=== PATIENT | female | born 1930 | race Caucasian/White ===

== ENCOUNTER 2016-04-13 05:10 | Emergency (ER) | payer MEDICARE, BC ==
[2016-04-13] MEDS ORDERED: MUPIROCIN 2% OINTMENT 22 GM TP ONE (07:26)
--- NOTE | 2016-04-13 07:26 | ER Document Report ---
ED General <CONOR HINTON - Last Filed: 04/13/16 07:27> - General TRAVEL OUTSIDE OF THE [place] IN LAST 30 DAYS: No - HPI Patient complains to provider of: abscess nose pain <SURYA JEONG - Last Filed: 04/13/16 14:35> - General Chief Complaint: Abscess Stated Complaint: SORE NOSE - HPI Notes: Patient coming in for evaluation ofpain possible abscess to her nose. States ongoing for the last 3 days. Patient otherwise denies any fevers chills nausea vomiting (SURYA JEONG) - Related Data Allergies/Adverse Reactions: thimerosal [Thimerosal] Allergy (Unknown, Verified 03/21/11 09:19) adhesive tape [Adhesive Tape] Allergy (Verified 03/17/11 11:07) walker skin oxycodone HCl [From Percocet] Allergy (Verified 03/17/11 11:07) sick Past Medical History - Social History Smoking Status: Never Smoker Chew tobacco use (# tins/day): No Frequency of alcohol use: None Drug Abuse: None Family History: Reviewed & Not Pertinent Patient has suicidal ideation: No Patient has homicidal ideation: No - Past Medical History Cardiac Medical History: Reports: Hx Hypertension - medicated Denies: Hx Heart Attack Pulmonary Medical History: Denies: Hx Asthma Neurological Medical History: Denies: Hx Cerebrovascular Accident, Hx Seizures Renal/ Medical History: Denies: Hx Peritoneal Dialysis GI Medical History: Denies: Hx Hepatitis, Hx Hiatal Hernia, Hx Ulcer Psychiatric Medical History: Denies: Hx Depression Infectious Medical History: Denies: Hx Hepatitis Past Surgical History: Denies: Hx Hysterectomy, Hx Mastectomy, Hx Open Heart Surgery, Hx Pacemaker - Immunizations Hx Pneumococcal Vaccination: 11/16/12 <SURYA JEONG - Last Filed: 04/13/16 14:35> Review of Systems - Review of Systems Constitutional: No symptoms reported EENT: Other - nose pain Cardiovascular: No symptoms reported Respiratory: No symptoms reported Gastrointestinal: No symptoms reported Genitourinary: No symptoms reported Female Genitourinary: No symptoms reported Musculoskeletal: No symptoms reported Skin: No symptoms reported Hematologic/Lymphatic: No symptoms reported Neurological/Psychological: No symptoms reported <SURYA JEONG - Last Filed: 04/13/16 14:35> Physical Exam - Vital signs Interpretation: Normal - General General appearance: Appears well, Alert - HEENT Head: Normocephalic, Atraumatic Eyes: Normal Conjunctiva: Normal Cornea: Normal Extraocular movements intact: Yes Eyelashes: Normal Pupils: PERRL Nasal: Other - Patienthasasmallpimpletotheinsideoftheleftnearwithsurroundingcellulitis - Respiratory Respiratory status: No respiratory distress Chest status: Nontender Breath sounds: Normal Chest palpation: Normal - Cardiovascular Rhythm: Regular Heart sounds: Normal auscultation Murmur: No - Abdominal Inspection: Normal Distension: No distension Bowel sounds: Normal Tenderness: Nontender Organomegaly: No organomegaly - Back Back: Normal, Nontender - Extremities General upper extremity: Normal inspection, Nontender, Normal color, Normal ROM , Normal temperature General lower extremity: Normal inspection, Nontender, Normal color, Normal ROM , Normal temperature, Normal weight bearing. No: Nir's sign - Neurological Neuro grossly intact: Yes Cognition: Normal Orientation: AAOx4 [place] Coma Scale Eye Opening: Spontaneous Cheryl Coma Scale Verbal: Oriented Cheryl Coma Scale Motor: Obeys Commands Cheryl Coma Scale Total: 15 Speech: Normal Motor strength normal: LUE, RUE, LLE, RLE Sensory: Normal - Psychological Associated symptoms: Normal affect, Normal mood - Skin Skin Temperature: Warm Skin Moisture: Dry Skin Color: Normal <SURYA JEONG - Last Filed: 04/13/16 14:35> - Vital signs Vitals: Temp Pulse Resp BP Pulse Ox 97.7 F 66 20 144/65 H 96 04/13/16 05:22 04/13/16 05:22 04/13/16 05:22 04/13/16 05:22 04/13/16 05:22 (CONOR HINTON) (SURYA JEONG) Course <CONOR HINTON - Last Filed: 04/13/16 07:27> <SURYA JEONG - Last Filed: 04/13/16 14:35> - Re-evaluation Re-evalutation: 04/13/16 14:34 Patient will be started on Bactrim and Bactroban for anabolic coverage. Underwent IND see note (SURYA JEONG) - Vital Signs Vital signs: Temp Pulse Resp BP Pulse Ox 98.3 F 55 L 20 138/66 H 99 04/13/16 09:05 04/13/16 09:05 04/13/16 09:05 04/13/16 09:05 04/13/16 09:05 (CONOR HINTON) (SURYA JEONG) Procedures - Incision and Drainage left nare Time completed: 07:27 Type: Simple I&D procedure: Betadine prep applied Incision Method: Incision made with needle Adult Head Front/Back picture: 1 - abscess deroofed, pt tolerated procedure well <CONOR HINTON - Last Filed: 04/13/16 07:27> Discharge <CONOR HINTON - Last Filed: 04/13/16 07:27> <SURYA JEONG - Last Filed: 04/13/16 14:35> - Discharge Clinical Impression: Abscess Cellulitis Qualifiers: Site of cellulitis: face Qualified Code(s): L03.211 - Cellulitis of face Condition: Good Disposition: HOME, SELF-CARE Instructions: Trimethoprim-Sulfa ([facility]), Post Incision and Drainage, Abscess ( [facility]) Additional Instructions: Please take the antibiotic as prescribed. Please use the ointment as directed to was well. Follow-up with your primary care physician in 3-5 days. Prescriptions: Mupirocin Calcium [Bactroban 2% Cream 15 gm] 1 applic TP TID #1 tube Sulfamethoxazole/Trimethoprim [Bactrim Ds Tablet] 1 each PO BID 10 Days Referrals: JUSTICE HARRIS MD [Primary Care Provider] - Follow up in 3-5 days
[2016-04-13] MEDS ORDERED: SULFAMETHOXAZOLE/TRIMETHOPRIM 800-160 MG TABLET PO ONE (07:49)
[2016-04-13 09:10] VITALS: BP 138/66
== END 2016-04-13 09:20 | disposition home or self-care (01) ==
LOC: ER 05:10
PROC: 0H91XZZ Drainage of Face Skin, External Approach (ICD-10-PCS; principal; 2016-04-13)
DX: J34.0 Abscess, furuncle and carbuncle of nose (principal); L03.211 Cellulitis of face; I10 Essential (primary) hypertension; Z88.5 Allergy status to narcotic agent; Z91.048 Other nonmedicinal substance allergy status
CPT/HCPCS: 99283

== ENCOUNTER → 2017-05-19 | Outpatient (CLI) | payer MEDICARE, BC ==
[2017-05-19 14:56] LABS: C-REACTIVE PROTEIN 38.8 mg/L (<10.0); URIC ACID 5.5 mg/dL (2.5-7.5)
== END ==
LOC: OD 13:34
PROVIDERS: ATTEND Internal Medicine Geriatric Medicine
DX: M06.4 Inflammatory polyarthropathy (principal)
CPT/HCPCS: 36415; 84550; 85652; 86140; 86430

== ENCOUNTER 2017-05-23 19:12 | Emergency (ER) | payer MEDICARE, BC ==
[2017-05-23 19:27] VITALS: BP 130/53
--- NOTE | 2017-05-23 19:53 | ER Document Report ---
ED General - General Chief Complaint: Hand Swelling Stated Complaint: HAND PAIN Time Seen by Provider: 05/23/17 19:39 Notes: A 6-year-old female here with complaints of continued bilateral hand swelling and pain ongoing for over a month now. The right more so than the left. They have been seeing their primary physician about this issue outpatient. She has had numerous blood tests performed and states they cannot figure out what is going on. She denies any fevers chills chest pain shortness of breath leg swelling. No prior history of cellulitis MRSA. TRAVEL OUTSIDE OF THE [place] IN LAST 30 DAYS: No - Related Data Allergies/Adverse Reactions: thimerosal [Thimerosal] Allergy (Unknown, Verified 03/21/11 09:19) adhesive tape [Adhesive Tape] Allergy (Verified 03/17/11 11:07) walker skin oxycodone HCl [From Percocet] Allergy (Verified 03/17/11 11:07) sick Past Medical History - Social History Smoking Status: Never Smoker Chew tobacco use (# tins/day): No Frequency of alcohol use: None Drug Abuse: None Family History: Reviewed & Not Pertinent Patient has suicidal ideation: No Patient has homicidal ideation: No - Past Medical History Cardiac Medical History: Reports: Hx Hypertension - medicated Denies: Hx Heart Attack Pulmonary Medical History: Denies: Hx Asthma Neurological Medical History: Denies: Hx Cerebrovascular Accident, Hx Seizures Renal/ Medical History: Denies: Hx Peritoneal Dialysis GI Medical History: Denies: Hx Hepatitis, Hx Hiatal Hernia, Hx Ulcer Psychiatric Medical History: Denies: Hx Depression Infectious Medical History: Denies: Hx Hepatitis Past Surgical History: Denies: Hx Hysterectomy, Hx Mastectomy, Hx Open Heart Surgery, Hx Pacemaker - Immunizations Hx Pneumococcal Vaccination: 11/16/12 Review of Systems - Review of Systems Notes: See history of present illness for pertinent positive review of systems; otherwise all review of systems have been reviewed and are negative Physical Exam - Vital signs Vitals: Temp Pulse Resp BP Pulse Ox 97.8 F 71 22 H 130/53 H 95 05/23/17 19:25 05/23/17 19:25 05/23/17 19:25 05/23/17 19:25 05/23/17 19:25 - Notes Notes: PHYSICAL EXAMINATION: GENERAL: Well-appearing and in no acute distress. HEAD: Atraumatic, normocephalic. EYES: Pupils equal round and reactive to light, extraocular movements intact, sclera anicteric, conjunctiva are normal. ENT: nares patent, oropharynx clear without exudates. Moist mucous membranes. NECK: Normal range of motion, supple without lymphadenopathy LUNGS: CTAB and equal. No wheezes rales or rhonchi. HEART: Regular rate and rhythm without murmurs ABDOMEN: Soft, no tenderness. No facial grimacing/wincing upon palpation. No guarding, no rebound. EXTREMITIES: Normal range of motion. No cyanosis. There is minimal swelling of the left hand and no cellulitis. There is mild swelling of the right hand and distal forearm with overlying minimal erythema and pitting edema. There is no lower extremity pitting edema. NEUROLOGICAL: Cranial nerves grossly intact. Normal sensory/motor exams. PSYCH: Normal mood, normal affect. SKIN: Warm, Dry, normal turgor, no rashes or lesions noted Course - Re-evaluation Re-evalutation: 05/23/17 19:53 MEDICAL DECISION MAKING: Concern for mild cellulitis given the exam findings Her swelling has been ongoing and she is following up outpatient with PCP Will prescribe clindamycin and instructed continue outpatient follow-up Patient understands and agrees to the plan of care - Vital Signs Vital signs: Temp Pulse Resp BP Pulse Ox 97.8 F 71 22 H 130/53 H 95 05/23/17 19:25 05/23/17 19:25 05/23/17 19:25 05/23/17 19:25 05/23/17 19:25 Discharge - Discharge Clinical Impression: Bilateral hand swelling Condition: Good Disposition: HOME, SELF-CARE Additional Instructions: Finish the antibiotics and do not skip any doses. Continue following with your doctor for this chronic hand swelling. You were seen in the emergency department at [facility]. If you were given any sedating medications, be sure not to operate heavy machinery (example - driving) and be sure you are not too sedated to walk appropriately. Please followup with your primary physician in the next few days for further management/evaluation. Please return to the emergency department for worsening of symptoms or any symptom that you deem to be concerning or life-threatening. Thank you for allowing us to be part of your care. Prescriptions: Oxycodone HCl 5 mg PO Q6HP PRN #7 capsule PRN Reason: Clindamycin HCl 150 mg PO TID 7 Days capsule
== END 2017-05-23 19:57 | disposition home or self-care (01) ==
LOC: ER 19:12
DX: M79.89 Other specified soft tissue disorders (principal); M79.641 Pain in right hand; M79.642 Pain in left hand; I10 Essential (primary) hypertension
CPT/HCPCS: 99283

== ENCOUNTER → 2017-10-09 | Outpatient (CLI) | payer MEDICARE, BC ==
[2017-10-09 12:24] LABS: ALANINE AMINOTRANSFERASE 14 U/L (9-52); ALBUMIN 3.3 g/dL (3.5-5.0); ALKALINE PHOSPHATASE 105 U/L (38-126); ANION GAP 15 (5-19); ASPARTATE AMINO TRANSFERASE 18 U/L (14-36); BILIRUBIN,DIRECT 0.3 mg/dL (0.0-0.4); BILIRUBIN,TOTAL 0.5 mg/dL (0.2-1.3); BLOOD UREA NITROGEN 12 mg/dL (7-20); CALCIUM 9.2 mg/dL (8.4-10.2); CARBON DIOXIDE 24 mmol/L (22-30); CHLORIDE 104 mmol/L (98-107); GLUCOSE 117 mg/dL (75-110); POTASSIUM 3.8 mmol/L (3.6-5.0); SODIUM 142.7 mmol/L (137-145); TOTAL PROTEIN 6.3 g/dL (6.3-8.2)
== END ==
LOC: OD 11:05
PROVIDERS: ATTEND Internal Medicine Geriatric Medicine
DX: I10 Essential (primary) hypertension (principal)
CPT/HCPCS: 36415; 80053

== ENCOUNTER 2018-01-31 17:12 | Inpatient (IN) | payer MEDICARE, BC ==
--- NOTE | 2018-01-31 18:02 | ER Document Report ---
ED Medical Screen (RME) - General Chief Complaint: Fall Injury Stated Complaint: FALL/LEG AND KNEE PAIN Time Seen by Provider: 01/31/18 18:00 Mode of Arrival: Wheelchair Information source: Patient, Friend, [facility] Records Notes: 87-year-old female presents with complaint of bilateral knee pain and right hip pain after a fall that occurred yesterday. Since then patient has been unable to bear weight or walk. She denies any preceding chest pain, shortness of breath or lightheadedness. I have greeted and performed a rapid initial assessment of this patient. A comprehensive ED assessment and evaluation of the patient, analysis of test results and completion of medical decision making process we will be contacted by additional ED providers. PHYSICAL EXAMINATION: Vital signs reviewed GENERAL: Well-appearing, well-nourished and in no acute distress. LUNGS: No respiratory distress NEUROLOGICAL: Normal speech, normal gait. PSYCH: Normal mood, normal affect. SKIN: Abrasion knee bilaterally TRAVEL OUTSIDE OF THE [place] IN LAST 30 DAYS: No - HPI Onset: Yesterday Onset/Duration: Sudden Quality of pain: Throbbing Severity: Moderate Associated Symptoms: denies: Chest pain, Dizzy/lightheaded, Nausea, Shortness of breath Exacerbated by: Movement Relieved by: Denies Similar symptoms previously: No Recently seen / treated by doctor: No - Related Data Smoking: Non-smoker Frequency of alcohol use: None Drug Abuse: None Allergies/Adverse Reactions: thimerosal [Thimerosal] Allergy (Unknown, Verified 03/21/11 09:19) adhesive tape [Adhesive Tape] Allergy (Verified 03/17/11 11:07) walker skin Past Medical History - Social History Frequency of alcohol use: None Drug Abuse: None - Past Medical History Cardiac Medical History: Reports: Hx Atrial Fibrillation, Hx Hypertension - medicated Denies: Hx Heart Attack Pulmonary Medical History: Denies: Hx Asthma Neurological Medical History: Denies: Hx Cerebrovascular Accident, Hx Seizures Renal/ Medical History: Denies: Hx Peritoneal Dialysis GI Medical History: Denies: Hx Hepatitis, Hx Hiatal Hernia, Hx Ulcer Psychiatric Medical History: Denies: Hx Depression Infectious Medical History: Denies: Hx Hepatitis Past Surgical History: Reports: Hx Abdominal Surgery - colon removed, adhesions , hernia repair, Hx Orthopedic Surgery - bilateral knee replacement, mendoza. shoulder replacement. Denies: Hx Hysterectomy, Hx Mastectomy, Hx Open Heart Surgery, Hx Pacemaker Physical Exam - Vital signs Vitals: Temp Pulse Resp BP Pulse Ox 97.5 F 62 14 155/70 H 100 01/31/18 17:29 01/31/18 17:29 01/31/18 17:29 01/31/18 17:29 18 17:29 Course - Vital Signs Vital signs: Temp Pulse Resp BP Pulse Ox 97.5 F 62 14 155/70 H 100 01/31/18 17:29 01/31/18 17:29 01/31/18 17:29 18 17:29 18 17:29 Doctor's Discharge - Discharge Referrals: JUSTICE HARRIS MD [Primary Care Provider] - Follow up as needed
--- NOTE | 2018-01-31 20:00 | ER Document Report ---
ED General - General Chief Complaint: Fall Injury Stated Complaint: FALL/LEG AND KNEE PAIN Time Seen by Provider: 01/31/18 18:00 Mode of Arrival: Wheelchair Notes: Patient is an 87-year-old female who presents to the emergency department with a chief complaint of bilateral knee pain and right hip pain. She is here for a mechanical fall. This happened yesterday afternoon when she was getting out of the car, she is out and lost her balance and fell on her knees, right hip, and right elbow. She denies any fever, dizziness, chest pain, nausea, vomiting, or any other symptoms. She was able to walk yesterday, but this morning she was unable to walk. She does have a history of atrial fibrillation and she is on Xarelto. She denies any headache. Denies hitting her head. Denies altered level of consciousness. She also has a past medical history of hypothyroidism and hypertension. Her past surgical history includes bilateral knee replacement (20 years ago), bilateral shoulder replacements, and colostomy with reversal. TRAVEL OUTSIDE OF THE [place] IN LAST 30 DAYS: No - Related Data Allergies/Adverse Reactions: thimerosal [Thimerosal] Allergy (Unknown, Verified 03/21/11 09:19) adhesive tape [Adhesive Tape] Allergy (Verified 03/17/11 11:07) walker skin Past Medical History - General Information source: Patient, Friend, [facility] Records - Social History Smoking Status: Never Smoker Frequency of alcohol use: None Drug Abuse: None Family History: Reviewed & Not Pertinent Patient has suicidal ideation: No Patient has homicidal ideation: No - Past Medical History Cardiac Medical History: Reports: Hx Atrial Fibrillation, Hx Hypertension - medicated Denies: Hx Heart Attack Pulmonary Medical History: Denies: Hx Asthma Neurological Medical History: Denies: Hx Cerebrovascular Accident, Hx Seizures Renal/ Medical History: Denies: Hx Peritoneal Dialysis GI Medical History: Denies: Hx Hepatitis, Hx Hiatal Hernia, Hx Ulcer Psychiatric Medical History: Denies: Hx Depression Infectious Medical History: Denies: Hx Hepatitis Past Surgical History: Reports: Hx Abdominal Surgery - colon removed, adhesions , hernia repair, Hx Orthopedic Surgery - bilateral knee replacement, mendoza. shoulder replacement. Denies: Hx Hysterectomy, Hx Mastectomy, Hx Open Heart Surgery, Hx Pacemaker - Immunizations Hx Pneumococcal Vaccination: 11/16/12 Review of Systems - Review of Systems Notes: REVIEW OF SYSTEMS: CONSTITUTIONAL : Denies recent illness. Denies recent unintentional weight loss. Denies fever, chills, or sweats. EENT: Denies eye, ear, throat, or mouth pain, discharge, or symptoms. Denies nasal or sinus congestion. CARDIOVASCULAR: Denies chest pain. RESPIRATORY: Denies shortness of breath, cough, congestion, difficulty breathing , or wheezing. GASTROINTESTINAL: Denies nausea, vomiting, and diarrhea. Denies abdominal pain. Denies constipation. GENITOURINARY: Denies difficulty urinating, burning, blood in urine, urgency or frequency. MUSCULOSKELETAL: See HPI SKIN: Denies rash, itchiness, or lesions HEMATOLOGIC : Denies easy bruising or bleeding. LYMPHATIC: Denies swollen, painful, enlarged glands. NEUROLOGICAL: Denies no numbness or tingling denies weakness. Denies headache. Denies altered mental status. Denies alteration in speech. PSYCHIATRIC: Denies stress, anxiety, alteration in sleep patterns, or depression. All other systems reviewed and negative. Physical Exam - Vital signs Vitals: Temp Pulse Resp BP Pulse Ox 97.5 F 62 14 155/70 H 100 01/31/18 17:29 01/31/18 17:29 01/31/18 17:29 01/31/18 17:29 01/31/18 17:29 - Notes Notes: PHYSICAL EXAMINATION: GENERAL: Appears well, healthy, well-nourished, no acute distress. HEAD: Normocephalic, atraumatic. EYES: PERRL, conjunctiva normal, all extraocular movements intact, sclera nonicteric ENT: Moist mucous membranes. NECK: Supple, no noticeable swelling, redness, rash. Normal range of motion. LUNGS: Equal breath sounds bilaterally and clear to auscultation. No wheezes rales or rhonchi. CARDIOVASCULAR: S1-S2, regular rate, regular rhythm. Radial pulses 2+, normal. ABDOMEN: Normoactive bowel sounds. Soft, large, nontender, no guarding, no rebound tenderness. EXTREMITIES: Decreased range of motion to right leg. 1+ pitting edema to bilateral lower extremities. NEUROLOGICAL: Moves all extremities upon command. Strength 5/5 in all extremities. PSYCH: Normal mood, normal affect. SKIN: Warm, dry. No rash, lesions, ulcerations noted. Normal skin turgor. NEUROVASCULAR: 2+ dorsalis pedis pulses. Normal neurovascular exam. Course - Re-evaluation Re-evalutation: 01/31/18 20:30 Patient is unable to move her right leg, I am suspicious she has an acute injury to her right knee or right hip. She does complain of pain to the right hip, but states her pain is not that bad. Since she did not hit her head, I do not suspect any brain injury. She is appropriate and answering questions. She states she has not been confused or had any significant change in level of consciousness. Her certified orthoptist is at bedside and states she has not had a bowel movement in 3 days, but the patient denies any abdominal pain. I have encouraged the patient to have a bowel movement because I am able to palpate stool on physical exam. 01/31/18 21:15 Dr. Medrano was notified by ZEYAD Reynoso that the patient has a right hip fracture. Dr. Mosley will be notified for admission for medical management because she is older than 70 years old. I will order a chest x-ray, twelve- lead EKG, CBC and CMP for preop. 01/31/18 21:34 Dr. Mosley was notified of patient's right hip fracture. He is excepted her for admission to [facility]. - Vital Signs Vital signs: Temp Pulse Resp BP Pulse Ox 98.6 F 62 23 H 156/71 H 93 02/01/18 00:00 01/31/18 17:29 02/01/18 00:02 02/01/18 00:02 02/01/18 00:02 - Laboratory Result Diagrams: 01/31/18 22:22 01/31/18 22:22 Discharge - Discharge Clinical Impression: Closed right hip fracture Qualifiers: Encounter type: initial encounter Qualified Code(s): S72.001A - Fracture of unspecified part of neck of right femur, initial encounter for closed fracture Condition: Fair Disposition: ADMITTED INPATIENT Admitting Provider: Dimitri Unit Admitted: [facility]
--- NOTE | 2018-01-31 20:44 | RADIOLOGY REPORT (SQ) ---
EXAM DESCRIPTION: PELVIS AP COMPLETED DATE/TIME: 01/31/2018 8:21 pm REASON FOR STUDY: pain inability to ambulate COMPARISON: None. NUMBER OF VIEWS: One view TECHNIQUE: AP Pelvis LIMITATIONS: None. FINDINGS: There is diffuse osteopenia. There is an acute, displaced impacted fracture at the right femoral neck. The left hip joint is maintained. The pelvic ring appears intact. Degenerative samaniego es are noted at the visualized lower lumbar spine and sacroiliac joints. Multiple surgical clips are noted within the left lower quadrant. The soft tissues are unremarkable. IMPRESSION: Osteopenia. Acute, impacted fracture of the right femoral neck. TECHNICAL DOCUMENTATION: JOB ID: [id number] 2010 [employer]- All Rights Reserved Reading location - IP/workstation name: [email or web address]
--- NOTE | 2018-01-31 20:48 | RADIOLOGY REPORT (SQ) ---
EXAM DESCRIPTION: ELBOW RIGHT OVER 2 VIEWS COMPLETED DATE/TIME: 01/31/2018 8:21 pm REASON FOR STUDY: fall getting out of the car. Pain all over . COMPARISON: None. NUMBER OF VIEWS: Four views. TECHNIQUE: AP, lateral, and both oblique radiographic images acquired of the right elbow. LIMITATIONS: None. FINDINGS: MINERALIZATION: Normal. BONES: No acute fracture or dislocation. JOINT: No effusion. SOFT TISSUES: No soft tissue swelling. No radiopaque foreign body. IMPRESSION: No radiographic evidence for acute fracture of the right elbow. TECHNICAL DOCUMENTATION: JOB ID: [id number] 2010 [facility]- All Rights Reserved Reading location - IP/workstation name: [email or web address]
--- NOTE | 2018-01-31 20:53 | RADIOLOGY REPORT (SQ) ---
EXAM DESCRIPTION: KNEE BILATERAL 1-2 VIEWS COMPLETED DATE/TIME: 01/31/2018 8:21 pm REASON FOR STUDY: fall getting out of the car. Pain all over, worse at the right knee. COMPARISON: None. NUMBER OF VIEWS: Four views. TECHNIQUE: AP and lateral radiographic images acquired of the right and left knees. LIMITATIONS: None. FINDINGS: MINERALIZATION: Osteopenia. 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 The re is no acute fracture or dislocation. The orthopedic hardware appears intact. JOINT: No effusion. SOFT TISSUES: There is diffuse soft tissue swelling at the right knee. Vascular calcifications are n oted. IMPRESSION: Status post total bilateral knee arthroplasties with no radiographic evidence for acute fracture. Diffuse soft tissue swelling at the right knee. TECHNICAL DOCUMENTATION: JOB ID: [id number] 2010 [employer]- All Rights Reserved Reading location - IP/workstation name: [email or web address]
[2018-01-31] MEDS ORDERED: FENTANYL CITRATE INJ/PF 100 MCG/2 ML AMPUL IV ONE (21:09)
--- NOTE | 2018-01-31 22:05 | RADIOLOGY REPORT (SQ) ---
EXAM DESCRIPTION: XR CHEST 1 VIEW COMPLETED DATE/TME: 01/31/2018 21:37 CLINICAL HISTORY: 87 years, Female, pre-op Findings: Heart is mildly enlarged. Aorta is within normal limits. No consolidation or pleural effusion. No pulmonary edema or pneumothorax. IMPRESSION: No acute disease.
[2018-01-31 22:19] LABS: APPEARANCE,URINE CLEAR; BILIRUBIN,URINE NEGATIVE (NEGATIVE); COLOR,URINE YELLOW; GLUCOSE, URINE NEGATIVE (NEGATIVE); KETONES,URINE NEGATIVE (NEGATIVE); LEUKOCYTE ESTERASE,URINE NEGATIVE (NEGATIVE); NITRITE,URINE NEGATIVE (NEGATIVE); PROTEIN,URINE 30 mg/dL (NEGATIVE)
[2018-01-31 22:33] LABS: HEMATOCRIT 32.2 % (36.0-47.0); HEMOGLOBIN 10.2 g/dL (12.0-15.5); MEAN CORPUSCULAR HEMOGLOBIN 26.9 pg (27.0-33.4); MEAN CORPUSCULAR HGB CONC 31.7 g/dL (32.0-36.0); MEAN CORPUSCULAR VOLUME 85 fl (80-97); PLATELET COUNT 515 10^3/uL (150-450); RED CELL DISTRIBUTION WIDTH 17.7 % (11.5-14.0); WHITE BLOOD COUNT 20.4 10^3/uL (4.0-10.5)
[2018-01-31 22:48] LABS: ALANINE AMINOTRANSFERASE 18 U/L (9-52); ALBUMIN 3.1 g/dL (3.5-5.0); ALKALINE PHOSPHATASE 152 U/L (38-126); ANION GAP 11 (5-19); ASPARTATE AMINO TRANSFERASE 33 U/L (14-36); BILIRUBIN,DIRECT 0.6 mg/dL (0.0-0.4); BILIRUBIN,TOTAL 1.1 mg/dL (0.2-1.3); BLOOD UREA NITROGEN 14 mg/dL (7-20); CALCIUM 8.6 mg/dL (8.4-10.2); CARBON DIOXIDE 26 mmol/L (22-30); CHLORIDE 97 mmol/L (98-107); GLUCOSE 163 mg/dL (75-110); POTASSIUM 4.5 mmol/L (3.6-5.0); SODIUM 133.9 mmol/L (137-145); TOTAL PROTEIN 6.3 g/dL (6.3-8.2)
[2018-01-31 22:49] LABS: ABSOLUTE LYMPHOCYTES# (MANUAL) 1.2 10^3/uL (0.5-4.7); ABSOLUTE MONOCYTES # (MANUAL) 0.6 10^3/uL (0.1-1.4); ABSOLUTE NEUTROPHILS# (MANUAL) 18.6 10^3/uL (1.7-8.2); BASOPHILS % (MANUAL) 0 % (0-2); EOSINOPHILS % (MANUAL) 0 % (0-6); LYMPHOCYTES % (MANUAL) 6 % (13-45); MONOCYTES % (MANUAL) 3 % (3-13); SEGMENTED NEUTROPHILS % (MAN) 91 % (42-78); TOTAL CELLS COUNTED 100
[2018-01-31 22:54] LABS: BURR CELLS SLIGHT; HELMET CELLS SLIGHT; OVALOCYTES 1+; TEAR DROP CELLS SLIGHT; TOXIC GRANULATION 1+; TOXIC VACUOLATION PRESENT
[2018-01-31 22:55] LABS: ANISOCYTOSIS 1+; PLATELET COMMENT ADEQUATE; POIKILOCYTOSIS 1+
--- NOTE | 2018-02-01 00:51 | EKG REPORT ---
SEVERITY:- ABNORMAL ECG - ATRIAL FIBRILLATION LEFT AXIS DEVIATION LOW VOLTAGE IN FRONTAL LEADS NONSPECIFIC T ABNORMALITIES, ANT-LAT LEADS : Confirmed by: Nette Glover MD 01-Feb-2018 00:50:36
[2018-02-01] MEDS ORDERED: MORPHINE SULFATE 10 MG/ML INJ IV ONE (01:16)
[2018-02-01] MEDS: ONDANSETRON HCL INJ/PF 4 MG/2 ML SDV IV PRN (01:23)
[2018-02-01] MEDS ORDERED: DEXTROSE 5%-WATER 1000 ML 1,000 ML IV PRN (06:31)
[2018-02-01] MEDS ORDERED: DEXTROSE 40% GEL 15 GM TUBE PO PRN ×2 (06:31)
[2018-02-01] MEDS ORDERED: GLUCAGON,HUMAN RECOMB 1 MG INJ SUBCUT PRN (06:31)
[2018-02-01] MEDS ORDERED: DEXTROSE 50%-WATER 25 GM/50 ML DISP.SYRIN IV PRN ×2 (06:31)
[2018-02-01] MEDS: LANSOPRAZOLE 30 MG TAB.RAP.DR PO SCH (06:49)
--- NOTE | 2018-02-01 07:13 | PDOC CONSULTATION ---
Consultation Consult Date: 02/01/18 Consult reason:: Right hip fracture History of Present Illness Admission Date/PCP: 01/31/18 21:46 JUSTICE KIMBERLY History of Present Illness: WILLIAM FISH is a 87 year old female The patient is an 87-year-old white female who is hard of hearing, a household ambulator with a walker, on Xarelto for atrial fibrillation, who fell on the day prior and sustained a right hip injury. She was evaluated in the emergency room where a right femoral neck fracture was identified. She is admitted to her primary care physician and orthopedics is consulted for fracture management. Past Medical History Cardiac Medical History: Reports: Atrial Fibrillation, Hypertension - medicated Denies: Myocardial Infarction Pulmonary Medical History: Denies: Asthma Neurological Medical History: Denies: Seizures GI Medical History: Denies: Hepatitis, Hiatal Hernia Psychiatric Medical History: Denies: Depression Hematology: Denies: Anemia, Sickle Cell Disease Past Surgical History Past Surgical History: Reports: Orthopedic Surgery - bilateral knee replacement , mendoza. shoulder replacement Denies: Amputation, Hysterectomy, Mastectomy, Pacemaker Social History Information Source: Patient, [facility]LY [facility], LATER [facility] Records Smoking Status: Never Smoker Frequency of Alcohol Use: None Hx Recreational Drug Use: No Drugs: None Hx Prescription Drug Abuse: No - Advance Directive Resuscitation Status: Full Code Family History Family History: Reviewed & Not Pertinent Parental Family History Reviewed: No Children Family History Reviewed: No Sibling(s) Family History Reviewed.: No Medication/Allergy Home Medications: Furosemide [Lasix 40 mg Tablet] 40 mg PO QAM 03/17/11 [place]-3 Fatty Acids/Fish Oil [[place] 3 1,000 mg Softgel] 3,000 mg PO DAILY Potassium Chloride [Klor-Con 10 Meq Capsule ER] 20 meq PO Q12H 03/17/11 Calcium Carbonate [Calcium] 600 mg PO TID 04/25/13 Fluticasone Propionate [Flonase Nasal [place] 50 Mcg/[place] 16 gm] 2 sprays NASL DAILY PRN 07/13/14 Tramadol HCl/Acetaminophen [Tramadol-Acetaminophn 37.5-325] 1 each PO Q6HP PRN 07/13/14 Mupirocin Calcium [Bactroban 2% Cream 15 gm] 1 applic TP TID #1 tube 04/13/16 Oxycodone HCl 5 mg PO Q6HP PRN #7 capsule 05/23/17 Amlodipine Besylate [Norvasc 5 mg Tablet] 5 mg PO DAILY 01/31/18 Amoxicillin 500 mg PO DAILY PRN 01/31/18 Atorvastatin Calcium [Lipitor 10 mg Tablet] 10 mg PO DAILY 01/31/18 Cetirizine HCl [Zyrtec 5 mg Tablet] 5 mg PO DAILY PRN 01/31/18 Duloxetine HCl [Cymbalta] 20 mg PO QHS 01/31/18 Levothyroxine Sodium [Synthroid 0.088 mg Tablet] 88 mcg PO DAILY 01/31/18 Allergies/Adverse Reactions: thimerosal [Thimerosal] Allergy (Unknown, Verified 03/21/11 09:19) adhesive tape [Adhesive Tape] Allergy (Verified 03/17/11 11:07) walker skin Review of Systems All systems: as per PMH Physical Exam Vital Signs: Temp Pulse Resp BP Pulse Ox 36.8 C 83 20 146/55 H 94 02/01/18 02:28 02/01/18 02:28 02/01/18 02:28 02/01/18 02:28 02/01/18 02:28 Intake & Output 01/31/18 02/01/18 02/02/18 06:59 06:59 06:59 Intake Total 0 Output Total 1050 Balance -1050 Weight 101.9 kg Physical Exam: The patient is a moderately built elderly white female lying in a hospital bed. She is accompanied by a caregiver in the recliner next to her. She is alert and appropriate. General appearance: PRESENT: no acute distress, mild distress Head exam: PRESENT: normocephalic Respiratory exam: PRESENT: unlabored Cardiovascular exam: PRESENT: RRR Pulses: PRESENT: +1 pedal pulses bilateral Vascular exam: PRESENT: normal capillary refill GI/Abdominal exam: PRESENT: soft Rectal exam: PRESENT: deferred Extremities exam: PRESENT: other - Right lower extremity is shortened and externally rotated distal neurovascular examination is intact. Neurological exam: PRESENT: alert, awake, oriented to person, oriented to place , oriented to time, oriented to situation, other - Hard of hearing. ABSENT: motor sensory deficit Psychiatric exam: PRESENT: appropriate affect, normal mood. ABSENT: homicidal ideation, suicidal ideation Skin exam: PRESENT: dry, intact, warm. ABSENT: cyanosis, rash Results Laboratory Results: 01/31/18 22:22 01/31/18 22:22 01/31/18 01/31/18 01/31/18 21:58 22:22 22:22 WBC 20.4 H RBC 3.80 Hgb 10.2 L Hct 32.2 L MCV 85 MCH 26.9 L MCHC 31.7 L RDW 17.7 H Plt Count 515 H Seg Neutrophils % Not Reportable Lymphocytes % Not Reportable Monocytes % Not Reportable Eosinophils % Not Reportable Basophils % Not Reportable Absolute Neutrophils Not Reportable Absolute Lymphocytes Not Reportable Absolute Monocytes Not Reportable Absolute Eosinophils Not Reportable Absolute Basophils Not Reportable Sodium 133.9 L Potassium 4.5 Chloride 97 L Carbon Dioxide 26 Anion Gap 11 BUN 14 Creatinine 0.59 Est GFR ( Amer) > 60 Est GFR (Non-Af Amer) > 60 Glucose 163 H Calcium 8.6 Total Bilirubin 1.1 AST 33 ALT 18 Alkaline Phosphatase 152 H Total Protein 6.3 Albumin 3.1 L Urine Color YELLOW Urine Appearance CLEAR Urine pH 6.0 Ur Specific [place] 1.020 Urine Protein 30 H Urine Glucose (UA) NEGATIVE Urine Ketones NEGATIVE Urine Blood NEGATIVE Urine Nitrite NEGATIVE Ur Leukocyte Esterase NEGATIVE Urine WBC (Auto) 1 Urine RBC (Auto) 0 Impressions: Knee X-Ray 01/31/18 18:00 IMPRESSION: Status post total bilateral knee arthroplasties with no radiographic evidence for acute fracture. Diffuse soft tissue swelling at the right knee. Pelvis X-Ray 01/31/18 18:00 IMPRESSION: Osteopenia. Acute, impacted fracture of the right femoral neck. Elbow X-Ray 01/31/18 19:55 IMPRESSION: No radiographic evidence for acute fracture of the right elbow. Chest X-Ray 01/31/18 21:37 IMPRESSION: No acute disease. Status: Imported from PACS Assessment & Plan - Diagnosis (1) Closed right hip fracture Qualifiers: Encounter type: initial encounter Qualified Code(s): S72.001A - Fracture of unspecified part of neck of right femur, initial encounter for closed fracture Plan: 87-year-old white female household ambulator with a displaced right femoral neck fracture. Patient be best served with a right hemiarthroplasty to enable weightbearing as tolerated ambulation. This is discussed with the patient and her caregiver in great detail. We will proceed pending medical clearance and or availability. - Time Time Spent: 50 to 70 Minutes Anticipated discharge: SNF Within: Other
[2018-02-01] MEDS ORDERED: INSULIN LISPRO 100 UNIT/ML 3 ML VIAL SUBCUT PRN (07:45)
[2018-02-01] MEDS ORDERED: TRANEXAMIC ACID INJ/PF 1,000 MG/10 ML SDV IV PRN (08:27)
[2018-02-01] MEDS ORDERED: VANCOMYCIN HCL 1,000 MG in DEXTROSE 5%-WATER 250 ML IV PRN (08:27)
[2018-02-01 08:43] LABS: INTERNATIONAL RATION (INR) 1.46; PROTHROMBIN TIME 18.4 SEC (11.4-15.4)
[2018-02-01 08:44] LABS: PARTIAL THROMBOPLASTIN TIME 48.8 SEC (23.5-35.8)
[2018-02-01] MEDS: MORPHINE SULFATE 10 MG/ML INJ IV PRN ×3 (09:23→21:00)
[2018-02-01] MEDS: RINGERS SOLUTION,LACTATED 1,000 ML IV PRN ×2 (09:28→17:47)
--- NOTE | 2018-02-01 16:35 | PDOC H&P ---
History of Present Illness Admission Date/PCP: 01/31/18 21:46 JUSTICE KIMBERLY Patient complains of: Difficuulty with walking and right hip joint pain History of Present Illness: WILLIAM FISH is a 87 year old female known to my practice who presented to the ED after a day fall history. She was getting out of a car when she lost her balance and fell on her knees, right elbow and hip joints. She was able to ambulate on the day of the incident but woke up on the next day with inability to ambulate and right hip joint pain. Her initial evaluation in the ED with pelvic X ray revealed right impacted femoral neck fracture. She denied any preceding chest pain, palpitation, or loss of consciousness. She has history of chronic atrial fibrillation and currently on Xarelto. Her other morbidities include hypertension, hypothyroidism, osteoarthritis, and hearing impairment. She was advised hospitalization regarding surgical intervention for her right hip fracture. Past Medical History Cardiac Medical History: Reports: Atrial Fibrillation, Hypertension - medicated Denies: Myocardial Infarction Pulmonary Medical History: Denies: Asthma Neurological Medical History: Denies: Seizures GI Medical History: Denies: Hepatitis, Hiatal Hernia Psychiatric Medical History: Denies: Depression Hematology: Denies: Anemia, Sickle Cell Disease Past Surgical History Past Surgical History: Reports: Orthopedic Surgery - bilateral knee replacement , mendoza. shoulder replacement Denies: Amputation, Hysterectomy, Mastectomy, Pacemaker Social History Smoking Status: Never Smoker Frequency of Alcohol Use: None Hx Recreational Drug Use: No Drugs: None Hx Prescription Drug Abuse: No - Advance Directive Resuscitation Status: Full Code Family History Family History: Reviewed & Not Pertinent Parental Family History Reviewed: Yes Children Family History Reviewed: Yes Sibling(s) Family History Reviewed.: Yes Medication/Allergy Home Medications: Furosemide [Lasix 40 mg Tablet] 40 mg PO QAM 03/17/11 Potassium Chloride [Klor-Con 10 Meq Capsule ER] 20 meq PO DAILY 03/17/11 Calcium Carbonate [Calcium] 600 mg PO DAILY 04/25/13 Fluticasone Propionate [Flonase Nasal [place] 50 Mcg/[place] 16 gm] 2 sprays NASL DAILY PRN 07/13/14 Tramadol HCl/Acetaminophen [Tramadol-Acetaminophn 37.5-325] 1 each PO TIDP PRN 07/13/14 Amlodipine Besylate [Norvasc 5 mg Tablet] 5 mg PO DAILY 01/31/18 Cetirizine HCl [Zyrtec 5 mg Tablet] 5 mg PO DAILY 01/31/18 Levothyroxine Sodium [Synthroid 0.088 mg Tablet] 0.088 mg PO Q6AM 01/31/18 Bifidobacterium Infantis [Align 4 mg Capsule] 1 cap PO DAILY 02/01/18 Cyanocobalamin (Vitamin B-12) [Vitamin B-12 Inj 1000 Mcg/1 ml Vial] 1,000 mcg IM .MONTHLY 02/01/18 Duloxetine HCl [Cymbalta 20 Mg Capsule.Dr] 20 mg PO QHS 02/01/18 Krill/Om-3/Dha/Epa/Phospho/Ast [[place]-3 Krill Oil Sfgl] 1 each PO DAILY 02/01/18 Multivitamin/Folic Acid/Biotin [Hair, Skin and Nails Tablet] 3 each PO DAILY Rivaroxaban [Xarelto 15 mg Tablet] 15 mg PO QHS 02/01/18 Rosuvastatin Calcium [Crestor 10 mg Tablet] 10 mg PO QHS 02/01/18 Allergies/Adverse Reactions: thimerosal [Thimerosal] Allergy (Unknown, Verified 03/21/11 09:19) adhesive tape [Adhesive Tape] Allergy (Verified 03/17/11 11:07) walker skin Review of Systems Constitutional: ABSENT: chills, fever(s), headache(s), weight gain, weight loss Eyes: ABSENT: visual disturbances Ears: PRESENT: hearing changes Nose, Mouth, and Throat: ABSENT: as per HPI, headache(s), mouth pain, sore throat, vertigo, other Cardiovascular: ABSENT: chest pain, dyspnea on exertion, edema, orthropnea, palpitations Respiratory: ABSENT: cough, hemoptysis Gastrointestinal: ABSENT: abdominal pain, constipation, diarrhea, hematemesis, hematochezia, nausea, vomiting Genitourinary: ABSENT: dysuria, hematuria Musculoskeletal: PRESENT: deformity - related to multiple joints involvement with arthritis Integumentary: ABSENT: rash, wounds Neurological: ABSENT: abnormal gait, abnormal speech, confusion, dizziness, focal weakness, syncope Endocrine: ABSENT: cold intolerance, heat intolerance, polydipsia, polyuria Hematologic/Lymphatic: ABSENT: easy bleeding, easy bruising, lymphadenopathy Allergic/Immunologic: ABSENT: seasonal rhinorrhea Physical Exam Vital Signs: Temp Pulse Resp BP Pulse Ox 98.0 F 76 16 138/58 H 100 02/01/18 11:41 02/01/18 14:00 02/01/18 11:41 02/01/18 11:41 02/01/18 11:41 Intake & Output 01/31/18 02/01/18 02/02/18 06:59 06:59 06:59 Intake Total 0 197 Output Total 1050 300 Balance -1050 -103 Weight 101.9 kg General appearance: PRESENT: mild distress - due to right hip joint pain, obese Head exam: PRESENT: atraumatic, normocephalic Eye exam: PRESENT: conjunctiva pink, EOMI, PERRLA. ABSENT: scleral icterus Ear exam: PRESENT: normal external ear exam Mouth exam: PRESENT: moist, tongue midline Neck exam: PRESENT: full ROM. ABSENT: carotid bruit, JVD, lymphadenopathy, thyromegaly Respiratory exam: PRESENT: clear to auscultation mendoza, decreased breath sounds - lung bases Cardiovascular exam: PRESENT: irregular rhythm, +S1, +S2. ABSENT: diastolic murmur, systolic murmur Vascular exam: PRESENT: normal capillary refill. ABSENT: pallor GI/Abdominal exam: PRESENT: normal bowel sounds, soft. ABSENT: distended, guarding, mass, organolmegaly, rebound, tenderness Rectal exam: PRESENT: deferred Gentrourinary exam: PRESENT: indwelling catheter Extremities exam: PRESENT: tenderness - right hip joint Musculoskeletal exam: PRESENT: deformity - right hip joint with external rotation of right leg, tenderness - right hip joint Neurological exam: PRESENT: alert, awake, oriented to person, oriented to place , oriented to time, oriented to situation, CN II-XII grossly intact - hearing impairment. ABSENT: motor sensory deficit Psychiatric exam: PRESENT: appropriate affect, normal mood. ABSENT: homicidal ideation, suicidal ideation Skin exam: PRESENT: dry, warm Results Laboratory Results: 01/31/18 22:22 01/31/18 22:22 01/31/18 01/31/18 01/31/18 21:58 22:22 22:22 WBC 20.4 H RBC 3.80 Hgb 10.2 L Hct 32.2 L MCV 85 MCH 26.9 L MCHC 31.7 L RDW 17.7 H Plt Count 515 H Seg Neutrophils % Not Reportable Lymphocytes % Not Reportable Monocytes % Not Reportable Eosinophils % Not Reportable Basophils % Not Reportable Absolute Neutrophils Not Reportable Absolute Lymphocytes Not Reportable Absolute Monocytes Not Reportable Absolute Eosinophils Not Reportable Absolute Basophils Not Reportable Sodium 133.9 L Potassium 4.5 Chloride 97 L Carbon Dioxide 26 Anion Gap 11 BUN 14 Creatinine 0.59 Est GFR ( Amer) > 60 Est GFR (Non-Af Amer) > 60 Glucose 163 H Calcium 8.6 Total Bilirubin 1.1 AST 33 ALT 18 Alkaline Phosphatase 152 H Total Protein 6.3 Albumin 3.1 L Urine Color YELLOW Urine Appearance CLEAR Urine pH 6.0 Ur Specific [place] 1.020 Urine Protein 30 H Urine Glucose (UA) NEGATIVE Urine Ketones NEGATIVE Urine Blood NEGATIVE Urine Nitrite NEGATIVE Ur Leukocyte Esterase NEGATIVE Urine WBC (Auto) 1 Urine RBC (Auto) 0 Impressions: Knee X-Ray 01/31/18 18:00 IMPRESSION: Status post total bilateral knee arthroplasties with no radiographic evidence for acute fracture. Diffuse soft tissue swelling at the right knee. Pelvis X-Ray 01/31/18 18:00 IMPRESSION: Osteopenia. Acute, impacted fracture of the right femoral neck. Elbow X-Ray 01/31/18 19:55 IMPRESSION: No radiographic evidence for acute fracture of the right elbow. Chest X-Ray 01/31/18 21:37 IMPRESSION: No acute disease. Assessment & Plan - Diagnosis (1) Closed right hip fracture Qualifiers: Encounter type: initial encounter Qualified Code(s): S72.001A - Fracture of unspecified part of neck of right femur, initial encounter for closed fracture Is this a current diagnosis for this admission?: Yes Plan: Admit to hospital. Orthopedic surgeon consultation with Dr Ian Medrano requested. She will need post op SNF physical rehabilitation due to her advance age and living situation. (2) Chronic atrial fibrillation Is this a current diagnosis for this admission?: Yes Plan: We will hold Xarelto in view of pending surgical intervention. Obtain coagulation study to ensure status before surgery in view of possible drug-drug intervention that may affect coagulation. (3) Hypertension Qualifiers: Hypertension type: essential hypertension Qualified Code(s): I10 - Essential (primary) hypertension Is this a current diagnosis for this admission?: Yes Plan: Maintain on preadmission medication management. Monitor his renal indices. (4) Hypothyroidism Qualifiers: Hypothyroidism type: acquired Qualified Code(s): E03.9 - Hypothyroidism, unspecified Is this a current diagnosis for this admission?: Yes Plan: Continue preadmission medication management. (5) Osteoarthritis involving multiple 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 of body Is this a current diagnosis for this admission?: Yes Plan: Continue pain management and engage physical therapy post op. Patient will need physical rehabilitation post op at SNF due to advance age and her living situation. (6) Vitamin B 12 deficiency Is this a current diagnosis for this admission?: Yes Plan: Maintain on preadmission medication management. - Time Time Spent: 50 to 70 Minutes Medications reviewed and adjusted accordingly: Yes Anticipated discharge: SNF - for short term rehabilitation Within: Other - Inpatient Certification Based on my medical assessment, after consideration of the patient's comorbidities, presenting symptoms, or acuity I expect that the services needed warrant INPATIENT care.: Yes I certify that my determination is in accordance with my understanding of Medicare's requirements for reasonable and necessary INPATIENT services [42 CFR 412.3e].: Yes Medical Necessity: Need Close Monitoring Due to Risk of Patient Decompensation, Need For IV Fluids, Need For Continuous Telemetry Monitoring, Need for Pain Control, Need for Surgery, Risk of Diagnosis Which Will Require Inpatient Eval/ Care/Monitoring Post Hospital Care: D/C or Transfer Summary - Plan Summary Plan Summary: See admitting attending physician orders as per above outlined care plan.
[2018-02-02] MEDS: RINGERS SOLUTION,LACTATED 1,000 ML IV PRN ×3 (00:55→22:56)
[2018-02-02] MEDS: LEVOTHYROXINE SODIUM 0.088 MG TABLET PO SCH (05:43)
[2018-02-02] MEDS: LANSOPRAZOLE 30 MG TAB.RAP.DR PO SCH (05:43)
[2018-02-02 06:26] LABS: ABSOLUTE BASOPHILS # (AUTO) 0.2 10^3/uL (0.0-0.2); ABSOLUTE EOSINOPHILS # (AUTO) 0.5 10^3/uL (0.0-0.6); ABSOLUTE LYMPHOCYTES (AUTO) 1.2 10^3/uL (0.5-4.7); ABSOLUTE NEUT (AUTO) 11.3 10^3/uL (1.7-8.2); BASOPHILS % (AUTO) 1.2 % (0-2); EOSINOPHILS % (AUTO) 3.7 % (0-6); HEMATOCRIT 30.7 % (36.0-47.0); HEMOGLOBIN 9.7 g/dL (12.0-15.5); LYMPHOCYTES % (AUTO) 8.6 % (13-45); MEAN CORPUSCULAR HEMOGLOBIN 26.5 pg (27.0-33.4); MEAN CORPUSCULAR HGB CONC 31.7 g/dL (32.0-36.0); MEAN CORPUSCULAR VOLUME 83 fl (80-97); MONOCYTES % (AUTO) 6.8 % (3-13); PLATELET COUNT 443 10^3/uL (150-450); RED BLOOD COUNT 3.68 10^6/uL (3.72-5.28); RED CELL DISTRIBUTION WIDTH 18.6 % (11.5-14.0); SEGMENTED NEUTROPHILS % (AUTO) 79.7 % (42-78); TOTAL CELLS COUNTED % (AUTO) 100 %; WHITE BLOOD COUNT 14.2 10^3/uL (4.0-10.5)
[2018-02-02 06:32] LABS: PROTHROMBIN TIME 16.8 SEC (11.4-15.4)
[2018-02-02 06:33] LABS: PARTIAL THROMBOPLASTIN TIME 42.3 SEC (23.5-35.8)
[2018-02-02 06:54] LABS: ALANINE AMINOTRANSFERASE 10 U/L (9-52); ALBUMIN 2.5 g/dL (3.5-5.0); ALKALINE PHOSPHATASE 122 U/L (38-126); ANION GAP 7 (5-19); ASPARTATE AMINO TRANSFERASE 17 U/L (14-36); BILIRUBIN,DIRECT 0.3 mg/dL (0.0-0.4); BILIRUBIN,TOTAL 0.6 mg/dL (0.2-1.3); BLOOD UREA NITROGEN 8 mg/dL (7-20); CARBON DIOXIDE 27 mmol/L (22-30); CHLORIDE 101 mmol/L (98-107); GLUCOSE 131 mg/dL (75-110); POTASSIUM 4.1 mmol/L (3.6-5.0); SODIUM 134.9 mmol/L (137-145); TOTAL PROTEIN 5.1 g/dL (6.3-8.2)
--- NOTE | 2018-02-02 07:16 | PDOC PROGRESS REPORT ---
Subjective Progress Note for:: 02/02/18 Reason For Visit: CLOSED FRACTURE OF RIGHT HIP 87-year-old white female with a right femoral neck fracture who was initially scheduled for surgical intervention yesterday but this was delayed because of an apparent coagulopathy. Patient with minimal complaints this morning. Physical Exam Vital Signs: Temp Pulse Resp BP Pulse Ox 36.8 C 88 20 150/60 H 95 02/02/18 03:27 02/02/18 03:27 02/02/18 03:27 02/02/18 03:27 02/02/18 03:27 Intake & Output 02/01/18 02/02/18 02/03/18 06:59 06:59 06:59 Intake Total 0 2597 Output Total 1050 1425 Balance -1050 1172 Weight 101.9 kg 106.6 kg General appearance: PRESENT: no acute distress, mild distress Head exam: PRESENT: normocephalic Respiratory exam: PRESENT: unlabored Cardiovascular exam: PRESENT: RRR Pulses: PRESENT: +1 pedal pulses bilateral Vascular exam: PRESENT: normal capillary refill Neurological exam: PRESENT: alert, awake, oriented to person, oriented to place , oriented to time, oriented to situation. ABSENT: motor sensory deficit Psychiatric exam: PRESENT: appropriate affect, normal mood. ABSENT: homicidal ideation, suicidal ideation Skin exam: PRESENT: dry, intact, warm. ABSENT: cyanosis, rash Results Laboratory Results: 02/02/18 05:31 02/02/18 05:31 02/02/18 02/02/18 05:31 05:31 WBC 14.2 H RBC 3.68 L Hgb 9.7 L Hct 30.7 L MCV 83 MCH 26.5 L MCHC 31.7 L RDW 18.6 H Plt Count 443 Seg Neutrophils % 79.7 H Lymphocytes % 8.6 L Monocytes % 6.8 Eosinophils % 3.7 Basophils % 1.2 Absolute Neutrophils 11.3 H Absolute Lymphocytes 1.2 Absolute Monocytes 1.0 Absolute Eosinophils 0.5 Absolute Basophils 0.2 Sodium 134.9 L Potassium 4.1 Chloride 101 Carbon Dioxide 27 Anion Gap 7 BUN 8 Creatinine 0.61 Est GFR ( Amer) > 60 Est GFR (Non-Af Amer) > 60 Glucose 131 H Calcium 8.0 L Total Bilirubin 0.6 AST 17 ALT 10 Alkaline Phosphatase 122 Total Protein 5.1 L Albumin 2.5 L Impressions: Knee X-Ray 01/31/18 18:00 IMPRESSION: Status post total bilateral knee arthroplasties with no radiographic evidence for acute fracture. Diffuse soft tissue swelling at the right knee. Pelvis X-Ray 01/31/18 18:00 IMPRESSION: Osteopenia. Acute, impacted fracture of the right femoral neck. Elbow X-Ray 01/31/18 19:55 IMPRESSION: No radiographic evidence for acute fracture of the right elbow. Chest X-Ray 01/31/18 21:37 IMPRESSION: No acute disease. Status: Imported from PACS Assessment & Plan - Diagnosis (1) Closed right hip fracture Qualifiers: Encounter type: initial encounter Qualified Code(s): S72.001A - Fracture of unspecified part of neck of right femur, initial encounter for closed fracture Is this a current diagnosis for this admission?: Yes Plan: Plan will be to proceed with a right femoral hemiarthroplasty pending medical clearance and reevaluation of coagulopathy this morning. - Time Time Spent with patient: 15-24 minutes Anticipated discharge: SNF - Is ordered but Within: Other
[2018-02-02] MEDS ORDERED: TRANEXAMIC ACID INJ/PF 1,000 MG/10 ML SDV IV PRN (08:00)
[2018-02-02] MEDS ORDERED: NORMAL SALINE 250 ML IV PRN ×2 (08:22)
--- NOTE | 2018-02-02 08:22 | PDOC PROGRESS REPORT ---
Subjective Progress Note for:: 02/02/18 Subjective:: Patient reported fairly satisfactory pain control this morning. Constipation with abdominal distension reported., No abdominal pain. No nausea or vomiting. Reason For Visit: CLOSED FRACTURE OF RIGHT HIP Physical Exam Vital Signs: Temp Pulse Resp BP Pulse Ox 98.3 F 90 17 155/70 H 99 02/02/18 07:23 02/02/18 07:23 02/02/18 07:23 02/02/18 07:23 02/02/18 07:23 Intake & Output 02/01/18 02/02/18 02/03/18 06:59 06:59 06:59 Intake Total 0 2597 Output Total 1050 1425 Balance -1050 1172 Weight 101.9 kg 106.6 kg General appearance: PRESENT: no acute distress, morbidly obese Head exam: PRESENT: atraumatic, normocephalic Eye exam: PRESENT: conjunctiva pink, EOMI, PERRLA. ABSENT: scleral icterus Ear exam: PRESENT: normal external ear exam Mouth exam: PRESENT: moist Respiratory exam: PRESENT: clear to auscultation mendoza Cardiovascular exam: PRESENT: irregular rhythm, +S1, +S2. ABSENT: diastolic murmur, systolic murmur Pulses: PRESENT: +1 pedal pulses bilateral Vascular exam: PRESENT: normal capillary refill. ABSENT: pallor GI/Abdominal exam: PRESENT: distended, normal bowel sounds, soft. ABSENT: guarding, mass, organolmegaly, rebound, tenderness Extremities exam: ABSENT: pedal edema Musculoskeletal exam: PRESENT: deformity - external rotationof right leg due to closed femoral nek fracture, tenderness - right hip joint with motion due to femoral neck fracture Neurological exam: PRESENT: alert, awake, oriented to person, oriented to place , oriented to time, oriented to situation, CN II-XII grossly intact. ABSENT: motor sensory deficit Psychiatric exam: PRESENT: appropriate affect, normal mood. ABSENT: homicidal ideation, suicidal ideation Skin exam: PRESENT: dry, warm Results Laboratory Results: 02/02/18 05:31 02/02/18 05:31 02/02/18 02/02/18 05:31 05:31 WBC 14.2 H RBC 3.68 L Hgb 9.7 L Hct 30.7 L MCV 83 MCH 26.5 L MCHC 31.7 L RDW 18.6 H Plt Count 443 Seg Neutrophils % 79.7 H Lymphocytes % 8.6 L Monocytes % 6.8 Eosinophils % 3.7 Basophils % 1.2 Absolute Neutrophils 11.3 H Absolute Lymphocytes 1.2 Absolute Monocytes 1.0 Absolute Eosinophils 0.5 Absolute Basophils 0.2 Sodium 134.9 L Potassium 4.1 Chloride 101 Carbon Dioxide 27 Anion Gap 7 BUN 8 Creatinine 0.61 Est GFR ( Amer) > 60 Est GFR (Non-Af Amer) > 60 Glucose 131 H Calcium 8.0 L Total Bilirubin 0.6 AST 17 ALT 10 Alkaline Phosphatase 122 Total Protein 5.1 L Albumin 2.5 L Impressions: Knee X-Ray 01/31/18 18:00 IMPRESSION: Status post total bilateral knee arthroplasties with no radiographic evidence for acute fracture. Diffuse soft tissue swelling at the right knee. Pelvis X-Ray 01/31/18 18:00 IMPRESSION: Osteopenia. Acute, impacted fracture of the right femoral neck. Elbow X-Ray 01/31/18 19:55 IMPRESSION: No radiographic evidence for acute fracture of the right elbow. Chest X-Ray 01/31/18 21:37 IMPRESSION: No acute disease. Assessment & Plan - Diagnosis (1) Closed right hip fracture Qualifiers: Encounter type: initial encounter Qualified Code(s): S72.001A - Fracture of unspecified part of neck of right femur, initial encounter for closed fracture Is this a current diagnosis for this admission?: Yes Plan: Her INR is in good range but PT/PTT remain slightly elevated. She is schedule for Tranexamic acid infusion prior to surgery today. Anesthesia team are not comfortable with PT/PTT range due to proposed spinal approach and elevated PTT. I will transfuse 2 units FFP today and repeat coagulation study in AM. (2) Chronic atrial fibrillation Is this a current diagnosis for this admission?: Yes (3) Hypertension Qualifiers: Hypertension type: essential hypertension Qualified Code(s): I10 - Essential (primary) hypertension Is this a current diagnosis for this admission?: Yes (4) Hypothyroidism Qualifiers: Hypothyroidism type: acquired Qualified Code(s): E03.9 - Hypothyroidism, unspecified Is this a current diagnosis for this admission?: Yes (5) Osteoarthritis involving multiple 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 of body Is this a current diagnosis for this admission?: Yes (6) Vitamin B 12 deficiency Is this a current diagnosis for this admission?: Yes - Time Time Spent with patient: 25-34 minutes Medications reviewed and adjusted accordingly: Yes Anticipated discharge: SNF Within: Other - Inpatient Certification Based on my medical assessment, after consideration of the patient's comorbidities, presenting symptoms, or acuity I expect that the services needed warrant INPATIENT care.: Yes I certify that my determination is in accordance with my understanding of Medicare's requirements for reasonable and necessary INPATIENT services [42 CFR 412.3e].: Yes Medical Necessity: Need Close Monitoring Due to Risk of Patient Decompensation, Need For IV Fluids, Need For Continuous Telemetry Monitoring, Need for Pain Control, Need for Surgery, Risk of Complication if Not Cared For in Hospital Post Hospital Care: D/C or Transfer Summary - Plan Summary Plan Summary: Transfuse 2 units of FFP today. Continue all other current medication management. Possible operative time tomorrow. keep NPO after mid night. Obtain KUB abdomen. Administer Colace 200 mg po daily. Dulcolax suppository 10 mg x 1 dose.
[2018-02-02] MEDS ORDERED: BISACODYL 10 MG SUPP.RECT PR ONE (09:00)
[2018-02-02] MEDS: DOCUSATE SODIUM 100 MG CAPSULE PO SCH (09:24)
[2018-02-02] MEDS: CALCIUM CARBONATE 500 MG TABLET PO SCH (09:24)
[2018-02-02] MEDS: FUROSEMIDE 40 MG TABLET PO SCH (09:25)
[2018-02-02] MEDS: AMLODIPINE BESYLATE 5 MG TABLET PO SCH (09:25)
[2018-02-02] MEDS: POTASSIUM CHLORIDE 10 MEQ CAPSULE.ER PO SCH (09:25)
[2018-02-02] MEDS ORDERED: FOLIC ACID PO SCH (10:00)
[2018-02-02] MEDS ORDERED: MULTIVITAMIN PO SCH (10:00)
[2018-02-02] MEDS ORDERED: (PENDING PHARMACY ID) (Calcium Carbonate [Calcium] 600 MG) PO SCH (10:00)
[2018-02-02] MEDS ORDERED: [UNRECOGNIZED DRUG - OTHER] PO SCH (10:00)
[2018-02-02] MEDS ORDERED: BIOTIN PO SCH (10:00)
[2018-02-02] MEDS: MORPHINE SULFATE 10 MG/ML INJ IV PRN ×2 (10:25→15:09)
[2018-02-03] MEDS: MORPHINE SULFATE 10 MG/ML INJ IV PRN ×2 (01:13→08:27)
[2018-02-03] MEDS: LEVOTHYROXINE SODIUM 0.088 MG TABLET PO SCH (05:56)
[2018-02-03] MEDS: LANSOPRAZOLE 30 MG TAB.RAP.DR PO SCH (05:56)
[2018-02-03] MEDS: RINGERS SOLUTION,LACTATED 1,000 ML IV PRN (05:59)
[2018-02-03 06:49] LABS: INTERNATIONAL RATION (INR) 1.15; PROTHROMBIN TIME 15.3 SEC (11.4-15.4)
[2018-02-03 06:56] LABS: HEMATOCRIT 30.4 % (36.0-47.0); HEMOGLOBIN 9.8 g/dL (12.0-15.5); MEAN CORPUSCULAR HEMOGLOBIN 26.9 pg (27.0-33.4); MEAN CORPUSCULAR HGB CONC 32.3 g/dL (32.0-36.0); MEAN CORPUSCULAR VOLUME 83 fl (80-97); PLATELET COUNT 436 10^3/uL (150-450); RED BLOOD COUNT 3.66 10^6/uL (3.72-5.28); RED CELL DISTRIBUTION WIDTH 17.9 % (11.5-14.0); WHITE BLOOD COUNT 12.9 10^3/uL (4.0-10.5)
[2018-02-03 07:18] LABS: ALANINE AMINOTRANSFERASE 14 U/L (9-52); ALBUMIN 2.7 g/dL (3.5-5.0); ALKALINE PHOSPHATASE 114 U/L (38-126); ANION GAP 10 (5-19); ASPARTATE AMINO TRANSFERASE 21 U/L (14-36); BILIRUBIN,DIRECT 0.5 mg/dL (0.0-0.4); BILIRUBIN,TOTAL 0.9 mg/dL (0.2-1.3); BLOOD UREA NITROGEN 8 mg/dL (7-20); CALCIUM 8.2 mg/dL (8.4-10.2); CARBON DIOXIDE 27 mmol/L (22-30); CHLORIDE 98 mmol/L (98-107); GLUCOSE 133 mg/dL (75-110); POTASSIUM 4.5 mmol/L (3.6-5.0); SODIUM 134.5 mmol/L (137-145); TOTAL PROTEIN 5.5 g/dL (6.3-8.2)
[2018-02-03] MEDS: ONDANSETRON HCL INJ/PF 4 MG/2 ML SDV IV PRN (07:33)
[2018-02-03 07:58] LABS: ABSOLUTE LYMPHOCYTES# (MANUAL) 1.4 10^3/uL (0.5-4.7); ABSOLUTE MONOCYTES # (MANUAL) 1.5 10^3/uL (0.1-1.4); ABSOLUTE NEUTROPHILS# (MANUAL) 9.7 10^3/uL (1.7-8.2); BASOPHILS % (MANUAL) 0 % (0-2); EOSINOPHILS % (MANUAL) 2 % (0-6); LYMPHOCYTES % (MANUAL) 11 % (13-45); MONOCYTES % (MANUAL) 12 % (3-13); POLYCHROMASIA SLIGHT; SEGMENTED NEUTROPHILS % (MAN) 75 % (42-78); TOTAL CELLS COUNTED 100
[2018-02-03 07:59] LABS: ANISOCYTOSIS 1+; HYPOCHROMASIA SLIGHT; PLATELET COMMENT ADEQUATE
[2018-02-03] MEDS: CALCIUM CARBONATE 500 MG TABLET PO SCH (08:30)
[2018-02-03] MEDS: FUROSEMIDE 40 MG TABLET PO SCH (10:33)
[2018-02-03] MEDS: AMLODIPINE BESYLATE 5 MG TABLET PO SCH (10:33)
[2018-02-03] MEDS: POTASSIUM CHLORIDE 10 MEQ CAPSULE.ER PO SCH (10:33)
[2018-02-03] MEDS: DOCUSATE SODIUM 100 MG CAPSULE PO SCH (10:33)
[2018-02-03] MEDS ORDERED: THROMBIN (BOVINE) TOPICAL 20000 UNIT VIAL ONE (11:08)
[2018-02-03] MEDS ORDERED: BUPIVACAINE HCL 0.25% /EPINEPHRINE INJ/PF 30 ML SDV ONE (11:09)
[2018-02-03] MEDS ORDERED: LIDOCAINE 2% INJ-PF (20 MG/ML) 10 ML AMPUL ONE (12:20)
[2018-02-03] MEDS ORDERED: FENTANYL CITRATE INJ/PF 250 MCG/5 ML AMPULE ONE (12:21)
[2018-02-03] MEDS ORDERED: PROPOFOL INJ 200 MG/20 ML VIAL IV ONE (12:21)
[2018-02-03] MEDS ORDERED: MIDAZOLAM 2 MG/2 ML INJ ONE (12:21)
[2018-02-03] MEDS ORDERED: ONDANSETRON HCL INJ/PF 4 MG/2 ML SDV ONE (12:21)
[2018-02-03] MEDS ORDERED: DEXAMETHASONE SOD PHOSPHATE INJ 4 MG/1 ML VIAL ONE (12:21)
[2018-02-03] MEDS ORDERED: VANCOMYCIN HCL INJ 500 MG VIAL ONE (12:33)
[2018-02-03] MEDS ORDERED: TRANEXAMIC ACID INJ/PF 1,000 MG/10 ML SDV IV ONE ×2 (12:33→16:00)
[2018-02-03] MEDS ORDERED: DIPHENHYDRAMINE HCL 50 MG/ML VIAL IV PRN ×2 (13:28→13:54)
[2018-02-03] MEDS ORDERED: PROMETHAZINE HCL INJ 25 MG/1 ML VIAL IV PRN ×2 (13:28)
[2018-02-03] MEDS ORDERED: MEPERIDINE HCL/PF INJ 25 MG/1 ML DISP.SYRIN IV PRN (13:28)
[2018-02-03] MEDS ORDERED: OXYCODONE-ACETAMINOPHEN 5-325 MG TABLET PO PRN ×2 (13:28)
[2018-02-03] MEDS ORDERED: FENTANYL CITRATE INJ/PF 100 MCG/2 ML AMPUL IV PRN ×3 (13:28)
[2018-02-03] MEDS ORDERED: ONDANSETRON HCL INJ/PF 4 MG/2 ML SDV IV PRN ×2 (13:28→13:54)
[2018-02-03] MEDS ORDERED: SUCCINYLCHOLINE CHLORIDE INJ 200 MG/10 ML VIAL ONE (13:48)
[2018-02-03] MEDS ORDERED: MAG HYDROX/AL HYDROX/SIMETH SUSP 30 ML UDCUP PO PRN (13:54)
[2018-02-03] MEDS ORDERED: ACETAMINOPHEN 325 MG TABLET PO PRN (13:54)
[2018-02-03] MEDS ORDERED: OXYCODONE HCL IR 5 MG TABLET PO PRN (13:54)
[2018-02-03] MEDS ORDERED: RINGERS SOLUTION,LACTATED 1,000 ML IV PRN (13:54)
[2018-02-03] MEDS ORDERED: ONDANSETRON 4 MG TAB.RAPDIS PO PRN (13:54)
[2018-02-03] MEDS ORDERED: MORPHINE SULFATE 10 MG/ML INJ IV PRN ×4 (13:54)
[2018-02-03] MEDS ORDERED: ZOLPIDEM TARTRATE 5 MG TABLET PO PRN (13:54)
--- NOTE | 2018-02-03 13:54 | Operative Report ---
Operative Report DATE OF SURGERY: 02/03/18 PREOPERATIVE DIAGNOSIS: Right femoral neck fracture OPERATION: Right proximal femoral hemiarthroplasty SURGEON: FIFI LAURA ANESTHESIA: GA TISSUE REMOVED OR ALTERED: Femoral head to pathology ESTIMATED BLOOD LOSS: 100 PROCEDURE: With the patient in a left lateral decubitus position the right lower extremity hindquarter prepped and draped in a sterile fashion. A curvilinear incision made over the greater trochanter a posterior approach the hip was taken. The femur was retracted anteriorly and underlying femoral neck and head are retrieved using a corkscrew. The femoral head was measured and noted to be 49 millimeters. Attention is now turned to the femur. Access is gained to the femoral canal using a box osteotome to the piriformis fossa. The femur is then prepared using a series of Durga Accolade 2 tapered broaches until a number 5 broach is seated. A trial reduction was now performed using a 49 head and is for neck. Leg length was restored and there is excellent anterior posterior stability. A decision was made to proceed with this construct. All trial implants were removed. The final number 5 femoral stem is impacted into the canal. The -4 neck is impacted onto the trunnion. Final unipolar head 89 millimeters is impacted onto the neck. The hip was reduced. The wound is copiously irrigated with pulsed lavage. A subsequent closed in layers using Vicryl and june. A sterile dressing is applied. The patient was returned to the recovery room in satisfactory condition.
--- NOTE | 2018-02-03 17:16 | RADIOLOGY REPORT (SQ) ---
EXAM DESCRIPTION: Pelvis AP COMPLETED DATE/TIME: 02/03/2018 REASON FOR STUDY: Postop. Pain. Inability to ambulate. COMPARISON: None. EXAM PARAMETERS: NUMBER OF VIEWS: One view TECHNIQUE: Digital radiographic images of the pelvis post-procedure. LIMITATIONS: None. FINDINGS: Postoperative images of the pelvis and proximal femurs shows a right hip arthroplasty. Th e femoral head component appears somewhat eccentrically located in the acetabulum. IMPRESSION: The femoral head component of the hip prosthesis appears to be eccentrically located in the acetabulum. TECHNICAL DOCUMENTATION: JOB ID: [id number] [employer]- All Rights Reserved Reading location - IP/workstation name: [email or web address]
[2018-02-03] MEDS: SENNOSIDES/DOCUSATE 8.6-50 MG 1 EACH TABLET PO SCH (18:17)
[2018-02-03] MEDS: IBUPROFEN 800 MG in NORMAL SALINE 250 ML IV SCH (18:17)
--- NOTE | 2018-02-03 19:17 | PDOC PROGRESS REPORT ---
Subjective Progress Note for:: 02/03/18 Subjective:: s/p right proximal femur hemiarthroplasty surgery. Currently denied any pain. No difficulty with her breathing. No reported fever or chills. Tolerating oral feeding. Reason For Visit: RIGHT FEMORAL NECK FRACTURE Physical Exam Vital Signs: Temp Pulse Resp BP Pulse Ox 97.8 F 80 16 160/62 H 94 02/03/18 15:12 02/03/18 15:12 02/03/18 15:12 02/03/18 15:12 02/03/18 15:12 Intake & Output 02/02/18 02/03/18 02/04/18 06:59 06:59 06:59 Intake Total 2597 4379 2350 Output Total 1425 4525 1350 Balance 1172 -146 1000 Weight 106.6 kg 104 kg General appearance: PRESENT: no acute distress, well-developed, well-nourished Head exam: PRESENT: atraumatic, normocephalic Eye exam: PRESENT: conjunctiva pink, EOMI, PERRLA. ABSENT: scleral icterus Ear exam: PRESENT: normal external ear exam Mouth exam: PRESENT: moist Respiratory exam: PRESENT: clear to auscultation mendoza Cardiovascular exam: PRESENT: irregular rhythm, +S1, +S2. ABSENT: diastolic murmur, systolic murmur Vascular exam: PRESENT: normal capillary refill. ABSENT: pallor GI/Abdominal exam: PRESENT: normal bowel sounds, soft. ABSENT: distended, guarding, mass, organolmegaly, rebound, tenderness Musculoskeletal exam: PRESENT: deformity - related to her multiple joints involvement with arthritis, other - right hip surgery site dressing is satisfactory. Neurological exam: PRESENT: alert, awake, oriented to person, oriented to place, oriented to time, oriented to situation, CN II-XII grossly intact. ABSENT: motor sensory deficit Psychiatric exam: PRESENT: appropriate affect, normal mood. ABSENT: homicidal ideation, suicidal ideation Skin exam: PRESENT: dry, warm Results Laboratory Results: 02/03/18 05:19 02/03/18 05:19 02/03/18 02/03/18 05:19 05:19 WBC 12.9 H RBC 3.66 L Hgb 9.8 L Hct 30.4 L MCV 83 MCH 26.9 L MCHC 32.3 RDW 17.9 H Plt Count 436 Seg Neutrophils % Not Reportable Lymphocytes % Not Reportable Monocytes % Not Reportable Eosinophils % Not Reportable Basophils % Not Reportable Absolute Neutrophils Not Reportable Absolute Lymphocytes Not Reportable Absolute Monocytes Not Reportable Absolute Eosinophils Not Reportable Absolute Basophils Not Reportable Sodium 134.5 L Potassium 4.5 Chloride 98 Carbon Dioxide 27 Anion Gap 10 BUN 8 Creatinine 0.54 Est GFR ( Amer) > 60 Est GFR (Non-Af Amer) > 60 Glucose 133 H Calcium 8.2 L Total Bilirubin 0.9 AST 21 ALT 14 Alkaline Phosphatase 114 Total Protein 5.5 L Albumin 2.7 L Impressions: Knee X-Ray 01/31/18 18:00 IMPRESSION: Status post total bilateral knee arthroplasties with no radiographic evidence for acute fracture. Diffuse soft tissue swelling at the right knee. Elbow X-Ray 01/31/18 19:55 IMPRESSION: No radiographic evidence for acute fracture of the right elbow. Chest X-Ray 01/31/18 21:37 IMPRESSION: No acute disease. Pelvis X-Ray 02/03/18 13:56 IMPRESSION: The femoral head component of the hip prosthesis appears to be eccentrically located in the acetabulum. Assessment & Plan - Diagnosis (1) Closed right hip fracture Qualifiers: Encounter type: initial encounter Qualified Code(s): S72.001A - Fracture of unspecified part of neck of right femur, initial encounter for closed fracture Is this a current diagnosis for this admission?: Yes (2) Chronic atrial fibrillation Is this a current diagnosis for this admission?: Yes (3) Hypertension Qualifiers: Hypertension type: essential hypertension Qualified Code(s): I10 - Essential (primary) hypertension Is this a current diagnosis for this admission?: Yes (4) Hypothyroidism Qualifiers: Hypothyroidism type: acquired Qualified Code(s): E03.9 - Hypothyroidism, unspecified Is this a current diagnosis for this admission?: Yes (5) Osteoarthritis involving multiple 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 of body Is this a current diagnosis for this admission?: Yes (6) Vitamin B 12 deficiency Is this a current diagnosis for this admission?: Yes - Time Time Spent with patient: 25-34 minutes Medications reviewed and adjusted accordingly: Yes Anticipated discharge: SNF Within: Other - Inpatient Certification Based on my medical assessment, after consideration of the patient's gold rbidities, presenting symptoms, or acuity I expect that the services needed warrant INPATIENT care.: Yes I certify that my determination is in accordance with my understanding of Medicare's requirements for reasonable and necessary INPATIENT services [42 CFR 412.3e].: Yes Medical Necessity: Need Close Monitoring Due to Risk of Patient Decompensation, Need For IV Fluids, Need For Continuous Telemetry Monitoring, Need for Pain Control, Need for Surgery, Risk of Complication if Not Cared For in Hospital Post Hospital Care: D/C or Transfer Summary - Plan Summary Plan Summary: Continue current medication management. Obtain CBC and BMP as AM lab. Re- evaluate start of Xarelto tomorrow.
[2018-02-03] MEDS: OXYCODONE HCL SR 10 MG TABLET PO SCH (21:54)
[2018-02-04] MEDS: IBUPROFEN 800 MG in NORMAL SALINE 250 ML IV SCH ×3 (01:49→17:20)
[2018-02-04] MEDS ORDERED: VANCOMYCIN HCL 1,000 MG in DEXTROSE 5%-WATER 250 ML IV ONE (02:00)
[2018-02-04] MEDS: LANSOPRAZOLE 30 MG TAB.RAP.DR PO SCH ×3 (05:09→06:00)
[2018-02-04] MEDS: LEVOTHYROXINE SODIUM 0.088 MG TABLET PO SCH (05:27)
[2018-02-04 05:31] LABS: HEMATOCRIT 29.4 % (36.0-47.0); HEMOGLOBIN 9.4 g/dL (12.0-15.5); MEAN CORPUSCULAR HEMOGLOBIN 26.8 pg (27.0-33.4); MEAN CORPUSCULAR VOLUME 84 fl (80-97); PLATELET COUNT 438 10^3/uL (150-450); RED BLOOD COUNT 3.53 10^6/uL (3.72-5.28); RED CELL DISTRIBUTION WIDTH 17.6 % (11.5-14.0); WHITE BLOOD COUNT 15.3 10^3/uL (4.0-10.5)
[2018-02-04 05:53] LABS: ANION GAP 8 (5-19); BLOOD UREA NITROGEN 12 mg/dL (7-20); CALCIUM 8.2 mg/dL (8.4-10.2); CARBON DIOXIDE 26 mmol/L (22-30); CHLORIDE 100 mmol/L (98-107); GLUCOSE 172 mg/dL (75-110); POTASSIUM 4.5 mmol/L (3.6-5.0); SODIUM 133.8 mmol/L (137-145)
--- NOTE | 2018-02-04 07:19 | PDOC PROGRESS REPORT ---
Subjective Progress Note for:: 02/04/18 Reason For Visit: RIGHT FEMORAL NECK FRACTURE 87-year-old white female now postop day 1 status post hemiarthroplasty for right femoral neck fracture. Patient with no complaints this morning. Caregiver at her side. Physical Exam Vital Signs: Temp Pulse Resp BP Pulse Ox 36.3 C 65 16 101/55 L 100 02/04/18 03:28 02/04/18 03:28 02/04/18 03:28 02/04/18 03:28 02/04/18 03:28 Intake & Output 02/03/18 02/04/18 02/05/18 06:59 06:59 06:59 Intake Total 4379 3122 Output Total 4525 2300 Balance -146 822 Weight 104 kg 105.3 kg General appearance: PRESENT: no acute distress Head exam: PRESENT: normocephalic Respiratory exam: PRESENT: unlabored Cardiovascular exam: PRESENT: RRR Pulses: PRESENT: +1 pedal pulses bilateral Vascular exam: PRESENT: normal capillary refill GI/Abdominal exam: PRESENT: soft Rectal exam: PRESENT: deferred Extremities exam: PRESENT: other - Right hip dressing clean dry and intact. Leg lengths equal. Distal neurovascular examination is intact. Neurological exam: PRESENT: alert, awake, oriented to person, oriented to place, oriented to time, oriented to situation. ABSENT: motor sensory deficit Psychiatric exam: PRESENT: appropriate affect, normal mood. ABSENT: homicidal ideation, suicidal ideation Skin exam: PRESENT: dry, intact, warm. ABSENT: cyanosis, rash Results Laboratory Results: 02/04/18 05:07 02/04/18 05:07 02/03/18 02/03/18 02/04/18 05:19 05:19 05:07 WBC 12.9 H 15.3 H RBC 3.66 L 3.53 L Hgb 9.8 L 9.4 L Hct 30.4 L 29.4 L MCV 83 84 MCH 26.9 L 26.8 L MCHC 32.3 32.0 RDW 17.9 H 17.6 H Plt Count 436 438 Seg Neutrophils % Not Reportable Lymphocytes % Not Reportable Monocytes % Not Reportable Eosinophils % Not Reportable Basophils % Not Reportable Absolute Neutrophils Not Reportable Absolute Lymphocytes Not Reportable Absolute Monocytes Not Reportable Absolute Eosinophils Not Reportable Absolute Basophils Not Reportable Sodium 134.5 L Potassium 4.5 Chloride 98 Carbon Dioxide 27 Anion Gap 10 BUN 8 Creatinine 0.54 Est GFR ( Amer) > 60 Est GFR (Non-Af Amer) > 60 Glucose 133 H Calcium 8.2 L Total Bilirubin 0.9 AST 21 ALT 14 Alkaline Phosphatase 114 Total Protein 5.5 L Albumin 2.7 L 02/04/18 05:07 WBC RBC Hgb Hct MCV MCH MCHC RDW Plt Count Seg Neutrophils % Lymphocytes % Monocytes % Eosinophils % Basophils % Absolute Neutrophils Absolute Lymphocytes Absolute Monocytes Absolute Eosinophils Absolute Basophils Sodium 133.8 L Potassium 4.5 Chloride 100 Carbon Dioxide 26 Anion Gap 8 BUN 12 Creatinine 0.47 L Est GFR ( Amer) > 60 Est GFR (Non-Af Amer) > 60 Glucose 172 H Calcium 8.2 L Total Bilirubin AST ALT Alkaline Phosphatase Total Protein Albumin Impressions: Knee X-Ray 01/31/18 18:00 IMPRESSION: Status post total bilateral knee arthroplasties with no radiographic evidence for acute fracture. Diffuse soft tissue swelling at the right knee. Elbow X-Ray 01/31/18 19:55 IMPRESSION: No radiographic evidence for acute fracture of the right elbow. Chest X-Ray 01/31/18 21:37 IMPRESSION: No acute disease. Pelvis X-Ray 02/03/18 13:56 IMPRESSION: The femoral head component of the hip prosthesis appears to be eccentrically located in the acetabulum. Status: Imported from PACS Assessment & Plan - Diagnosis (1) Closed right hip fracture Qualifiers: Encounter type: initial encounter Qualified Code(s): S72.001A - Fracture of unspecified part of neck of right femur, initial encounter for closed fracture Is this a current diagnosis for this admission?: Yes Plan: Patient to be mobilized with physical therapy and weightbearing as tolerated basis. Anticipate the need for [facility] facility [facility]. - Time Time Spent with patient: 15-24 minutes Anticipated discharge: SNF Within: when bed available
[2018-02-04] MEDS: DOCUSATE SODIUM 100 MG CAPSULE PO SCH (09:15)
[2018-02-04] MEDS: OXYCODONE HCL SR 10 MG TABLET PO SCH ×2 (09:15→21:04)
[2018-02-04] MEDS: AMLODIPINE BESYLATE 5 MG TABLET PO SCH (09:15)
[2018-02-04] MEDS: CALCIUM CARBONATE 500 MG TABLET PO SCH (09:15)
[2018-02-04] MEDS: FUROSEMIDE 40 MG TABLET PO SCH (09:15)
[2018-02-04] MEDS: POTASSIUM CHLORIDE 10 MEQ CAPSULE.ER PO SCH (09:15)
[2018-02-04] MEDS: PRENATAL VITAMIN W DHA CAPSULE PO SCH (09:16)
[2018-02-04] MEDS: SENNOSIDES/DOCUSATE 8.6-50 MG 1 EACH TABLET PO SCH ×2 (09:16→17:20)
--- NOTE | 2018-02-04 19:04 | PDOC PROGRESS REPORT ---
Subjective Progress Note for:: 02/04/18 Subjective:: Patient reported satisfactory participation in PT session today. No chest pain or difficulty with breathing. Tolerating oral feeding. Expressed which for [facility] placement for [facility] term [facility]. Reason For Visit: RIGHT FEMORAL NECK FRACTURE Physical Exam Vital Signs: Temp Pulse Resp BP Pulse Ox 97.3 F 58 L 20 120/52 L 99 02/04/18 16:21 02/04/18 16:21 02/04/18 16:21 02/04/18 16:21 02/04/18 16:21 Intake & Output 02/03/18 02/04/18 02/05/18 06:59 06:59 06:59 Intake Total 4379 3122 800 Output Total 4525 2300 1450 Balance -146 822 -650 Weight 104 kg 105.3 kg Physical Exam: General appearance: PRESENT: no acute distress, well-developed, well-nourished Head exam: PRESENT: atraumatic, normocephalic Eye exam: PRESENT: conjunctiva pink, EOMI, PERRLA. ABSENT: pallor, scleral icterus Ear exam: PRESENT: normal external ear exam Mouth exam: PRESENT: moist Respiratory exam: PRESENT: clear to auscultation mendoza Cardiovascular exam: PRESENT: irregular rhythm, +S1, +S2. ABSENT: diastolic murmur, systolic murmur GI/Abdominal exam: PRESENT: normal bowel sounds, soft. ABSENT: distended, guarding, mass, organomegaly, rebound, tenderness Musculoskeletal exam: PRESENT: deformity - related to her multiple joints involvement with arthritis Neurological exam: PRESENT: alert, awake, oriented to person, oriented to place, oriented to time, oriented to situation, CN II-XII grossly intact. ABSENT: mo tor sensory deficit Psychiatric exam: PRESENT: appropriate affect, normal mood. ABSENT: homicidal i deation, suicidal ideation Skin exam: PRESENT: dry, warm, right hip hemiarthroplasty surgical site dressing satisfactory. Results Laboratory Results: 02/04/18 05:07 02/04/18 05:07 02/04/18 02/04/18 05:07 05:07 WBC 15.3 H RBC 3.53 L Hgb 9.4 L Hct 29.4 L MCV 84 MCH 26.8 L MCHC 32.0 RDW 17.6 H Plt Count 438 Sodium 133.8 L Potassium 4.5 Chloride 100 Carbon Dioxide 26 Anion Gap 8 BUN 12 Creatinine 0.47 L Est GFR ( Amer) > 60 Est GFR (Non-Af Amer) > 60 Glucose 172 H Calcium 8.2 L Impressions: Knee X-Ray 01/31/18 18:00 IMPRESSION: Status post total bilateral knee arthroplasties with no radiographic evidence for acute fracture. Diffuse soft tissue swelling at the right knee. Elbow X-Ray 01/31/18 19:55 IMPRESSION: No radiographic evidence for acute fracture of the right elbow. Chest X-Ray 01/31/18 21:37 IMPRESSION: No acute disease. Pelvis X-Ray 02/03/18 13:56 IMPRESSION: The femoral head component of the hip prosthesis appears to be eccentrically located in the acetabulum. Assessment & Plan - Diagnosis (1) Closed right hip fracture Qualifiers: Encounter type: initial encounter Qualified Code(s): S72.001A - Fracture of unspecified part of neck of right femur, initial encounter for closed fracture Is this a current diagnosis for this admission?: Yes (2) Chronic atrial fibrillation Is this a current diagnosis for this admission?: Yes (3) Hypertension Qualifiers: Hypertension type: essential hypertension Qualified Code(s): I10 - Essential (primary) hypertension Is this a current diagnosis for this admission?: Yes (4) Hypothyroidism Qualifiers: Hypothyroidism type: acquired Qualified Code(s): E03.9 - Hypothyroidism, unspecified Is this a current diagnosis for this admission?: Yes (5) Osteoarthritis involving multiple 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 of body Is this a current diagnosis for this admission?: Yes (6) Vitamin B 12 deficiency Is this a current diagnosis for this admission?: Yes - Time Time Spent with patient: 25-34 minutes Medications reviewed and adjusted accordingly: Yes Anticipated discharge: SNF Within: Other - Inpatient Certification Based on my medical assessment, after consideration of the patient's comorbidities, presenting symptoms, or acuity I expect that the services needed warrant INPATIENT care.: Yes I certify that my determination is in accordance with my understanding of Medicare's requirements for reasonable and necessary INPATIENT services [42 CFR 412.3e].: Yes Medical Necessity: Need Close Monitoring Due to Risk of Patient Decompensation, Need For IV Fluids, Need For Continuous Telemetry Monitoring, Need for Pain Control, Need for IV Antibiotics, Risk of Complication if Not Cared For in [facility] Post Hospital Care: D/C or Transfer Summary - Plan Summary Plan Summary: Continue current medication management. I will restart her on Xarelto 15 mg po qhs from 02/05/18 22:00hr due to ongoing use of IV Ibuprofen and significant drug-drug interaction and increase risk of bleeding. Follow up with [facility] regarding efforts at disposition. Surgical team input appreciated.
[2018-02-04] MEDS ORDERED: RIVAROXABAN 15 MG TABLET PO SCH (22:00)
[2018-02-05] MEDS: IBUPROFEN 800 MG in NORMAL SALINE 250 ML IV SCH ×2 (02:19→10:48)
[2018-02-05 05:00] LABS: HEMATOCRIT 28.4 % (36.0-47.0); HEMOGLOBIN 9.1 g/dL (12.0-15.5); MEAN CORPUSCULAR HEMOGLOBIN 26.9 pg (27.0-33.4); MEAN CORPUSCULAR HGB CONC 32.2 g/dL (32.0-36.0); MEAN CORPUSCULAR VOLUME 84 fl (80-97); PLATELET COUNT 477 10^3/uL (150-450); RED CELL DISTRIBUTION WIDTH 17.7 % (11.5-14.0); WHITE BLOOD COUNT 14.6 10^3/uL (4.0-10.5)
[2018-02-05] MEDS: LANSOPRAZOLE 30 MG TAB.RAP.DR PO SCH ×2 (05:16→05:18)
[2018-02-05] MEDS: LEVOTHYROXINE SODIUM 0.088 MG TABLET PO SCH (05:17)
--- NOTE | 2018-02-05 06:15 | PDOC PROGRESS REPORT ---
Subjective Progress Note for:: 02/05/18 Reason For Visit: RIGHT FEMORAL NECK FRACTURE 87-year-old white female postop day 2 status post hemiarthroplasty for femoral neck fracture. Patient making some progress with physical therapy. Patient having minimal discomfort. Physical Exam Vital Signs: Temp Pulse Resp BP Pulse Ox 36.5 C 90 16 115/75 97 02/05/18 03:55 02/05/18 03:55 02/05/18 03:55 02/05/18 03:55 02/05/18 03:55 Intake & Output 02/03/18 02/04/18 02/05/18 06:59 06:59 06:59 Intake Total 4379 3122 1050 Output Total 4525 2300 1450 Balance -146 822 -400 Weight 104 kg 105.3 kg General appearance: PRESENT: no acute distress, mild distress Head exam: PRESENT: normocephalic Respiratory exam: PRESENT: rhonchi, unlabored Cardiovascular exam: PRESENT: RRR Pulses: PRESENT: +1 pedal pulses bilateral GI/Abdominal exam: PRESENT: soft Rectal exam: PRESENT: deferred Extremities exam: PRESENT: other - Right lower extremity incision is healing uneventfully. There is no drainage. Dressing remains dry. Leg lengths are equal. Distal neurovascular examination is intact. Neurological exam: PRESENT: alert, awake, oriented to person, oriented to place, oriented to time, oriented to situation. ABSENT: motor sensory deficit Skin exam: PRESENT: dry, intact, warm. ABSENT: cyanosis, rash Results Laboratory Results: 02/05/18 04:22 02/04/18 05:07 02/05/18 04:22 WBC 14.6 H RBC 3.40 L Hgb 9.1 L Hct 28.4 L MCV 84 MCH 26.9 L MCHC 32.2 RDW 17.7 H Plt Count 477 H Impressions: Knee X-Ray 01/31/18 18:00 IMPRESSION: Status post total bilateral knee arthroplasties with no radiographic evidence for acute fracture. Diffuse soft tissue swelling at the right knee. Elbow X-Ray 01/31/18 19:55 IMPRESSION: No radiographic evidence for acute fracture of the right elbow. Chest X-Ray 01/31/18 21:37 IMPRESSION: No acute disease. Pelvis X-Ray 02/03/18 13:56 IMPRESSION: The femoral head component of the hip prosthesis appears to be eccentrically located in the acetabulum. Status: Imported from PACS Assessment & Plan - Diagnosis (1) Closed right hip fracture Qualifiers: Encounter type: initial encounter Qualified Code(s): S72.001A - Fracture of unspecified part of neck of right femur, initial encounter for closed fracture Is this a current diagnosis for this admission?: Yes Plan: Patient to be mobilized with physical therapy. Anticipate the need for half-way facility placement.
[2018-02-05] MEDS: PRENATAL VITAMIN W DHA CAPSULE PO SCH (09:50)
[2018-02-05] MEDS: SENNOSIDES/DOCUSATE 8.6-50 MG 1 EACH TABLET PO SCH (09:51)
[2018-02-05] MEDS: POTASSIUM CHLORIDE 10 MEQ CAPSULE.ER PO SCH (09:51)
[2018-02-05] MEDS: DOCUSATE SODIUM 100 MG CAPSULE PO SCH (09:51)
[2018-02-05] MEDS: AMLODIPINE BESYLATE 5 MG TABLET PO SCH (09:51)
[2018-02-05] MEDS: FUROSEMIDE 40 MG TABLET PO SCH (09:51)
[2018-02-05] MEDS: CALCIUM CARBONATE 500 MG TABLET PO SCH (09:52)
[2018-02-05] MEDS: OXYCODONE HCL SR 10 MG TABLET PO SCH (09:52)
--- NOTE | 2018-02-05 15:03 | PDOC TRANSFER SUMMARY ---
General - Admit/Disc Date/PCP Admission Date/Primary Care Provider: 01/31/18 21:46 JUSTICEMARILYN HARRIS Discharge Date: 02/05/18 - Discharge Diagnosis (1) Closed right hip fracture Is this a current diagnosis for this admission?: Yes (2) Chronic atrial fibrillation Is this a current diagnosis for this admission?: Yes (3) Hypertension Is this a current diagnosis for this admission?: Yes (4) Hypothyroidism Is this a current diagnosis for this admission?: Yes (5) Osteoarthritis involving multiple 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 of body Is this a current diagnosis for this admission?: Yes (6) Vitamin B 12 deficiency Is this a current diagnosis for this admission?: Yes - Additional Information Resuscitation Status: Full Code Discharge Diet: Cardiac, Diabetic Discharge Activity: Activity As Tolerated, Slowly Increase Activity, Supervised Activity Prescriptions: Oxycodone HCl [Oxy-Ir 5 mg Tablet] 5 mg PO Q6HP PRN #30 tablet PRN Reason: Sennosides/Docusate 8.6-50 mg [Senna Plus Tablet] 1 each PO BID #120 tablet Home Medications: Furosemide [Lasix 40 mg Tablet] 40 mg PO QAM 03/17/11 Potassium Chloride [Klor-Con 10 Meq Capsule ER] 20 meq PO DAILY 03/17/11 Calcium Carbonate [Calcium] 600 mg PO DAILY 04/25/13 Fluticasone Propionate [Flonase Nasal [place] 50 Mcg/[place] 16 gm] 2 sprays NASL DAILY PRN 07/13/14 Tramadol HCl/Acetaminophen [Tramadol-Acetaminophn 37.5-325] 1 each PO TIDP PRN 07/13/14 Amlodipine Besylate [Norvasc 5 mg Tablet] 5 mg PO DAILY 01/31/18 Cetirizine HCl [Zyrtec 5 mg Tablet] 5 mg PO DAILY 01/31/18 Levothyroxine Sodium [Synthroid 0.088 mg Tablet] 0.088 mg PO Q6AM 01/31/18 Bifidobacterium Infantis [Align 4 mg Capsule] 1 cap PO DAILY 02/01/18 Cyanocobalamin (Vitamin B-12) [Vitamin B-12 Inj 1000 Mcg/1 ml Vial] 1,000 mcg IM .MONTHLY 02/01/18 Duloxetine HCl [Cymbalta 20 mg Capsule.] 20 mg PO QHS 02/01/18 Krill/Om-3/Dha/Epa/Phospho/Ast [Megared [place]-3 Krill Oil Sfgl] 1 each PO DAILY 02/01/18 Multivitamin/Folic Acid/Biotin [Hair, Skin and Nails Tablet] 3 each PO DAILY 02/01/18 Rivaroxaban [Xarelto 15 mg Tablet] 15 mg PO QHS 02/01/18 Rosuvastatin Calcium [Crestor 10 mg Tablet] 10 mg PO QHS 02/01/18 Oxycodone HCl [Oxy-Ir 5 mg Tablet] 5 mg PO Q6HP PRN #30 tablet 02/05/18 Sennosides/Docusate 8.6-50 mg [Senna Plus Tablet] 1 each PO BID #120 tablet 02/05/18 History of Present Illness Admission Date/PCP: 01/31/18 21:46 JUSTICE HARRIS Patient complains of: s/p Fall with right hip joint pain History of Present Illness: WILLIAM FISH is a 87 year old female known to my practice who presented to the ED after a day fall history. She was getting out of a car when she lost her balance and fell on her knees, right elbow and right hip joints. She was able to ambulate on the day of the incident but woke up on the next day with inability to ambulate and right hip joint pain. Her initial evaluation in the ED with pelvic X ray revealed right impacted femoral neck fracture. She denied any pre ceding chest pain, palpitation, or loss of consciousness. She has history of chronic atrial fibrillation and currently on Xarelto. Her other morbidities include hypertension, hypothyroidism, osteoarthritis, and hearing impairment. She was advised hospitalization regarding surgical intervention for her right hip fracture. Hospital Course Hospital Course: Patient was admitted to the hospital for further valuation and management for right femoral neck impacted fracture. She was taken to the operating room on 02/03/18 for right hip hemiarthroplasty surgery. Surgical intervention delay was consequence of elevated coagulation parameters and need for Xalreto therapy correction to reduce bleeding during operative intervention. She did very well post operative and continue to participate in physical therapy session. She is agreeable to SNF transfer for short term rehabilitation. She will follow up with Dr Ian Medrano, orthopedic surgeon and myself as instructed upon discharge. Physical Exam Vital Signs: Temp Pulse Resp BP Pulse Ox 97.6 F 69 16 123/53 L 96 02/05/18 12:13 02/05/18 12:13 02/05/18 12:13 02/05/18 12:13 02/05/18 12:13 Intake & Output 02/04/18 02/05/18 02/06/18 06:59 06:59 06:59 Intake Total 3122 1050 490 Output Total 2300 1450 Balance 822 -400 490 Weight 105.3 kg 106.4 kg 106.4 kg General appearance: PRESENT: no acute distress, well-developed, well-nourished Head exam: PRESENT: atraumatic, normocephalic Eye exam: PRESENT: conjunctiva pink, EOMI, PERRLA. ABSENT: pallor, scleral icterus Ear exam: PRESENT: normal external ear exam Mouth exam: PRESENT: moist Respiratory exam: PRESENT: clear to auscultation mendoza Cardiovascular exam: PRESENT: irregular rhythm, +S1, +S2. ABSENT: diastolic murmur, systolic murmur GI/Abdominal exam: PRESENT: normal bowel sounds, soft. ABSENT: distended, guarding, mass, organomegaly, rebound, tenderness Musculoskeletal exam: PRESENT: deformity - related to her multiple joints involvement with arthritis Neurological exam: PRESENT: alert, awake, oriented to person, oriented to place, oriented to time, oriented to situation, CN II-XII grossly intact. ABSENT: motor sensory deficit Psychiatric exam: PRESENT: appropriate affect, normal mood. ABSENT: homicidal ideation, suicidal ideation Skin exam: PRESENT: dry, warm, right hip hemiarthroplasty surgical site dressing satisfactory. Results Laboratory Results: 02/05/18 04:22 02/04/18 05:07 02/05/18 04:22 WBC 14.6 H RBC 3.40 L Hgb 9.1 L Hct 28.4 L MCV 84 MCH 26.9 L MCHC 32.2 RDW 17.7 H Plt Count 477 H Impressions: Knee X-Ray 01/31/18 18:00 IMPRESSION: Status post total bilateral knee arthroplasties with no radiographic evidence for acute fracture. Diffuse soft tissue swelling at the right knee. Elbow X-Ray 01/31/18 19:55 IMPRESSION: No radiographic evidence for acute fracture of the right elbow. Chest X-Ray 01/31/18 21:37 IMPRESSION: No acute disease. Pelvis X-Ray 02/03/18 13:56 IMPRESSION: The femoral head component of the hip prosthesis appears to be eccentrically located in the acetabulum. Transfer Plan - Disposition Transfer Plan: [facility] program. she will follow up with Dr henna Medrano and yself as instructed upon discharge. Qualifiers - * PATIENT BEING DISCHARGED WITH ANY OF THE FOLLOWING DIAGNOSIS: No Plan Discharge Plan: Transfer to [facility] for short term rehabilitation program.
[2018-02-05 16:46] VITALS: BP 129/51
[2018-02-05] MEDS ORDERED: RIVAROXABAN 15 MG TABLET PO SCH (22:00)
== END 2018-02-05 17:25 | DRG 470 ==
LOC: ER 17:12 → EH 21:46 → 3W 02-01 02:16
PROVIDERS: ADMIT Internal Medicine Geriatric Medicine; ATTEND Internal Medicine Geriatric Medicine
PROC: 30233L1 Transfusion of Nonautologous Fresh Plasma into Peripheral Vein, Percutaneous Approach (ICD-10-PCS; 2018-02-02)
PROC: 0SR902A Replacement of Right Hip Joint with Metal on Polyethylene Synthetic Substitute, Uncemented, Open Approach (ICD-10-PCS; principal; 2018-02-03 12:15)
PROC: 3E02340 Introduction of Influenza Vaccine into Muscle, Percutaneous Approach (ICD-10-PCS; 2018-02-05)
DX: S72.001A Fracture of unspecified part of neck of right femur, initial encounter for closed fracture (principal); I48.2 Chronic atrial fibrillation; I10 Essential (primary) hypertension; E03.9 Hypothyroidism, unspecified; M15.3 Secondary multiple arthritis; E53.8 Deficiency of other specified B group vitamins; V48.4XXA Person boarding or alighting a car injured in noncollision transport accident, initial encounter; H91.90 Unspecified hearing loss, unspecified ear; E11.9 Type 2 diabetes mellitus without complications; E78.00 Pure hypercholesterolemia, unspecified; G47.30 Sleep apnea, unspecified; R79.1 Abnormal coagulation profile; Z96.653 Presence of artificial knee joint, bilateral; Z96.612 Presence of left artificial shoulder joint; Z96.611 Presence of right artificial shoulder joint; Z90.49 Acquired absence of other specified parts of digestive tract; Z88.8 Allergy status to other drugs, medicaments and biological substances; Z23 Encounter for immunization; Z79.899 Other long term (current) drug therapy; Z79.01 Long term (current) use of anticoagulants; Z88.6 Allergy status to analgesic agent; Z82.61 Family history of arthritis; Z80.1 Family history of malignant neoplasm of trachea, bronchus and lung; Z80.0 Family history of malignant neoplasm of digestive organs; Z83.3 Family history of diabetes mellitus; Z82.5 Family history of asthma and other chronic lower respiratory diseases; Z82.49 Family history of ischemic heart disease and other diseases of the circulatory system
CPT/HCPCS: 01210; 36415; 36430; 71045; 72170; 80048; 80053; 81001; 82962; 83036; 85025; 85027; 85610; 85730; 86900; 86901; 88305; 88311; 90686; 93005; 93010; 94799; 99285; C1776; G8978-GP; G8979-GP; G8987-GO; G8988-GO; J0330; J1100; J1741; J1815; J2250; J2270; J2405; J2704; J3010; J3370; J3490; J7050; J7060; J7120; P9017

== ENCOUNTER 2018-02-06 13:30 | Inpatient (IN) | payer MEDICARE, BC ==
[2018-02-06] MEDS ORDERED: NORMAL SALINE 1000 ML 1,000 ML IV ONE (14:19)
[2018-02-06] MEDS ORDERED: ASPIRIN 81 MG TABLET, CHEWABLE PO ONE (14:20)
[2018-02-06] MEDS ORDERED: PIPERACILLIN/TAZOBACTAM 3.375 GM VIAL IV ONE (14:20)
[2018-02-06] MEDS ORDERED: VANCOMYCIN HCL INJ 1000 MG VIAL IV ONE (14:20)
--- NOTE | 2018-02-06 14:25 | ER Document Report ---
ED General - General Chief Complaint: Breathing Difficulty Stated Complaint: DIFFICULTY BREATHING Time Seen by Provider: 02/06/18 14:00 TRAVEL OUTSIDE OF THE [place] IN LAST 30 DAYS: No - HPI Notes: Patient is a 87-year-old female that presents to the emergency department for chief complaint of pneumonia. Patient reports she started feeling chest pain today. She also endorses a substernal chest pain but is not sure when that began. She states her pain is dull and achy. She denies any aggravating or relieving factors. She does endorse a dry cough but denies any fevers or chills. Patient was discharged from the hospital yesterday after having a right hip fracture repair performed. She states she is not on antibiotics currently Past Medical History: A. fib, COPD, hypertension, hyperlipidemia Past Surgical History: Right hip fracture repair Social History: Reviewed in chart Family History: Reviewed and noncontributory for presenting illness Allergies: Reviewed, see documented allergy list. REVIEW OF SYSTEMS: CONSTITUTIONAL : No fever No chills No diaphoresis No recent illness EENT: No vision changes congestion No sore throat CARDIOVASCULAR: chest pain No palpitations RESPIRATORY: shortness of breath cough difficulty breathing GASTROINTESTINAL: No abdominal pain No nausea No vomiting No diarrhea GENITOURINARY: No dysuria No hematuria No difficulty urinating MUSCULOSKELETAL: No back pain No leg pain No arm pain SKIN: No rashes No lesions LYMPHATIC: No swollen, enlarged glands. NEUROLOGICAL: No lightheadedness No headache No weakness No paresthesias PSYCHIATRIC: No anxiety No depression PHYSICAL EXAMINATION: Vital signs reviewed, nursing noted reviewed. GENERAL: Well-appearing, well-nourished and in no acute distress. HEAD: Atraumatic, normocephalic. EYES: Eyes appear normal, extraocular movements intact, sclera anicteric, conjunctiva are normal. ENT: nares patent, oropharynx clear without exudates. Moist mucous membranes. NECK: Normal range of motion, supple without lymphadenopathy Lungs:Coarse breath sounds bilaterally, no accessory muscle use HEART: Tachycardic rate and irregularly irregular rhythm without murmurs ABDOMEN: Distended. Soft, nontender, normoactive bowel sounds. No rebound, guarding, or rigidity. EXTREMITIES: Nontender, good range of motion, no pitting or edema. NEUROLOGICAL: No focal neurological deficits. Moves all extremities spontaneously Motor and sensory grossly intact on exam. PSYCH: Normal mood, normal affect. SKIN: Warm, Dry, normal turgor, postoperative dressing clean and intact - Related Data Allergies/Adverse Reactions: thimerosal [Thimerosal] Allergy (Unknown, Verified 03/21/11 09:19) adhesive tape [Adhesive Tape] Allergy (Verified 03/17/11 11:07) walker skin Past Medical History - Social History Smoking Status: Never Smoker Family History: Reviewed & Not Pertinent - Past Medical History Cardiac Medical History: Reports: Hx Atrial Fibrillation, Hx Hypertension - medicated Denies: Hx Heart Attack Pulmonary Medical History: Denies: Hx Asthma Neurological Medical History: Denies: Hx Cerebrovascular Accident, Hx Seizures Renal/ Medical History: Denies: Hx Peritoneal Dialysis GI Medical History: Denies: Hx Hepatitis, Hx Hiatal Hernia, Hx Ulcer Psychiatric Medical History: Denies: Hx Depression Infectious Medical History: Denies: Hx Hepatitis Past Surgical History: Reports: Hx Abdominal Surgery - colon removed, adhesions, hernia repair, Hx Orthopedic Surgery - bilateral knee replacement, mendoza. shoulder replacement. Denies: Hx Hysterectomy, Hx Mastectomy, Hx Open Heart Surgery, Hx Pacemaker - Immunizations Hx Pneumococcal Vaccination: 11/16/12 Physical Exam - Vital signs Vitals: Pulse Ox 96 02/06/18 13:35 Course - Re-evaluation Re-evalutation: 02/06/18 14:24 Vitals reviewed. Nursing notes reviewed. Patient is tachycardic and had an outpatient x-rays which showed pneumonia. She is meeting sepsis criteria. Patient started on IV fluids, vancomycin and Zosyn. EKG shows no acute change compared to prior. She is complaining of chest pain and was given aspirin. 02/06/18 15:41 Patient has a leukocytosis of 12 which is improving compared to her previous during surgery. Her lactic acid is normal. She has remained tachycardic after 1 L of IV hydration and will be given a second liter of fluids. Patient is meeting sepsis criteria. She will be admitted to the hospital for IV ant ibiotics. She is stable at time of admission. Case discussed with Dr. Clark who accepted admission. Laboratory 02/06/18 02/06/18 02/06/18 14:20 14:20 14:20 WBC 12.7 H RBC 4.06 Hgb 11.0 L Hct 34.3 L MCV 85 MCH 27.1 MCHC 32.1 RDW 18.4 H Plt Count 665 H Total Counted 100 Seg Neutrophils % Not Reportable Seg Neuts % (Manual) 89 H Band Neutrophils % 1 L Lymphocytes % Not Reportable Lymphocytes % (Manual) 6 L Monocytes % Not Reportable Monocytes % (Manual) 4 Eosinophils % Not Reportable Eosinophils % (Manual) 0 Basophils % Not Reportable Basophils % (Manual) 0 Absolute Neutrophils Not Reportable Abs Neuts (Manual) 11.4 H Absolute Lymphocytes Not Reportable Abs Lymphs (Manual) 0.8 Absolute Monocytes Not Reportable Abs Monocytes (Manual) 0.5 Absolute Eosinophils Not Reportable Absolute Eos (Manual) 0.0 Absolute Basophils Not Reportable Abs Basophils (Manual) 0.0 Platelet Comment INCREASED Polychromasia SLIGHT Hypochromasia SLIGHT Anisocytosis 2+ Sodium 136.9 L Potassium 4.4 Chloride 96 L Carbon Dioxide 27 Anion Gap 14 BUN 16 Creatinine 0.56 Est GFR ( Amer) > 60 Est GFR (Non-Af Amer) > 60 Glucose 159 H Lactic Acid 1.5 Calcium 9.1 Total Bilirubin 0.7 Direct Bilirubin 0.5 H Neonat Total Bilirubin Not Reportable Neonat Direct Bilirubin Not Reportable Neonat Indirect Bili Not Reportable AST 35 ALT 25 Alkaline Phosphatase 163 H Troponin I Total Protein 6.2 L Albumin 3.3 L 02/06/18 14:20 WBC RBC Hgb Hct MCV MCH MCHC RDW Plt Count Total Counted Seg Neutrophils % Seg Neuts % (Manual) Band Neutrophils % Lymphocytes % Lymphocytes % (Manual) Monocytes % Monocytes % (Manual) Eosinophils % Eosinophils % (Manual) Basophils % Basophils % (Manual) Absolute Neutrophils Abs Neuts (Manual) Absolute Lymphocytes Abs Lymphs (Manual) Absolute Monocytes Abs Monocytes (Manual) Absolute Eosinophils Absolute Eos (Manual) Absolute Basophils Abs Basophils (Manual) Platelet Comment Polychromasia Hypochromasia Anisocytosis Sodium Potassium Chloride Carbon Dioxide Anion Gap BUN Creatinine Est GFR ( Amer) Est GFR (Non-Af Amer) Glucose Lactic Acid Calcium Total Bilirubin Direct Bilirubin Neonat Total Bilirubin Neonat Direct Bilirubin Neonat Indirect Bili AST ALT Alkaline Phosphatase Troponin I < 0.012 Total Protein Albumin Chest X-Ray 02/06/18 14:01 IMPRESSION: New heterogeneous opacity of the left lung base and loss of left diaphragmatic distinction, which may reflect atelectasis or developing airspace disease. Consider PA and lateral radiographs or CT to further evaluate as indicated by clinical concern. - Vital Signs Vital signs: Temp Pulse Resp BP Pulse Ox 97.8 F 16 146/75 H 96 02/06/18 13:37 02/06/18 15:03 02/06/18 15:03 02/06/18 15:03 - Laboratory Result Diagrams: 02/06/18 14:20 02/06/18 14:20 Laboratory results interpreted by me: 02/06/18 02/06/18 14:20 14:20 WBC 12.7 H Hgb 11.0 L Hct 34.3 L RDW 18.4 H Plt Count 665 H Seg Neuts % (Manual) 89 H Band Neutrophils % 1 L Lymphocytes % (Manual) 6 L Abs Neuts (Manual) 11.4 H Sodium 136.9 L Chloride 96 L Glucose 159 H Direct Bilirubin 0.5 H Alkaline Phosphatase 163 H Total Protein 6.2 L Albumin 3.3 L - EKG Interpretation by Me Additional EKG results interpreted by me: 02/06/18 14:21 Interpreted by myself 1413: Atrial fibrillation, rate 100, left axis, low voltage, no ST elevation, no significant change from 01/31/18 Procedures - Additional Procedures IV insertion Time performed: 14:21 Additional Procedures: IV insertion Notes: 02/06/18 14:21 Bedside ultrasound using linear probe for peripheral ultrasound. One attempt with successful cannulation using 18-gauge just proximal to right AC. Good blood return, flushes easily. Patient tolerated with no complications Critical Care Note - Critical Care Note Total time excluding time spent on procedures (mins): 41 Comments: 41 Minutes of critical care time spent in direct contact evaluating and reevaluating the patient, treating symptoms, reviewing labs and studies and speaking with family and consultants excluding any procedures Discharge - Discharge Clinical Impression: Pleural effusion, left, Postoperative ileus Left lower lobe pneumonia Qualifiers: Pneumonia type: due to unspecified organism Qualified Code(s): J18.1 - Lobar pneumonia, unspecified organism Sepsis Qualifiers: Sepsis type: sepsis due to unspecified organism Qualified Code(s): A41.9 - Sepsis, unspecified organism Condition: Stable Disposition: ADMITTED INPATIENT Admitting Provider: [facility] Admitted: Telemetry
--- NOTE | 2018-02-06 14:54 | RADIOLOGY REPORT (SQ) ---
EXAM DESCRIPTION: CHEST SINGLE VIEW COMPLETED DATE/TIME: 02/06/2018 2:43 pm REASON FOR STUDY: short of breath COMPARISON: 01/31/2018 EXAM PARAMETERS: NUMBER OF VIEWS: One view. TECHNIQUE: Single frontal radiographic view of the chest acquired. RADIATION DOSE: NA LIMITATIONS: None. FINDINGS: LUNGS AND PLEURA: New heterogeneous opacity of the left lung base and loss of left diaphra gmatic distinction. MEDIASTINUM AND HILAR STRUCTURES: No masses. Contour normal. HEART AND VASCULAR STRUCTURES: Heart normal in size. Normal vasculature. BONES: No acute findings. HARDWARE: None in the chest. OTHER: No other significant finding. IMPRESSION: New heterogeneous opacity of the left lung base and loss of left diaphragmatic distincti on, which may reflect atelectasis or developing airspace disease. Consider PA and lateral radiograph s or CT to further evaluate as indicated by clinical concern. TECHNICAL DOCUMENTATION: JOB ID: [id number] [employer]- All Rights Reserved Reading location - IP/workstation name: [email or web address]
[2018-02-06 15:00] LABS: HEMATOCRIT 34.3 % (36.0-47.0); MEAN CORPUSCULAR HEMOGLOBIN 27.1 pg (27.0-33.4); MEAN CORPUSCULAR HGB CONC 32.1 g/dL (32.0-36.0); MEAN CORPUSCULAR VOLUME 85 fl (80-97); PLATELET COUNT 665 10^3/uL (150-450); RED BLOOD COUNT 4.06 10^6/uL (3.72-5.28); RED CELL DISTRIBUTION WIDTH 18.4 % (11.5-14.0); WHITE BLOOD COUNT 12.7 10^3/uL (4.0-10.5)
[2018-02-06 15:05] LABS: ALANINE AMINOTRANSFERASE 25 U/L (9-52); ALBUMIN 3.3 g/dL (3.5-5.0); ALKALINE PHOSPHATASE 163 U/L (38-126); ANION GAP 14 (5-19); ASPARTATE AMINO TRANSFERASE 35 U/L (14-36); BILIRUBIN,DIRECT 0.5 mg/dL (0.0-0.4); BILIRUBIN,TOTAL 0.7 mg/dL (0.2-1.3); BLOOD UREA NITROGEN 16 mg/dL (7-20); CALCIUM 9.1 mg/dL (8.4-10.2); CARBON DIOXIDE 27 mmol/L (22-30); CHLORIDE 96 mmol/L (98-107); GLUCOSE 159 mg/dL (75-110); POTASSIUM 4.4 mmol/L (3.6-5.0); SODIUM 136.9 mmol/L (137-145); TOTAL PROTEIN 6.2 g/dL (6.3-8.2)
[2018-02-06 15:20] LABS: ABSOLUTE LYMPHOCYTES# (MANUAL) 0.8 10^3/uL (0.5-4.7); ABSOLUTE MONOCYTES # (MANUAL) 0.5 10^3/uL (0.1-1.4); ABSOLUTE NEUTROPHILS# (MANUAL) 11.4 10^3/uL (1.7-8.2); BAND NEUTROPHILS % (MANUAL) 1 % (3-5); BASOPHILS % (MANUAL) 0 % (0-2); EOSINOPHILS % (MANUAL) 0 % (0-6); LYMPHOCYTES % (MANUAL) 6 % (13-45); MONOCYTES % (MANUAL) 4 % (3-13); SEGMENTED NEUTROPHILS % (MAN) 89 % (42-78); TOTAL CELLS COUNTED 100
[2018-02-06 15:22] LABS: ANISOCYTOSIS 2+; HYPOCHROMASIA SLIGHT; PLATELET COMMENT INCREASED; POLYCHROMASIA SLIGHT
[2018-02-06] MEDS ORDERED: FENTANYL CITRATE INJ/PF 100 MCG/2 ML AMPUL IV ONE (15:42)
--- NOTE | 2018-02-06 18:11 | EKG REPORT ---
SEVERITY:- ABNORMAL ECG - ATRIAL FIBRILLATION, V-RATE 77-112 LEFT AXIS DEVIATION LOW VOLTAGE IN FRONTAL LEADS NONSPECIFIC REPOL ABNORMALITY, DIFFUSE LEADS : Confirmed by: Rolando Martino MD 06-Feb-2018 18:10:51
[2018-02-06] MEDS ORDERED: NORMAL SALINE 1000 ML 1,000 ML IV PRN (20:16)
[2018-02-06] MEDS: IPRATROPIUM/ALBUTEROL 0.5-2.5 MG/3 ML AMPUL NEB PRN (20:50)
[2018-02-06 20:57] LABS: ARTERIAL BLOOD BASE EXCESS 6.1 mmol/L; ARTERIAL BLOOD H2CO3 1.19 mmol/L (1.05-1.35); ARTERIAL BLOOD HCO3 29.8 mmol/L (20-24); ARTERIAL BLOOD O2 SATURATION 96.1 % (94-98); ARTERIAL BLOOD PCO2 39.5 mmHg (35-45); ARTERIAL BLOOD PO2 75.6 mmHg (80-100)
[2018-02-06 21:00] LABS: ARTERIAL BLOOD FIO2 32%
[2018-02-06] MEDS ORDERED: LEVOFLOXACIN 750 MG/D5W RTU 750 MG/150 ML RTUPB IV ONE (21:00)
[2018-02-06 21:06] LABS: PHOSPHORUS 3.7 mg/dL (2.5-4.5)
[2018-02-06 21:07] LABS: AMYLASE < 30 U/L (30-110)
--- NOTE | 2018-02-06 21:13 | PDOC H&P ---
History of Present Illness Admission Date/PCP: 02/06/18 15:54 JUSTICE HARRIS History of Present Illness: WILLIAM FISH is a 87 year old female, She was just discharged yesterday, she was recently admitted on January 31, 2018 when she sustained a closed right hip fracture she underwent right hip hemiarthroplasty on 02/03/2018 she was transferred to the correction for rehabilitation on 02/05/2018. She was referred to the emergency room because of concern for pneumonia CT chest was done without contrast, it demonstrated small bilateral pleural lobar pneumonia also found was bilateral total shoulder arthroplasty. When I saw the patient on the floor she has distended abdomen, there was also edema affecting the abdominal wall, the extremities she is found crackled on auscultation of the chest there is associated hypoalbuminemia consequent third spacing. CT scan of the abdomen and pelvis without contrast demonstrated marked gastric distention, there is marked distention of small bowel loops to the abdomen, relative decompression of the colon there is a lower abdominal wall hernia which contains bowel which appears obstructed Past Medical History Cardiac Medical History: Reports: Atrial Fibrillation, Hypertension - medicated Endocrine Medical History: Reports: Hypothyroidism Musculoskeltal Medical History: Reports: Arthritis, Other - Generalized osteoarthritis Past Surgical History Past Surgical History: Reports: Appendectomy, Cholecystectomy, Orthopedic Surgery - bilateral knee replacement, mendoza. shoulder replacement Denies: Amputation, Hysterectomy, Mastectomy, Pacemaker Social History Smoking Status: Never Smoker Frequency of Alcohol Use: None Hx Recreational Drug Use: No Drugs: None Hx Prescription Drug Abuse: No Family History Family History: Reviewed & Not Pertinent Parental Family History Reviewed: Yes Children Family History Reviewed: Yes Sibling(s) Family History Reviewed.: Yes Medication/Allergy Home Medications: Furosemide [Lasix 40 mg Tablet] 40 mg PO QAM 03/17/11 Potassium Chloride [Klor-Con 10 Meq Capsule ER] 20 meq PO DAILY 03/17/11 Calcium Carbonate [Calcium] 600 mg PO DAILY 04/25/13 Fluticasone Propionate [Flonase Nasal [place] 50 Mcg/[place] 16 gm] 2 sprays NASL DAILY PRN 07/13/14 Tramadol HCl/Acetaminophen [Tramadol-Acetaminophn 37.5-325] 1 each PO TIDP PRN 07/13/14 Amlodipine Besylate [Norvasc 5 mg Tablet] 5 mg PO DAILY 01/31/18 Cetirizine HCl [Zyrtec 5 mg Tablet] 5 mg PO DAILY 01/31/18 Levothyroxine Sodium [Synthroid 0.088 mg Tablet] 0.088 mg PO Q6AM 01/31/18 Bifidobacterium Infantis [Align 4 mg Capsule] 1 cap PO DAILY 02/01/18 Cyanocobalamin (Vitamin B-12) [Vitamin B-12 Inj 1000 Mcg/1 ml Vial] 1,000 mcg IM .MONTHLY 02/01/18 Duloxetine HCl [Cymbalta 20 mg Capsule.dr] 20 mg PO QHS 02/01/18 Krill/Om-3/Dha/Epa/Phospho/Ast [Megared [place]-3 Krill Oil Sfgl] 1 each PO DAILY 02/01/18 Rivaroxaban [Xarelto 15 mg Tablet] 15 mg PO QHS 02/01/18 Rosuvastatin Calcium [Crestor 10 mg Tablet] 10 mg PO QHS 02/01/18 Sennosides/Docusate 8.6-50 mg [Senna Plus Tablet] 1 each PO BID #120 tablet 02/05/18 Allergies/Adverse Reactions: thimerosal [Thimerosal] Allergy (Unknown, Verified 03/21/11 09:19) adhesive tape [Adhesive Tape] Allergy (Verified 03/17/11 11:07) walker skin Physical Exam Vital Signs: Temp Pulse Resp BP Pulse Ox 97.3 F 99 20 143/79 H 98 02/06/18 19:31 02/06/18 19:31 02/06/18 19:31 02/06/18 19:31 02/06/18 19:31 Intake & Output 02/05/18 02/06/18 02/07/18 06:59 06:59 06:59 Intake Total 1000 Balance 1000 Weight 79.6 kg General appearance: PRESENT: morbidly obese Head exam: PRESENT: atraumatic, normocephalic Eye exam: PRESENT: PERRLA Mouth exam: PRESENT: moist, tongue midline Neck exam: PRESENT: full ROM Respiratory exam: PRESENT: rales, rhonchi, wheezes Cardiovascular exam: PRESENT: +S1, +S2 Vascular exam: PRESENT: normal capillary refill GI/Abdominal exam: PRESENT: distended, hernia, soft Rectal exam: PRESENT: deferred Extremities exam: PRESENT: pedal edema Neurological exam: PRESENT: alert, CN II-XII grossly intact Results Laboratory Results: 02/06/18 14:20 02/06/18 14:20 02/06/18 02/06/18 02/06/18 14:20 14:20 14:20 WBC 12.7 H RBC 4.06 Hgb 11.0 L Hct 34.3 L MCV 85 MCH 27.1 MCHC 32.1 RDW 18.4 H Plt Count 665 H Seg Neutrophils % Not Reportable Lymphocytes % Not Reportable Monocytes % Not Reportable Eosinophils % Not Reportable Basophils % Not Reportable Absolute Neutrophils Not Reportable Absolute Lymphocytes Not Reportable Absolute Monocytes Not Reportable Absolute Eosinophils Not Reportable Absolute Basophils Not Reportable Carbonic Acid HCO3/H2CO3 Ratio ABG pH ABG pCO2 ABG pO2 ABG HCO3 ABG O2 Saturation ABG Base Excess FiO2 Sodium 136.9 L Potassium 4.4 Chloride 96 L Carbon Dioxide 27 Anion Gap 14 BUN 16 Creatinine 0.56 Est GFR ( Amer) > 60 Est GFR (Non-Af Amer) > 60 Glucose 159 H Lactic Acid 1.5 Calcium 9.1 Phosphorus Magnesium Total Bilirubin 0.7 AST 35 ALT 25 Alkaline Phosphatase 163 H Ammonia Total Protein 6.2 L Albumin 3.3 L Amylase Lipase 02/06/18 02/06/18 02/06/18 20:40 20:40 20:45 WBC RBC Hgb Hct MCV MCH MCHC RDW Plt Count Seg Neutrophils % Lymphocytes % Monocytes % Eosinophils % Basophils % Absolute Neutrophils Absolute Lymphocytes Absolute Monocytes Absolute Eosinophils Absolute Basophils Carbonic Acid 1.19 HCO3/H2CO3 Ratio 25:1 ABG pH 7.50 H ABG pCO2 39.5 ABG pO2 75.6 L ABG HCO3 29.8 H ABG O2 Saturation 96.1 ABG Base Excess 6.1 FiO2 32% Sodium Potassium Chloride Carbon Dioxide Anion Gap BUN Creatinine Est GFR ( Amer) Est GFR (Non-Af Amer) Glucose Lactic Acid Calcium Phosphorus 3.7 Magnesium 2.0 Total Bilirubin AST ALT Alkaline Phosphatase Ammonia < 8.7 L Total Protein Albumin Amylase < 30 L Lipase 21.0 L 02/06/18 02/06/18 14:20 20:40 Creatine Kinase 42 Troponin I < 0.012 Impressions: Chest X-Ray 02/06/18 14:01 IMPRESSION: New heterogeneous opacity of the left lung base and loss of left diaphragmatic distinction, which may reflect atelectasis or developing airspace disease. Consider PA and lateral radiographs or CT to further evaluate as indicated by clinical concern. Assessment & Plan - Diagnosis (1) Bilateral pneumonia Qualifiers: Pneumonia type: due to unspecified organism Lung location: unspecified part of lung Qualified Code(s): J18.9 - Pneumonia, unspecified organism Is this a current diagnosis for this admission?: Yes Plan: Start IV antibiotic (2) Small bowel obstruction Is this a current diagnosis for this admission?: Yes Plan: Insert NG tube, consult surgery (3) Hypoalbuminemia Is this a current diagnosis for this admission?: Yes Plan: Urine for protein creatinine ratio, Lasix IV, ? cause,Nephrotic syndrome? liver disease (4) Status post closed fracture of right hip Is this a current diagnosis for this admission?: Yes Plan: Risk of VTE is high in this patient start Lovenox (5) Hypothyroidism Qualifiers: Hypothyroidism type: unspecified Qualified Code(s): E03.9 - Hypothyroidism, unspecified Is this a current diagnosis for this admission?: Yes
[2018-02-06 21:20] LABS: CREATINE KINASE MB 1.18 ng/mL (<4.55)
[2018-02-06 21:23] LABS: FREE T4 (FREE THYROXINE) 0.83 ng/dL (0.78-2.19); TROPONIN I < 0.012 ng/mL
[2018-02-06 21:37] LABS: THYROID STIMULATING HORMONE 0.24 uIU/mL (0.47-4.68)
[2018-02-06] MEDS ORDERED: IMIPENEM/CILASTATIN SODIUM INJ 500 MG VIAL IV ONE (22:18)
[2018-02-06] MEDS: ENOXAPARIN SODIUM INJ 40 MG/0.4 ML DISP.SYRIN SUBCUT SCH (23:33)
[2018-02-06] MEDS ORDERED: CEFEPIME 1 GM/D5W RTU 1 GM/50 ML RTUPB IV ONE (23:41)
[2018-02-06] MEDS: CEFEPIME 1 GM/D5W RTU 1 GM/50 ML RTUPB IV SCH (23:53)
--- NOTE | 2018-02-07 02:08 | RADIOLOGY REPORT (SQ) ---
EXAM DESCRIPTION: CT CHEST WITHOUT IV CONTRAST COMPLETED DATE/TME: 02/06/2018 00:00 CLINICAL HISTORY: 87 years Female, pneumonia Comparison:02/06/2018 Technique: No contrast. Coronal and sagittal reformat. This exam was performed according to our departmental dose-optimization program, which includes automated exposure control, adjustment of the mA and/or kV according to patient size and/or use of iterative reconstruction technique. [facility]: Dose Right [facility]: CareDose [facility]: Dose Right [facility]: Teradose 4D [facility]: judo LIMITATIONS: None Findings: Upper abdominal clips. Bilateral total shoulder arthroplasty. Mild mediastinal lymphadenopathy. Small bilateral pleural effusions. Small dependent consolidate of bilateral lower lobes with few air bronchograms. Coronary arterial calcification/stent. Atherosclerosis. Degenerative disc disease. Minimal ascites. Macrolobulation of the liver, nonspecific. Unenhanced inferior neck, axillae, airway, heart, vasculature, upper abdomen, and musculoskeleton appear otherwise unremarkable. Impression: Small bilateral lower lobar pneumonia. Small bilateral pleural effusions. Recommend CR/CT surveillance including at 7-12 weeks following initiation of any clinically warranted therapy.
[2018-02-07 05:30] LABS: HEMATOCRIT 32.7 % (36.0-47.0); HEMOGLOBIN 10.5 g/dL (12.0-15.5); MEAN CORPUSCULAR HEMOGLOBIN 26.9 pg (27.0-33.4); MEAN CORPUSCULAR HGB CONC 32.2 g/dL (32.0-36.0); MEAN CORPUSCULAR VOLUME 84 fl (80-97); PLATELET COUNT 622 10^3/uL (150-450); RED BLOOD COUNT 3.91 10^6/uL (3.72-5.28); RED CELL DISTRIBUTION WIDTH 18.6 % (11.5-14.0); WHITE BLOOD COUNT 9.4 10^3/uL (4.0-10.5)
[2018-02-07 05:57] LABS: ALANINE AMINOTRANSFERASE 17 U/L (9-52); ALBUMIN 2.8 g/dL (3.5-5.0); ALKALINE PHOSPHATASE 131 U/L (38-126); ANION GAP 9 (5-19); ASPARTATE AMINO TRANSFERASE 27 U/L (14-36); BILIRUBIN,DIRECT 0.4 mg/dL (0.0-0.4); BILIRUBIN,TOTAL 0.6 mg/dL (0.2-1.3); BLOOD UREA NITROGEN 17 mg/dL (7-20); CALCIUM 8.3 mg/dL (8.4-10.2); CARBON DIOXIDE 27 mmol/L (22-30); CHLORIDE 97 mmol/L (98-107); GLUCOSE 151 mg/dL (75-110); POTASSIUM 4.3 mmol/L (3.6-5.0); SODIUM 132.7 mmol/L (137-145); TOTAL PROTEIN 5.6 g/dL (6.3-8.2); TRIGLYCERIDES 107 mg/dL (<150)
[2018-02-07 06:01] LABS: ABSOLUTE LYMPHOCYTES# (MANUAL) 0.8 10^3/uL (0.5-4.7); ABSOLUTE MONOCYTES # (MANUAL) 0.5 10^3/uL (0.1-1.4); ABSOLUTE NEUTROPHILS# (MANUAL) 8.1 10^3/uL (1.7-8.2); ANISOCYTOSIS 2+; BASOPHILS % (MANUAL) 0 % (0-2); EOSINOPHILS % (MANUAL) 0 % (0-6); LYMPHOCYTES % (MANUAL) 9 % (13-45); MONOCYTES % (MANUAL) 5 % (3-13); PLATELET COMMENT INCREASED; POLYCHROMASIA 2+; SEGMENTED NEUTROPHILS % (MAN) 86 % (42-78); TOTAL CELLS COUNTED 100
[2018-02-07 06:04] LABS: CREATINE KINASE MB 1.18 ng/mL (<4.55)
[2018-02-07 06:08] LABS: DIRECT LDL 33 mg/dL (<100)
[2018-02-07 06:17] LABS: TROPONIN I < 0.012 ng/mL
[2018-02-07 11:47] LABS: CREATINE KINASE MB 0.99 ng/mL (<4.55)
[2018-02-07 11:51] LABS: TROPONIN I < 0.012 ng/mL
[2018-02-07] MEDS ORDERED: FUROSEMIDE INJ/PF 40 MG/4 ML SDV ONE (12:54)
--- NOTE | 2018-02-07 12:55 | RADIOLOGY REPORT (SQ) ---
EXAM DESCRIPTION: CT ABD/PELVIS NO ORAL OR IV COMPLETED DATE/TIME: 02/07/2018 12:41 pm REASON FOR STUDY: abdominal distension COMPARISON: 07/17/2014 TECHNIQUE: CT scan of the abdomen and pelvis performed without intravenous or oral contrast. Images reviewed with lung, soft tissue, and bone windows. Reconstructed coronal and sagittal MPR images revi ewed. All images stored on PACS. All CT scanners at this facility use dose modulation, iterative reconstruction, and/or weight based d osing when appropriate to reduce radiation dose to as low as reasonably achievable (ALARA). [facility]: Dose Right [facility]: CareDose [facility]: Dose Right [facility]: Teradose 4D [facility]: Smart LiveGO RADIATION DOSE: CT Rad equipment meets quality standard of care and radiation dose reduction techniq ues were employed. CTDIvol: 19.5 mGy. DLP: 1067 mGy-cm.mGy. LIMITATIONS: None. FINDINGS: LOWER CHEST: Bilateral pleural effusions with bibasilar pneumonia. NON-CONTRASTED LIVER, SPLEEN, ADRENALS: Evaluation limited by lack of IV contrast. No identified sign ificant masses. PANCREAS: No masses. No peripancreatic inflammatory changes. GALLBLADDER: Surgically absent. RIGHT KIDNEY AND URETER: No suspicious masses. Assessment limited by lack of IV contrast. No signif icant calcifications. No hydronephrosis or hydroureter. LEFT KIDNEY AND URETER: No suspicious masses. Assessment limited by lack of IV contrast. No signifi cant calcifications. No hydronephrosis or hydroureter. AORTA AND RETROPERITONEUM: No aneurysm. No retroperitoneal masses or adenopathy. BOWEL AND PERITONEAL CAVITY: There is marked gastric distention. There is marked distention of small bowel loops through the abdomen. Relative decompression of the colon. There is a lower abdominal w all hernia which contains bowel which appears partially obstructed. APPENDIX: Not visualized. PELVIS, BLADDER, AND ABDOMINAL WALL:No abnormal masses. No free fluid. Bladder normal. BONES: Bipolar prosthesis right hip. OTHER: No other significant finding. IMPRESSION: High-grade partial small bowel obstruction secondary to a partially obstructed loop of s mall bowel in at lower abdominal wall ventral hernia. COMMENT: Quality ID # [id number]: Final reports with documentation of one or more dose reduction techniques (e.g., Automated exposure control, adjustment of the mA and/or kV according to patient size, use of iterative reconstruction technique) TECHNICAL DOCUMENTATION: JOB ID: [id number] [employer]- All Rights Reserved Reading location - IP/workstation name: [email or web address]
[2018-02-07] MEDS: CEFEPIME 1 GM/D5W RTU 1 GM/50 ML RTUPB IV SCH ×2 (12:57→22:04)
[2018-02-07] MEDS ORDERED: FUROSEMIDE INJ/PF 40 MG/4 ML SDV IV ONE (13:00)
[2018-02-07] MEDS ORDERED: PHARMACY COMMUNICATION ORDER MC NR (13:00)
--- NOTE | 2018-02-07 13:27 | PDOC PROGRESS REPORT ---
Subjective Progress Note for:: 02/07/18 Subjective:: Patient was admitted yesterday because of pneumonia, generalized edema, small bowel obstruction Reason For Visit: [facility] Physical Exam Vital Signs: Temp Pulse Resp BP Pulse Ox 98.3 F 83 18 166/68 H 96 02/07/18 11:13 02/07/18 12:02 02/07/18 12:02 02/07/18 11:13 02/07/18 12:02 Intake & Output 02/06/18 02/07/18 02/08/18 06:59 06:59 06:59 Intake Total 1565 935 Balance 1565 935 Weight 80.2 kg Eye exam: PRESENT: PERRLA Respiratory exam: PRESENT: crackles Cardiovascular exam: PRESENT: +S1, +S2 GI/Abdominal exam: PRESENT: distended Neurological exam: PRESENT: alert Results Laboratory Results: 02/07/18 03:52 02/07/18 03:52 02/06/18 02/06/18 02/06/18 14:20 14:20 14:20 WBC 12.7 H RBC 4.06 Hgb 11.0 L Hct 34.3 L MCV 85 MCH 27.1 MCHC 32.1 RDW 18.4 H Plt Count 665 H Seg Neutrophils % Not Reportable Lymphocytes % Not Reportable Monocytes % Not Reportable Eosinophils % Not Reportable Basophils % Not Reportable Absolute Neutrophils Not Reportable Absolute Lymphocytes Not Reportable Absolute Monocytes Not Reportable Absolute Eosinophils Not Reportable Absolute Basophils Not Reportable Carbonic Acid HCO3/H2CO3 Ratio ABG pH ABG pCO2 ABG pO2 ABG HCO3 ABG O2 Saturation ABG Base Excess FiO2 Sodium 136.9 L Potassium 4.4 Chloride 96 L Carbon Dioxide 27 Anion Gap 14 BUN 16 Creatinine 0.56 Est GFR ( Amer) > 60 Est GFR (Non-Af Amer) > 60 Glucose 159 H Lactic Acid 1.5 Calcium 9.1 Phosphorus Magnesium Total Bilirubin 0.7 AST 35 ALT 25 Alkaline Phosphatase 163 H Ammonia Total Protein 6.2 L Albumin 3.3 L Triglycerides Cholesterol LDL Cholesterol Direct VLDL Cholesterol HDL Cholesterol Amylase Lipase TSH Free T4 02/06/18 02/06/18 02/06/18 20:40 20:40 20:40 WBC RBC Hgb Hct MCV MCH MCHC RDW Plt Count Seg Neutrophils % Lymphocytes % Monocytes % Eosinophils % Basophils % Absolute Neutrophils Absolute Lymphocytes Absolute Monocytes Absolute Eosinophils Absolute Basophils Carbonic Acid HCO3/H2CO3 Ratio ABG pH ABG pCO2 ABG pO2 ABG HCO3 ABG O2 Saturation ABG Base Excess FiO2 Sodium Potassium Chloride Carbon Dioxide Anion Gap BUN Creatinine Est GFR ( Amer) Est GFR (Non-Af Amer) Glucose Lactic Acid Calcium Phosphorus 3.7 Magnesium 2.0 Total Bilirubin AST ALT Alkaline Phosphatase Ammonia < 8.7 L Total Protein Albumin Triglycerides Cholesterol LDL Cholesterol Direct VLDL Cholesterol HDL Cholesterol Amylase < 30 L Lipase 21.0 L TSH 0.24 L Free T4 0.83 02/06/18 02/07/18 02/07/18 20:45 03:52 03:52 WBC 9.4 RBC 3.91 Hgb 10.5 L Hct 32.7 L MCV 84 MCH 26.9 L MCHC 32.2 RDW 18.6 H Plt Count 622 H Seg Neutrophils % Not Reportable Lymphocytes % Not Reportable Monocytes % Not Reportable Eosinophils % Not Reportable Basophils % Not Reportable Absolute Neutrophils Not Reportable Absolute Lymphocytes Not Reportable Absolute Monocytes Not Reportable Absolute Eosinophils Not Reportable Absolute Basophils Not Reportable Carbonic Acid 1.19 HCO3/H2CO3 Ratio 25:1 ABG pH 7.50 H ABG pCO2 39.5 ABG pO2 75.6 L ABG HCO3 29.8 H ABG O2 Saturation 96.1 ABG Base Excess 6.1 FiO2 32% Sodium 132.7 L Potassium 4.3 Chloride 97 L Carbon Dioxide 27 Anion Gap 9 BUN 17 Creatinine 0.49 L Est GFR ( Amer) > 60 Est GFR (Non-Af Amer) > 60 Glucose 151 H Lactic Acid Calcium 8.3 L Phosphorus Magnesium Total Bilirubin 0.6 AST 27 ALT 17 Alkaline Phosphatase 131 H Ammonia Total Protein 5.6 L Albumin 2.8 L Triglycerides 107 Cholesterol 61.80 LDL Cholesterol Direct 33 VLDL Cholesterol 21.0 HDL Cholesterol 23 L Amylase Lipase TSH Free T4 02/06/18 02/06/18 02/06/18 14:20 20:40 20:40 Creatine Kinase 42 CK-MB (CK-2) 1.18 Troponin I < 0.012 < 0.012 02/07/18 02/07/18 02/07/18 03:52 03:52 10:50 Creatine Kinase 40 39 CK-MB (CK-2) 1.18 Troponin I < 0.012 02/07/18 10:50 Creatine Kinase CK-MB (CK-2) 0.99 Troponin I < 0.012 Impressions: Chest X-Ray 02/06/18 14:01 IMPRESSION: New heterogeneous opacity of the left lung base and loss of left di aphragmatic distinction, which may reflect atelectasis or developing airspace disease. Consider PA and lateral radiographs or CT to further evaluate as indicated by clinical concern. Abdomen/Pelvis CT 02/07/18 00:00 IMPRESSION: High-grade partial small bowel obstruction secondary to a partially obstructed loop of small bowel in at lower abdominal wall ventral hernia. Assessment & Plan - Diagnosis (1) Bilateral pneumonia Qualifiers: Pneumonia type: due to unspecified organism Lung location: unspecified part of lung Qualified Code(s): J18.9 - Pneumonia, unspecified organism Is this a current diagnosis for this admission?: Yes (2) Small bowel obstruction Is this a current diagnosis for this admission?: Yes Plan: Insert NG tube, consult surgery (3) Hypoalbuminemia Is this a current diagnosis for this admission?: Yes Plan: The urine creatinine ratio is non-nephrotic range proteinuriaThe hypoalbuminemia could be secondary to liver disease or protein losing enteropathy, she has small bowel obstruction, NG tube inserted consult from surgery is obtained (4) Status post closed fracture of right hip Is this a current diagnosis for this admission?: Yes (5) Hypothyroidism Qualifiers: Hypothyroidism type: unspecified Qualified Code(s): E03.9 - Hypothyroidism, unspecified Is this a current diagnosis for this admission?: Yes
[2018-02-07 14:13] LABS: APPEARANCE,URINE SLIGHTLY-CLOUDY; BILIRUBIN,URINE NEGATIVE (NEGATIVE); COLOR,URINE STRAW; GLUCOSE, URINE NEGATIVE (NEGATIVE); KETONES,URINE NEGATIVE (NEGATIVE); LEUKOCYTE ESTERASE,URINE MODERATE (NEGATIVE); NITRITE,URINE NEGATIVE (NEGATIVE); PROTEIN,URINE NEGATIVE (NEGATIVE); URINE SPECIFIC GRAVITY 1.005; UROBILINOGEN,URINE NEGATIVE mg/dL (<2.0)
[2018-02-07 14:27] LABS: URINE AMPHETAMINES SCREEN NEGATIVE; URINE BARBITURATES SCREEN NEGATIVE; URINE BENZODIAZEPINES SCREEN NEGATIVE; URINE COCAINE SCREEN NEGATIVE; URINE MARIJUANA (THC) SCREEN NEGATIVE; URINE METHADONE SCREEN NEGATIVE; URINE PHENCYCLIDINE SCREEN NEGATIVE
[2018-02-07 14:31] LABS: UR PRO/CREAT RATIO RESULT 1.5 mg/mg (0.0-0.2); URINE CREATININE 9.5 mg/dL (15-278); URINE PROTEIN 14.7 mg/dL (<12)
[2018-02-07] MEDS ORDERED: LIDOCAINE 5% (700 MG) TRANSDERMAL ADH..PATCH TP ONE (17:00)
--- NOTE | 2018-02-07 18:02 | RADIOLOGY REPORT (SQ) ---
EXAM DESCRIPTION: KUB/ABDOMEN (SINGLE VIEW) COMPLETED DATE/TIME: 02/07/2018 4:07 pm REASON FOR STUDY: Check Placement of NG Tube COMPARISON: None. NUMBER OF VIEWS: One view. TECHNIQUE: Supine radiographic image of the abdomen acquired. LIMITATIONS: None. FINDINGS: BOWEL GAS PATTERN: Dilatation of small bowel loops in stomach. CALCIFICATIONS: No suspicious calcifications. SOFT TISSUES: No gross mass or suggestion of organomegaly. HARDWARE: NG tube in the stomach. Multiple surgical clips. BONES: No acute fracture. No worrisome bone lesions. OTHER: No other significant finding. IMPRESSION: Nasogastric tube tip in the stomach. TECHNICAL DOCUMENTATION: JOB ID: [id number] [employer]- All Rights Reserved Reading location - IP/workstation name: [email or web address]
[2018-02-07] MEDS ORDERED: GLYCERIN 99.5% (ANHYDROUS) 177 ML PR ONE (18:10)
[2018-02-07] MEDS ORDERED: MINERAL OIL ENEMA 133 ML PR ONE ×2 (18:10→18:49)
[2018-02-07] MEDS: LEVOTHYROXINE SODIUM INJ/PF 0.1 MG SDV IV SCH (18:28)
[2018-02-07] MEDS: LEVOFLOXACIN 750 MG/D5W RTU 750 MG/150 ML RTUPB IV SCH (18:31)
--- NOTE | 2018-02-07 18:38 | PDOC CONSULTATION ---
Consultation Consult Date: 02/07/18 Consult reason:: Abdominal distention, constipation. History of Present Illness Admission Date/PCP: 02/06/18 15:54 JUSTICE HELADIORozina Patient complains of: Abdominal distention. History of Present Illness: WILLIAM FISH is a 87 year old female seen at the request of Dr. Clark. The patient recently underwent right hip surgery. [facility] been at the [facility] several days. The patient reports that she has not had a bowel movement in over 1 week. She continues to pass flatus. Patient has had progressive abdominal distention for the last several days. She reports some discomfort in her abdomen, not necessarily pain. The patient denies nausea or vomiting. She also denies dizziness, chest pain, shortness of breath, headache, blurry vision. She does report malaise, fatigue, right hip pain. Past Medical History Cardiac Medical History: Reports: Atrial Fibrillation, Hypertension - medicated Denies: Myocardial Infarction Pulmonary Medical History: Denies: Asthma Neurological Medical History: Denies: Seizures Endocrine Medical History: Reports: Hypothyroidism GI Medical History: Denies: Hepatitis, Hiatal Hernia Musculoskeltal Medical History: Reports: Arthritis, Other - Generalized osteoarthritis Psychiatric Medical History: Denies: Depression Hematology: Denies: Anemia, Sickle Cell Disease Past Surgical History Past Surgical History: Reports: Appendectomy, Cholecystectomy, Orthopedic Surgery - bilateral knee replacement, mendoza. shoulder replacement Denies: Amputation, Hysterectomy, Mastectomy, Pacemaker Social History Smoking Status: Never Smoker Frequency of Alcohol Use: None Hx Recreational Drug Use: No Drugs: None Hx Prescription Drug Abuse: No Family History Family History: Reviewed & Not Pertinent Parental Family History Reviewed: Yes Children Family History Reviewed: Yes Sibling(s) Family History Reviewed.: Yes Medication/Allergy Home Medications: Furosemide [Lasix 40 mg Tablet] 40 mg PO QAM 03/17/11 Potassium Chloride [Klor-Con 10 Meq Capsule ER] 20 meq PO DAILY 03/17/11 Calcium Carbonate [Calcium] 600 mg PO DAILY 04/25/13 Fluticasone Propionate [Flonase Nasal [place] 50 Mcg/[place] 16 gm] 2 sprays NASL DAILY PRN 07/13/14 Tramadol HCl/Acetaminophen [Tramadol-Acetaminophn 37.5-325] 1 each PO TIDP PRN 07/13/14 Amlodipine Besylate [Norvasc 5 mg Tablet] 5 mg PO DAILY 12/16/18 Cetirizine HCl [Zyrtec 5 mg Tablet] 5 mg PO DAILY 01/31/18 Levothyroxine Sodium [Synthroid 0.088 mg Tablet] 0.088 mg PO Q6AM 01/31/18 Bifidobacterium Infantis [Align 4 mg Capsule] 1 cap PO DAILY 02/01/18 Cyanocobalamin (Vitamin B-12) [Vitamin B-12 Inj 1000 Mcg/1 ml Vial] 1,000 mcg IM .MONTHLY 02/01/18 Duloxetine HCl [Cymbalta 20 mg Capsule.dr] 20 mg PO QHS 02/01/18 Krill/Om-3/Dha/Epa/Phospho/Ast [Megared Cartwright-3 Krill Oil Sfgl] 1 each PO DAILY 02/01/18 Rivaroxaban [Xarelto 15 mg Tablet] 15 mg PO QHS 02/01/18 Rosuvastatin Calcium [Crestor 10 mg Tablet] 10 mg PO QHS 02/01/18 Sennosides/Docusate 8.6-50 mg [Senna Plus Tablet] 1 each PO BID #120 tablet 01/17 03/05 Allergies/Adverse Reactions: thimerosal [Thimerosal] Allergy (Unknown, Verified 03/21/11 09:19) adhesive tape [Adhesive Tape] Allergy (Verified 03/17/11 11:07) walker skin Review of Systems Constitutional: PRESENT: fatigue, weakness. ABSENT: chills, fever(s) Eyes: ABSENT: visual disturbances Ears: ABSENT: hearing changes Nose, Mouth, and Throat: ABSENT: sore throat Cardiovascular: ABSENT: chest pain Respiratory: PRESENT: cough, sputum. ABSENT: dyspnea Gastrointestinal: PRESENT: bloating, constipation. ABSENT: abdominal pain, nausea, vomiting Musculoskeletal: ABSENT: back pain Integumentary: ABSENT: pruritus, rash Neurological: ABSENT: confusion, convulsions, dizziness Psychiatric: ABSENT: anxiety, depression Endocrine: ABSENT: cold intolerance, heat intolerance Hematologic/Lymphatic: ABSENT: easy bleeding, easy bruising Physical Exam Vital Signs: Temp Pulse Resp BP Pulse Ox 98.3 F 83 18 166/68 H 96 02/07/18 11:13 02/07/18 12:02 02/07/18 12:02 02/07/18 11:13 02/07/18 12:02 Intake & Output 02/06/18 02/07/18 02/08/18 06:59 06:59 06:59 Intake Total 1565 935 Balance 1565 935 Weight 80.2 kg General appearance: PRESENT: no acute distress, cooperative Head exam: PRESENT: atraumatic, normocephalic Eye exam: PRESENT: EOMI, PERRLA. ABSENT: scleral icterus Mouth exam: PRESENT: moist, neck supple Neck exam: ABSENT: meningismus, tenderness, thyromegaly, tracheal deviation Respiratory exam: PRESENT: rhonchi, unlabored. ABSENT: accessory muscle use, chest wall tenderness Cardiovascular exam: PRESENT: RRR Pulses: PRESENT: normal radial pulses Vascular exam: PRESENT: normal capillary refill. ABSENT: pallor GI/Abdominal exam: PRESENT: distended. ABSENT: guarding, rebound, rigid, tenderness Rectal exam: PRESENT: fecal impaction, other - No gross blood. ABSENT: hemorrhoids Extremities exam: ABSENT: clubbing Neurological exam: PRESENT: alert, awake, oriented to person, oriented to place, oriented to time, oriented to situation, CN II-XII grossly intact Psychiatric exam: ABSENT: agitated, anxious, depressed Focused psych exam: ABSENT: delusional Skin exam: ABSENT: cyanosis, erythema, jaundice Results Laboratory Results: 02/07/18 03:52 02/07/18 03:52 02/06/18 02/06/18 02/06/18 20:40 20:40 20:40 WBC RBC Hgb Hct MCV MCH MCHC RDW Plt Count Seg Neutrophils % Lymphocytes % Monocytes % Eosinophils % Basophils % Absolute Neutrophils Absolute Lymphocytes Absolute Monocytes Absolute Eosinophils Absolute Basophils Carbonic Acid HCO3/H2CO3 Ratio ABG pH ABG pCO2 ABG pO2 ABG HCO3 ABG O2 Saturation ABG Base Excess FiO2 Sodium Potassium Chloride Carbon Dioxide Anion Gap BUN Creatinine Est GFR ( Amer) Est GFR (Non-Af Amer) Glucose Calcium Phosphorus 3.7 Magnesium 2.0 Total Bilirubin AST ALT Alkaline Phosphatase Ammonia < 8.7 L Total Protein Albumin Triglycerides Cholesterol LDL Cholesterol Direct VLDL Cholesterol HDL Cholesterol Amylase < 30 L Lipase 21.0 L TSH 0.24 L Free T4 0.83 Urine Color Urine Appearance Urine pH Ur Specific Girard Urine Protein Urine Glucose (UA) Urine Ketones Urine Blood Urine Nitrite Ur Leukocyte Esterase Urine WBC (Auto) Urine RBC (Auto) 02/06/18 02/07/18 02/07/18 20:45 03:52 03:52 WBC 9.4 RBC 3.91 Hgb 10.5 L Hct 32.7 L MCV 84 MCH 26.9 L MCHC 32.2 RDW 18.6 H Plt Count 622 H Seg Neutrophils % Not Reportable Lymphocytes % Not Reportable Monocytes % Not Reportable Eosinophils % Not Reportable Basophils % Not Reportable Absolute Neutrophils Not Reportable Absolute Lymphocytes Not Reportable Absolute Monocytes Not Reportable Absolute Eosinophils Not Reportable Absolute Basophils Not Reportable Carbonic Acid 1.19 HCO3/H2CO3 Ratio 25:1 ABG pH 7.50 H ABG pCO2 39.5 ABG pO2 75.6 L ABG HCO3 29.8 H ABG O2 Saturation 96.1 ABG Base Excess 6.1 FiO2 32% Sodium 132.7 L Potassium 4.3 Chloride 97 L Carbon Dioxide 27 Anion Gap 9 BUN 17 Creatinine 0.49 L Est GFR ( Amer) > 60 Est GFR (Non-Af Amer) > 60 Glucose 151 H Calcium 8.3 L Phosphorus Magnesium Total Bilirubin 0.6 AST 27 ALT 17 Alkaline Phosphatase 131 H Ammonia Total Protein 5.6 L Albumin 2.8 L Triglycerides 107 Cholesterol 61.80 LDL Cholesterol Direct 33 VLDL Cholesterol 21.0 HDL Cholesterol 23 L Amylase Lipase TSH Free T4 Urine Color Urine Appearance Urine pH Ur Specific Girard Urine Protein Urine Glucose (UA) Urine Ketones Urine Blood Urine Nitrite Ur Leukocyte Esterase Urine WBC (Auto) Urine RBC (Auto) 02/07/18 13:40 WBC RBC Hgb Hct MCV MCH MCHC RDW Plt Count Seg Neutrophils % Lymphocytes % Monocytes % Eosinophils % Basophils % Absolute Neutrophils Absolute Lymphocytes Absolute Monocytes Absolute Eosinophils Absolute Basophils Carbonic Acid HCO3/H2CO3 Ratio ABG pH ABG pCO2 ABG pO2 ABG HCO3 ABG O2 Saturation ABG Base Excess FiO2 Sodium Potassium Chloride Carbon Dioxide Anion Gap BUN Creatinine Est GFR ( Amer) Est GFR (Non-Af Amer) Glucose Calcium Phosphorus Magnesium Total Bilirubin AST ALT Alkaline Phosphatase Ammonia Total Protein Albumin Triglycerides Cholesterol LDL Cholesterol Direct VLDL Cholesterol HDL Cholesterol Amylase Lipase TSH Free T4 Urine Color STRAW Urine Appearance SLIGHTLY-CLOUDY Urine pH 6.0 Ur Specific Girard 1.005 Urine Protein NEGATIVE Urine Glucose (UA) NEGATIVE Urine Ketones NEGATIVE Urine Blood SMALL H Urine Nitrite NEGATIVE Ur Leukocyte Esterase MODERATE H Urine WBC (Auto) 37 Urine RBC (Auto) 1 02/06/18 02/06/18 02/06/18 14:20 20:40 20:40 Creatine Kinase 42 CK-MB (CK-2) 1.18 Troponin I < 0.012 < 0.012 02/07/18 02/07/18 02/07/18 03:52 03:52 10:50 Creatine Kinase 40 39 CK-MB (CK-2) 1.18 Troponin I < 0.012 02/07/18 10:50 Creatine Kinase CK-MB (CK-2) 0.99 Troponin I < 0.012 Impressions: Chest X-Ray 02/06/18 14:01 IMPRESSION: New heterogeneous opacity of the left lung base and loss of left diaphragmatic distinction, which may reflect atelectasis or developing airspace disease. Consider PA and lateral radiographs or CT to further evaluate as indicated by clinical concern. Abdomen/Pelvis CT 02/07/18 00:00 IMPRESSION: High-grade partial small bowel obstruction secondary to a partially obstructed loop of small bowel in at lower abdominal wall ventral hernia. KUB X-Ray 02/07/18 13:00 IMPRESSION: Nasogastric tube tip in the stomach. Assessment & Plan - Diagnosis (1) Abdominal distention Is this a current diagnosis for this admission?: Yes (2) Constipation Qualifiers: Constipation type: unspecified constipation type Qualified Code(s): K59.00 - Constipation, unspecified Is this a current diagnosis for this admission?: Yes - Plan Summary Plan Summary: This is an 87-year-old female recently status post hip surgery. The patient has progressive abdominal distention and severe constipation. Her bowels have not moved in more than 1 week. She is still passing flatus. I have reviewed her CT scan. The patient does not have any obvious transition zone. She has a large amount of stool and air inside the colon. This, accompanied by the continued passage of flatus argues against small bowel obstruction. An NG tube has been placed, for patient comfort. I will order enemas to be given in an effort to clear her colon of stool. Hopefully this will help resolve her abdominal distention. If not, an oral contrast study may be of benefit. On exam, I have not identified any findings that would require urgent surgical intervention. Specifically, there is no sign of peritonitis. I will continue to follow this patient very closely with you. The plan has been discussed with both the patient and her family.
[2018-02-07] MEDS: ENOXAPARIN SODIUM INJ 40 MG/0.4 ML DISP.SYRIN SUBCUT SCH (22:04)
[2018-02-08 05:21] LABS: ABSOLUTE LYMPHOCYTES (AUTO) 0.9 10^3/uL (0.5-4.7); ABSOLUTE MONOCYTES (AUTO) 0.6 10^3/uL (0.1-1.4); ABSOLUTE NEUT (AUTO) 6.5 10^3/uL (1.7-8.2); BASOPHILS % (AUTO) 0.3 % (0-2); EOSINOPHILS % (AUTO) 0.4 % (0-6); HEMATOCRIT 29.5 % (36.0-47.0); HEMOGLOBIN 9.6 g/dL (12.0-15.5); LYMPHOCYTES % (AUTO) 11.1 % (13-45); MEAN CORPUSCULAR HEMOGLOBIN 27.3 pg (27.0-33.4); MEAN CORPUSCULAR HGB CONC 32.7 g/dL (32.0-36.0); MEAN CORPUSCULAR VOLUME 83 fl (80-97); MONOCYTES % (AUTO) 7.7 % (3-13); PLATELET COUNT 489 10^3/uL (150-450); RED BLOOD COUNT 3.54 10^6/uL (3.72-5.28); RED CELL DISTRIBUTION WIDTH 18.5 % (11.5-14.0); SEGMENTED NEUTROPHILS % (AUTO) 80.5 % (42-78); TOTAL CELLS COUNTED % (AUTO) 100 %; WHITE BLOOD COUNT 8.1 10^3/uL (4.0-10.5)
[2018-02-08 05:34] LABS: ALANINE AMINOTRANSFERASE 15 U/L (9-52); ALBUMIN 2.6 g/dL (3.5-5.0); ALKALINE PHOSPHATASE 98 U/L (38-126); ANION GAP 6 (5-19); ASPARTATE AMINO TRANSFERASE 22 U/L (14-36); BILIRUBIN,DIRECT 0.3 mg/dL (0.0-0.4); BILIRUBIN,TOTAL 0.4 mg/dL (0.2-1.3); BLOOD UREA NITROGEN 16 mg/dL (7-20); CARBON DIOXIDE 29 mmol/L (22-30); CHLORIDE 99 mmol/L (98-107); GLUCOSE 134 mg/dL (75-110); POTASSIUM 3.7 mmol/L (3.6-5.0); TOTAL PROTEIN 5.5 g/dL (6.3-8.2)
--- NOTE | 2018-02-08 09:14 | PDOC PROGRESS REPORT ---
Subjective Progress Note for:: 02/08/18 Subjective:: pt had 2-3 large bm's last night now no c/o abd pain Reason For Visit: [facility] Physical Exam Vital Signs: Temp Pulse Resp BP Pulse Ox 98.9 F 91 18 146/75 H 98 02/08/18 04:13 02/08/18 04:13 02/08/18 04:13 02/08/18 04:13 02/08/18 04:13 Intake & Output 02/07/18 02/08/18 02/09/18 06:59 06:59 06:59 Intake Total 1565 1485 Output Total 1400 Balance 1565 85 Weight 80.2 kg 78.7 kg Respiratory exam: PRESENT: crackles - She has bilateral rhonchi and some mild expiratory wheezes, rhonchi, wheezes GI/Abdominal exam: PRESENT: hernia, normal bowel sounds, soft - On examination of the abdomen is soft now there is a palpable hernia with a previous mesh repair in the lower abdomen that is easily reducible there is positive bowel sounds she has had a number of bowel movements overnight Results Laboratory Results: 02/08/18 03:58 02/08/18 03:58 02/07/18 02/08/18 02/08/18 13:40 03:58 03:58 WBC 8.1 RBC 3.54 L Hgb 9.6 L Hct 29.5 L MCV 83 MCH 27.3 MCHC 32.7 RDW 18.5 H Plt Count 489 H Seg Neutrophils % 80.5 H Lymphocytes % 11.1 L Monocytes % 7.7 Eosinophils % 0.4 Basophils % 0.3 Absolute Neutrophils 6.5 Absolute Lymphocytes 0.9 Absolute Monocytes 0.6 Absolute Eosinophils 0.0 Absolute Basophils 0.0 Sodium 134.0 L Potassium 3.7 Chloride 99 Carbon Dioxide 29 Anion Gap 6 BUN 16 Creatinine 0.54 Est GFR ( Amer) > 60 Est GFR (Non-Af Amer) > 60 Glucose 134 H Calcium 8.0 L Total Bilirubin 0.4 AST 22 ALT 15 Alkaline Phosphatase 98 Total Protein 5.5 L Albumin 2.6 L Urine Color STRAW Urine Appearance SLIGHTLY-CLOUDY Urine pH 6.0 Ur Specific [place] 1.005 Urine Protein NEGATIVE Urine Glucose (UA) NEGATIVE Urine Ketones NEGATIVE Urine Blood SMALL H Urine Nitrite NEGATIVE Ur Leukocyte Esterase MODERATE H Urine WBC (Auto) 37 Urine RBC (Auto) 1 02/06/18 02/06/18 02/06/18 14:20 20:40 20:40 Creatine Kinase 42 CK-MB (CK-2) 1.18 Troponin I < 0.012 < 0.012 02/07/18 02/07/18 02/07/18 03:52 03:52 10:50 Creatine Kinase 40 39 CK-MB (CK-2) 1.18 Troponin I < 0.012 02/07/18 10:50 Creatine Kinase CK-MB (CK-2) 0.99 Troponin I < 0.012 Impressions: Chest X-Ray 02/06/18 14:01 IMPRESSION: New heterogeneous opacity of the left lung base and loss of left diaphragmatic distinction, which may reflect atelectasis or developing airspace disease. Consider PA and lateral radiographs or CT to further evaluate as indicated by clinical concern. Abdomen/Pelvis CT 02/07/18 00:00 IMPRESSION: High-grade partial small bowel obstruction secondary to a partially obstructed loop of small bowel in at lower abdominal wall ventral hernia. KUB X-Ray 02/07/18 13:00 IMPRESSION: Nasogastric tube tip in the stomach. Assessment & Plan - Diagnosis (1) Left lower lobe pneumonia Qualifiers: Pneumonia type: due to unspecified organism Qualified Code(s): J18.1 - Lobar pneumonia, unspecified organism Is this a current diagnosis for this admission?: Yes (2) Abdominal distention Is this a current diagnosis for this admission?: Yes - Time Time Spent with patient: 25-34 minutes - Plan Summary Plan Summary: Past surgical consult yesterday by Dr. Baron for constipation status post a hip surgery about a week ago and had not had a bowel movement in a week and return to the emergency room yesterday with abdominal distention and some pain a CT scan showed a possible small bowel obstruction Tod reviewed reviewed the CT scan did not feel it was a complete bowel obstruction and felt that may be secondary to constipation he gave enemas yesterday which resulted in large bowel movements today she had a CT scan there is a questionable her ventral hernia that on exam today is easily reducible. He still has an NG tube in place and put out about 500 cc last night this point I think the bowel obstruction is resolving plan keep the NG tube in additional day today check her follow-up KUB today Po left-sided pneumonia gross treated with antibiotics and respiratory treatments notes being followed by medicine will see her again tomorrow and pr obably remove the NG tube tomorrow if her exam continues to improve
[2018-02-08] MEDS ORDERED: LIDOCAINE 5% (700 MG) TRANSDERMAL ADH..PATCH TP SCH (10:00)
[2018-02-08] MEDS: CEFEPIME 1 GM/D5W RTU 1 GM/50 ML RTUPB IV SCH ×2 (10:13→22:39)
[2018-02-08] MEDS: LEVOTHYROXINE SODIUM INJ/PF 0.1 MG SDV IV SCH (10:14)
[2018-02-08] MEDS: IPRATROPIUM/ALBUTEROL 0.5-2.5 MG/3 ML AMPUL NEB PRN ×4 (10:38→23:58)
--- NOTE | 2018-02-08 12:20 | RADIOLOGY REPORT (SQ) ---
EXAM DESCRIPTION: KUB/ABDOMEN (SINGLE VIEW) COMPLETED DATE/TIME: 02/08/2018 12:07 pm REASON FOR STUDY: distention COMPARISON: CT abdomen pelvis 02/07/2018 KUB 02/07/2018 NUMBER OF VIEWS: One view. TECHNIQUE: Supine radiographic image of the abdomen acquired. LIMITATIONS: None. FINDINGS: BOWEL GAS PATTERN: Large amount of stool throughout the colon. Air-filled transverse colon, air-filled distended small bowel loops in the mid epigastrium. Stomach decompressed by a nasogastric tube with the tip and side-port in the gastric antrum. CALCIFICATIONS: No suspicious calcifications. SOFT TISSUES: No gross mass or suggestion of organomegaly. HARDWARE: Clips right upper quadrant post cholecystectomy. Left lower quadrant surgical clips post a bdominal hernia repair. Right lower quadrant surgical skin june are present BONES: No acute fracture. No worrisome bone lesions. Old right hip replacement OTHER: Weeks catheter in the bladder IMPRESSION: Large amount of stool throughout the colon. Stomach decompressed by nasogastric tube. Distended small bowel loops in the mid epigastrium. Abnormal but nonspecific bowel gas pattern. TECHNICAL DOCUMENTATION: JOB ID: [id number] [employer]- All Rights Reserved Reading location - IP/workstation name: [facility]
--- NOTE | 2018-02-08 16:33 | PDOC PROGRESS REPORT ---
Subjective Progress Note for:: 02/08/18 Subjective:: Patient seen by the bedside she is still n.p.o. NG tube to continuous suctioning, KUB showed stool throughout the length of the colon stomatch decompress small bowel distended Reason For Visit: [facility] Physical Exam Vital Signs: Temp Pulse Resp BP Pulse Ox 98.9 F 90 20 144/66 H 100 02/08/18 11:38 02/08/18 11:38 02/08/18 11:38 02/08/18 11:38 02/08/18 11:38 Intake & Output 02/07/18 02/08/18 02/09/18 06:59 06:59 06:59 Intake Total 1565 1485 Output Total 1400 Balance 1565 85 Weight 80.2 kg 78.7 kg General appearance: PRESENT: no acute distress Eye exam: PRESENT: PERRLA Respiratory exam: PRESENT: crackles Cardiovascular exam: PRESENT: +S1, +S2 GI/Abdominal exam: PRESENT: soft Neurological exam: PRESENT: alert Results Laboratory Results: 02/08/18 03:58 02/08/18 03:58 02/08/18 02/08/18 03:58 03:58 WBC 8.1 RBC 3.54 L Hgb 9.6 L Hct 29.5 L MCV 83 MCH 27.3 MCHC 32.7 RDW 18.5 H Plt Count 489 H Seg Neutrophils % 80.5 H Lymphocytes % 11.1 L Monocytes % 7.7 Eosinophils % 0.4 Basophils % 0.3 Absolute Neutrophils 6.5 Absolute Lymphocytes 0.9 Absolute Monocytes 0.6 Absolute Eosinophils 0.0 Absolute Basophils 0.0 Sodium 134.0 L Potassium 3.7 Chloride 99 Carbon Dioxide 29 Anion Gap 6 BUN 16 Creatinine 0.54 Est GFR ( Amer) > 60 Est GFR (Non-Af Amer) > 60 Glucose 134 H Calcium 8.0 L Total Bilirubin 0.4 AST 22 ALT 15 Alkaline Phosphatase 98 Total Protein 5.5 L Albumin 2.6 L 02/06/18 02/06/18 02/06/18 14:20 20:40 20:40 Creatine Kinase 42 CK-MB (CK-2) 1.18 Troponin I < 0.012 < 0.012 02/07/18 02/07/18 02/07/18 03:52 03:52 10:50 Creatine Kinase 40 39 CK-MB (CK-2) 1.18 Troponin I < 0.012 02/07/18 10:50 Creatine Kinase CK-MB (CK-2) 0.99 Troponin I < 0.012 Impressions: Chest X-Ray 02/06/18 14:01 IMPRESSION: New heterogeneous opacity of the left lung base and loss of left diaphragmatic distinction, which may reflect atelectasis or developing airspace disease. Consider PA and lateral radiographs or CT to further evaluate as forrest cated by clinical concern. Abdomen/Pelvis CT 02/07/18 00:00 IMPRESSION: High-grade partial small bowel obstruction secondary to a partially obstructed loop of small bowel in at lower abdominal wall ventral hernia. KUB X-Ray 02/08/18 06:00 IMPRESSION: Large amount of stool throughout the colon. Stomach decompressed by nasogastric tube. Distended small bowel loops in the mid epigastrium. Abnormal but nonspecific bowel gas pattern. Assessment & Plan - Diagnosis (1) Bilateral pneumonia Qualifiers: Pneumonia type: due to unspecified organism Lung location: unspecified part of lung Qualified Code(s): J18.9 - Pneumonia, unspecified organism Is this a current diagnosis for this admission?: Yes Plan: Continue IV antibiotic (2) Small bowel obstruction Is this a current diagnosis for this admission?: Yes Plan: Continue NG tube to suction (3) Hypoalbuminemia Is this a current diagnosis for this admission?: Yes (4) Status post closed fracture of right hip Is this a current diagnosis for this admission?: Yes (5) Hypothyroidism Qualifiers: Hypothyroidism type: unspecified Qualified Code(s): E03.9 - Hypothyroidism, unspecified Is this a current diagnosis for this admission?: Yes
[2018-02-08] MEDS: LEVOFLOXACIN 750 MG/D5W RTU 750 MG/150 ML RTUPB IV SCH (18:13)
[2018-02-08] MEDS: LIDOCAINE 5% (700 MG) TRANSDERMAL ADH..PATCH TP SCH (18:13)
[2018-02-08] MEDS: ENOXAPARIN SODIUM INJ 40 MG/0.4 ML DISP.SYRIN SUBCUT SCH (22:40)
[2018-02-09] MEDS: IPRATROPIUM/ALBUTEROL 0.5-2.5 MG/3 ML AMPUL NEB PRN ×2 (04:16→11:15)
[2018-02-09 05:20] LABS: ABSOLUTE EOSINOPHILS # (AUTO) 0.1 10^3/uL (0.0-0.6); ABSOLUTE LYMPHOCYTES (AUTO) 1.1 10^3/uL (0.5-4.7); ABSOLUTE MONOCYTES (AUTO) 0.7 10^3/uL (0.1-1.4); ABSOLUTE NEUT (AUTO) 7.4 10^3/uL (1.7-8.2); BASOPHILS % (AUTO) 0.5 % (0-2); HEMATOCRIT 31.5 % (36.0-47.0); HEMOGLOBIN 10.1 g/dL (12.0-15.5); LYMPHOCYTES % (AUTO) 11.9 % (13-45); MEAN CORPUSCULAR HEMOGLOBIN 26.8 pg (27.0-33.4); MEAN CORPUSCULAR VOLUME 84 fl (80-97); MONOCYTES % (AUTO) 7.8 % (3-13); PLATELET COUNT 448 10^3/uL (150-450); RED BLOOD COUNT 3.77 10^6/uL (3.72-5.28); RED CELL DISTRIBUTION WIDTH 18.7 % (11.5-14.0); SEGMENTED NEUTROPHILS % (AUTO) 78.8 % (42-78); TOTAL CELLS COUNTED % (AUTO) 100 %; WHITE BLOOD COUNT 9.4 10^3/uL (4.0-10.5)
[2018-02-09 05:46] LABS: ALANINE AMINOTRANSFERASE 17 U/L (9-52); ALBUMIN 2.5 g/dL (3.5-5.0); ALKALINE PHOSPHATASE 95 U/L (38-126); ANION GAP 7 (5-19); ASPARTATE AMINO TRANSFERASE 20 U/L (14-36); BILIRUBIN,DIRECT 0.3 mg/dL (0.0-0.4); BILIRUBIN,TOTAL 0.4 mg/dL (0.2-1.3); BLOOD UREA NITROGEN 12 mg/dL (7-20); CALCIUM 8.4 mg/dL (8.4-10.2); CARBON DIOXIDE 28 mmol/L (22-30); CHLORIDE 101 mmol/L (98-107); GLUCOSE 119 mg/dL (75-110); POTASSIUM 3.9 mmol/L (3.6-5.0); SODIUM 136.4 mmol/L (137-145); TOTAL PROTEIN 4.9 g/dL (6.3-8.2)
[2018-02-09] MEDS: PHARMACY COMMUNICATION ORDER MC SCH (06:49)
--- NOTE | 2018-02-09 09:50 | PDOC PROGRESS REPORT ---
Subjective Progress Note for:: 02/09/18 Reason For Visit: [facility] Physical Exam Vital Signs: Temp Pulse Resp BP Pulse Ox 98.0 F 92 18 134/45 H 97 02/09/18 08:00 02/09/18 08:00 02/09/18 08:00 02/09/18 08:00 02/09/18 08:00 Intake & Output 02/08/18 02/09/18 02/10/18 06:59 06:59 06:59 Intake Total 1485 250 Output Total 1400 900 Balance 85 -650 Weight 78.7 kg 81.3 kg GI/Abdominal exam: PRESENT: soft - Abdominal exam this morning remains soft she has a easily reducible ventral hernia no tenderness to palpation. NG-tube is put out minimal overnight. Results Laboratory Results: 02/09/18 04:53 02/09/18 04:53 02/09/18 02/09/18 04:53 04:53 WBC 9.4 RBC 3.77 Hgb 10.1 L Hct 31.5 L MCV 84 MCH 26.8 L MCHC 32.0 RDW 18.7 H Plt Count 448 Seg Neutrophils % 78.8 H Lymphocytes % 11.9 L Monocytes % 7.8 Eosinophils % 1.0 Basophils % 0.5 Absolute Neutrophils 7.4 Absolute Lymphocytes 1.1 Absolute Monocytes 0.7 Absolute Eosinophils 0.1 Absolute Basophils 0.0 Sodium 136.4 L Potassium 3.9 Chloride 101 Carbon Dioxide 28 Anion Gap 7 BUN 12 Creatinine 0.48 L Est GFR ( Amer) > 60 Est GFR (Non-Af Amer) > 60 Glucose 119 H Calcium 8.4 Total Bilirubin 0.4 AST 20 ALT 17 Alkaline Phosphatase 95 Total Protein 4.9 L Albumin 2.5 L 02/07/18 13:40 Clean Catch Midstream Urine Culture - Final NO GROWTH 2 DAYS 02/06/18 02/06/18 02/06/18 14:20 20:40 20:40 Creatine Kinase 42 CK-MB (CK-2) 1.18 Troponin I < 0.012 < 0.012 02/07/18 02/07/18 02/07/18 03:52 03:52 10:50 Creatine Kinase 40 39 CK-MB (CK-2) 1.18 Troponin I < 0.012 02/07/18 10:50 Creatine Kinase CK-MB (CK-2) 0.99 Troponin I < 0.012 Impressions: Chest X-Ray 02/06/18 14:01 IMPRESSION: New heterogeneous opacity of the left lung base and loss of left diaphragmatic distinction, which may reflect atelectasis or developing airspace disease. Consider PA and lateral radiographs or CT to further evaluate as indicated by clinical concern. Abdomen/Pelvis CT 02/07/18 00:00 IMPRESSION: High-grade partial small bowel obstruction secondary to a partially obstructed loop of small bowel in at lower abdominal wall ventral hernia. KUB X-Ray 02/08/18 06:00 IMPRESSION: Large amount of stool throughout the colon. Stomach decompressed by nasogastric tube. Distended small bowel loops in the mid epigastrium. Abnor mal but nonspecific bowel gas pattern. Assessment & Plan - Diagnosis (1) Left lower lobe pneumonia Qualifiers: Pneumonia type: due to unspecified organism Qualified Code(s): J18.1 - Lob ar pneumonia, unspecified organism Is this a current diagnosis for this admission?: Yes (2) Abdominal distention Is this a current diagnosis for this admission?: Yes - Plan Summary Plan Summary: Continues to have bowel movements. NG tube is only putting out minimal amounts serous fluid overnight The plan today will be to remove her NG tube and start her on clear liquid diet. The treatment of her pneumonia is being done by the medical doctors.
[2018-02-09] MEDS: LEVOTHYROXINE SODIUM INJ/PF 0.1 MG SDV IV SCH (09:55)
[2018-02-09] MEDS: CEFEPIME 1 GM/D5W RTU 1 GM/50 ML RTUPB IV SCH ×2 (09:55→21:40)
--- NOTE | 2018-02-09 14:33 | PDOC PROGRESS REPORT ---
Subjective Progress Note for:: 02/09/18 Subjective:: She was seen by the bedside she feels better, NG tube is pulled abdomen is soft Reason For Visit: [facility] Physical Exam Vital Signs: Temp Pulse Resp BP Pulse Ox 99.1 F 81 22 H 130/61 H 98 02/09/18 12:54 02/09/18 12:54 02/09/18 12:54 02/09/18 12:54 02/09/18 12:54 Intake & Output 02/08/18 02/09/18 02/10/18 06:59 06:59 06:59 Intake Total 1485 250 50 Output Total 1400 900 Balance 85 -650 50 Weight 78.7 kg 81.3 kg General appearance: PRESENT: no acute distress Eye exam: PRESENT: PERRLA Respiratory exam: PRESENT: rhonchi Cardiovascular exam: PRESENT: +S1, +S2 GI/Abdominal exam: PRESENT: soft Neurological exam: PRESENT: alert Results Laboratory Results: 02/09/18 04:53 02/09/18 04:53 02/09/18 02/09/18 04:53 04:53 WBC 9.4 RBC 3.77 Hgb 10.1 L Hct 31.5 L MCV 84 MCH 26.8 L MCHC 32.0 RDW 18.7 H Plt Count 448 Seg Neutrophils % 78.8 H Lymphocytes % 11.9 L Monocytes % 7.8 Eosinophils % 1.0 Basophils % 0.5 Absolute Neutrophils 7.4 Absolute Lymphocytes 1.1 Absolute Monocytes 0.7 Absolute Eosinophils 0.1 Absolute Basophils 0.0 Sodium 136.4 L Potassium 3.9 Chloride 101 Carbon Dioxide 28 Anion Gap 7 BUN 12 Creatinine 0.48 L Est GFR ( Amer) > 60 Est GFR (Non-Af Amer) > 60 Glucose 119 H Calcium 8.4 Total Bilirubin 0.4 AST 20 ALT 17 Alkaline Phosphatase 95 Total Protein 4.9 L Albumin 2.5 L 02/07/18 13:40 Clean Catch Midstream Urine Culture - Final NO GROWTH 2 DAYS 02/06/18 02/06/18 02/06/18 14:20 20:40 20:40 Creatine Kinase 42 CK-MB (CK-2) 1.18 Troponin I < 0.012 < 0.012 02/07/18 02/07/18 02/07/18 03:52 03:52 10:50 Creatine Kinase 40 39 CK-MB (CK-2) 1.18 Troponin I < 0.012 02/07/18 10:50 Creatine Kinase CK-MB (CK-2) 0.99 Troponin I < 0.012 Impressions: Chest X-Ray 02/06/18 14:01 IMPRESSION: New heterogeneous opacity of the left lung base and loss of left diaphragmatic distinction, which may reflect atelectasis or developing airspace disease. Consider PA and lateral radiographs or CT to further evaluate as indicated by clinical concern. Abdomen/Pelvis CT 02/07/18 00:00 IMPRESSION: High-grade partial small bowel obstruction secondary to a partially obstructed loop of small bowel in at lower abdominal wall ventral hernia. KUB X-Ray 02/08/18 06:00 IMPRESSION: Large amount of stool throughout the colon. Stomach decompressed b y nasogastric tube. Distended small bowel loops in the mid epigastrium. Abnormal but nonspecific bowel gas pattern. Assessment & Plan - Diagnosis (1) Bilateral pneumonia Qualifiers: Pneumonia type: due to unspecified organism Lung location: unspecified part of lung Qualified Code(s): J18.9 - Pneumonia, unspecified organism Is this a current diagnosis for this admission?: Yes (2) Small bowel obstruction Is this a current diagnosis for this admission?: Yes (3) Hypoalbuminemia Is this a current diagnosis for this admission?: Yes (4) Status post closed fracture of right hip Is this a current diagnosis for this admission?: Yes (5) Hypothyroidism Qualifiers: Hypothyroidism type: unspecified Qualified Code(s): E03.9 - Hypothyroidism, unspecified Is this a current diagnosis for this admission?: Yes - Plan Summary Plan Summary: Continue IV antibiotic start clear liquid diet
[2018-02-09] MEDS: LEVOFLOXACIN 750 MG/D5W RTU 750 MG/150 ML RTUPB IV SCH (17:56)
[2018-02-09] MEDS: LIDOCAINE 5% (700 MG) TRANSDERMAL ADH..PATCH TP SCH (17:56)
[2018-02-09] MEDS: ENOXAPARIN SODIUM INJ 40 MG/0.4 ML DISP.SYRIN SUBCUT SCH (21:38)
[2018-02-10] MEDS: PHARMACY COMMUNICATION ORDER MC SCH (06:19)
[2018-02-10] MEDS: CEFEPIME 1 GM/D5W RTU 1 GM/50 ML RTUPB IV SCH ×2 (09:42→21:26)
[2018-02-10] MEDS: LEVOTHYROXINE SODIUM INJ/PF 0.1 MG SDV IV SCH (09:52)
[2018-02-10] MEDS: IPRATROPIUM/ALBUTEROL 0.5-2.5 MG/3 ML AMPUL NEB PRN ×2 (14:19→23:56)
--- NOTE | 2018-02-10 17:53 | PDOC PROGRESS REPORT ---
Subjective Progress Note for:: 02/10/18 Subjective:: 87-year-old female with constipation and abdominal pain/distention. The patient was given an enema which worked very well. The patient's NG tube was discontinued yesterday. The patient is currently tolerating liquids. She denies abdominal pain. She reports that she has had multiple bowel movements. She denies chest pain, nausea, vomiting, melena, hematochezia, hematemesis, abdominal pain, headache, dizziness, malaise. She does report fatigue, cough, and mild shortness of breath. Reason For Visit: [facility] Physical Exam Vital Signs: Temp Pulse Resp BP Pulse Ox 98.7 F 76 24 H 124/44 L 100 02/10/18 12:32 02/10/18 12:32 02/10/18 12:32 02/10/18 12:32 02/10/18 12:32 Intake & Output 02/09/18 02/10/18 02/11/18 06:59 06:59 06:59 Intake Total 250 2257 50 Output Total 900 1200 Balance -650 1057 50 Weight 81.3 kg 81.3 kg General appearance: PRESENT: no acute distress, morbidly obese Head exam: PRESENT: atraumatic, normocephalic Eye exam: PRESENT: EOMI. ABSENT: scleral icterus Mouth exam: PRESENT: neck supple Neck exam: ABSENT: meningismus, tenderness, thyromegaly, tracheal deviation Respiratory exam: PRESENT: rhonchi, wheezes Pulses: PRESENT: normal radial pulses GI/Abdominal exam: PRESENT: soft. ABSENT: distended, firm, rebound, rigid, tenderness Extremities exam: ABSENT: clubbing Musculoskeletal exam: ABSENT: deformity Neurological exam: PRESENT: alert, awake, oriented to person, oriented to place, oriented to time, oriented to situation Psychiatric exam: ABSENT: agitated, anxious, depressed Focused psych exam: ABSENT: delusional Skin exam: ABSENT: cyanosis, erythema, jaundice Results Laboratory Results: 02/09/18 04:53 02/09/18 04:53 02/06/18 02/06/18 02/06/18 14:20 20:40 20:40 Creatine Kinase 42 CK-MB (CK-2) 1.18 Troponin I < 0.012 < 0.012 02/07/18 02/07/18 02/07/18 03:52 03:52 10:50 Creatine Kinase 40 39 CK-MB (CK-2) 1.18 Troponin I < 0.012 02/07/18 10:50 Creatine Kinase CK-MB (CK-2) 0.99 Troponin I < 0.012 Impressions: Chest X-Ray 02/06/18 14:01 IMPRESSION: New heterogeneous opacity of the left lung base and loss of left diaphragmatic distinction, which may reflect atelectasis or developing airspace disease. Consider PA and lateral radiographs or CT to further evaluate as indicated by clinical concern. Abdomen/Pelvis CT 02/07/18 00:00 IMPRESSION: High-grade partial small bowel obstruction secondary to a partially obstructed loop of small bowel in at lower abdominal wall ventral hernia. KUB X-Ray 02/08/18 06:00 IMPRESSION: Large amount of stool throughout the colon. Stomach decompressed by nasogastric tube. Distended small bowel loops in the mid epigastrium. Abnormal but nonspecific bowel gas pattern. Assessment & Plan - Diagnosis (1) Abdominal distention Is this a current diagnosis for this admission?: Yes (2) Constipation Qualifiers: Constipation type: unspecified constipation type Qualified Code(s): K59.00 - Constipation, unspecified Is this a current diagnosis for this admission?: Yes - Plan Summary Plan Summary: This is an 87-year-old female with constipation and abdominal distention. These have resolved. The patient is tolerating liquids and having bowel movements. Advance diet as tolerated. I will see her again on an as-needed basis. Please renotify with any questions or concerns.
[2018-02-10] MEDS: LIDOCAINE 5% (700 MG) TRANSDERMAL ADH..PATCH TP SCH (18:22)
[2018-02-10] MEDS: LEVOFLOXACIN 750 MG/D5W RTU 750 MG/150 ML RTUPB IV SCH (18:22)
--- NOTE | 2018-02-10 18:22 | PDOC PROGRESS REPORT ---
Subjective Progress Note for:: 02/10/18 Subjective:: Patient was admitted for possible HAP and partial small bowel obstruction due to ventral hernia. She reported some improvement with her breathing but still felt congestion in her chest with minimally productive cough. No chest pain. Remain on supplemental oxygen via nasal cannula. Tolerating clear liquid diet. No nausea or vomiting. Moving bowel movement. No fever or chills. Reason For Visit: [facility] Physical Exam Vital Signs: Temp Pulse Resp BP Pulse Ox 98.7 F 76 24 H 124/44 L 100 02/10/18 12:32 02/10/18 12:32 02/10/18 12:32 02/10/18 12:32 02/10/18 12:32 Intake & Output 02/09/18 02/10/18 02/11/18 06:59 06:59 06:59 Intake Total 250 2257 50 Output Total 900 1200 Balance -650 1057 50 Weight 81.3 kg 81.3 kg General appearance: PRESENT: mild distress - with supplemental oxygen via nasal cannula., morbidly obese Head exam: PRESENT: atraumatic, normocephalic Eye exam: PRESENT: conjunctiva pink, EOMI, PERRLA. ABSENT: scleral icterus Ear exam: PRESENT: normal external ear exam Mouth exam: PRESENT: moist Respiratory exam: PRESENT: crackles, decreased breath sounds Cardiovascular exam: PRESENT: irregular rhythm, +S1, +S2. ABSENT: diastolic murmur, systolic murmur Vascular exam: PRESENT: normal capillary refill. ABSENT: pallor GI/Abdominal exam: PRESENT: normal bowel sounds, soft. ABSENT: distended, guarding, mass, organolmegaly, rebound, tenderness Extremities exam: PRESENT: pedal edema Neurological exam: PRESENT: alert, awake Psychiatric exam: PRESENT: appropriate affect, normal mood. ABSENT: homicidal ideation, suicidal ideation Skin exam: PRESENT: dry, warm Results Laboratory Results: 02/09/18 04:53 02/09/18 04:53 02/06/18 02/06/18 02/06/18 14:20 20:40 20:40 Creatine Kinase 42 CK-MB (CK-2) 1.18 Troponin I < 0.012 < 0.012 02/07/18 02/07/18 02/07/18 03:52 03:52 10:50 Creatine Kinase 40 39 CK-MB (CK-2) 1.18 Troponin I < 0.012 02/07/18 10:50 Creatine Kinase CK-MB (CK-2) 0.99 Troponin I < 0.012 Impressions: Chest X-Ray 02/06/18 14:01 IMPRESSION: New heterogeneous opacity of the left lung base and loss of left diaphragmatic distinction, which may reflect atelectasis or developing airspace disease. Consider PA and lateral radiographs or CT to further evaluate as indicated by clinical concern. Abdomen/Pelvis CT 02/07/18 00:00 IMPRESSION: High-grade partial small bowel obstruction secondary to a partially obstructed loop of small bowel in at lower abdominal wall ventral hernia. KUB X-Ray 02/08/18 06:00 IMPRESSION: Large amount of stool throughout the colon. Stomach decompressed by nasogastric tube. Distended small bowel loops in the mid epigastrium. Abnormal but nonspecific bowel gas pattern. Assessment & Plan - Diagnosis (1) Bilateral pneumonia Qualifiers: Pneumonia type: due to unspecified organism Lung location: unspecified part of lung Qualified Code(s): J18.9 - Pneumonia, unspecified organism Is this a current diagnosis for this admission?: Yes Plan: Continue IV Cefepime and Levofloxacin coverage. Encouraged use of bedside incentive spirometry and flutter devices to aide pulmonary toileting and clearance. Obtain sputum for gram stain and culture. (2) Small bowel obstruction Is this a current diagnosis for this admission?: Yes Plan: Currently off NGT suction intervention. Reported several bowel movement. Advance diet to full liquid tomorrow. (3) Status post closed fracture of right hip Is this a current diagnosis for this admission?: Yes Plan: Continue rehabilitative therapy as she improve and tolerate clinically. (4) Chronic atrial fibrillation Is this a current diagnosis for this admission?: Yes Plan: Maintain on all related therapy at this time. (5) Hypertension Qualifiers: Hypertension type: essential hypertension Qualified Code(s): I10 - Es sential (primary) hypertension Is this a current diagnosis for this admission?: Yes Plan: Continue current medication management. (6) Hypothyroidism Qualifiers: Hypothyroidism type: acquired Qualified Code(s): E03.9 - Hypothyroidism, unspecified Is this a current diagnosis for this admission?: Yes Plan: Continue current medication management. (7) Osteoarthritis involving multiple 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 of body Is this a current diagnosis for this admission?: Yes Plan: Continue current medication management. (8) Vitamin B 12 deficiency Is this a current diagnosis for this admission?: Yes Plan: Continue current medication management. - Time Time Spent with patient: 25-34 minutes Medications reviewed and adjusted accordingly: Yes Anticipated discharge: SNF - for continue need for physical and occupational rehabilitation Within: Other - Inpatient Certification Based on my medical assessment, after consideration of the patient's comorbidities, presenting symptoms, or acuity I expect that the services needed warrant INPATIENT care.: Yes I certify that my determination is in accordance with my understanding of Medicare's requirements for reasonable and necessary INPATIENT services [42 CFR 412.3e].: Yes Medical Necessity: Need Close Monitoring Due to Risk of Patient Decompensation, Need For IV Fluids, Need For Continuous Telemetry Monitoring, Need for Nebulizer Therapy and Monitoring of Response, Need for IV Antibiotics, Risk of Complication if Not Cared For in Hospital Post Hospital Care: D/C or Transfer Summary - Plan Summary Plan Summary: See attending physician orders as per outline care plan.
[2018-02-10] MEDS: ENOXAPARIN SODIUM INJ 40 MG/0.4 ML DISP.SYRIN SUBCUT SCH (21:25)
[2018-02-11] MEDS: PHARMACY COMMUNICATION ORDER MC SCH (05:50)
[2018-02-11 06:20] LABS: ABSOLUTE EOSINOPHILS # (AUTO) 0.2 10^3/uL (0.0-0.6); ABSOLUTE LYMPHOCYTES (AUTO) 1.4 10^3/uL (0.5-4.7); ABSOLUTE MONOCYTES (AUTO) 0.8 10^3/uL (0.1-1.4); ABSOLUTE NEUT (AUTO) 5.6 10^3/uL (1.7-8.2); BASOPHILS % (AUTO) 0.4 % (0-2); EOSINOPHILS % (AUTO) 2.3 % (0-6); HEMATOCRIT 29.9 % (36.0-47.0); HEMOGLOBIN 9.7 g/dL (12.0-15.5); LYMPHOCYTES % (AUTO) 17.8 % (13-45); MEAN CORPUSCULAR HEMOGLOBIN 26.9 pg (27.0-33.4); MEAN CORPUSCULAR HGB CONC 32.4 g/dL (32.0-36.0); MEAN CORPUSCULAR VOLUME 83 fl (80-97); MONOCYTES % (AUTO) 10.2 % (3-13); PLATELET COUNT 399 10^3/uL (150-450); RED CELL DISTRIBUTION WIDTH 18.3 % (11.5-14.0); SEGMENTED NEUTROPHILS % (AUTO) 69.3 % (42-78); TOTAL CELLS COUNTED % (AUTO) 100 %; WHITE BLOOD COUNT 8.1 10^3/uL (4.0-10.5)
[2018-02-11 06:41] LABS: ALANINE AMINOTRANSFERASE 16 U/L (9-52); ALBUMIN 2.3 g/dL (3.5-5.0); ALKALINE PHOSPHATASE 87 U/L (38-126); ANION GAP 7 (5-19); ASPARTATE AMINO TRANSFERASE 23 U/L (14-36); BILIRUBIN,DIRECT 0.3 mg/dL (0.0-0.4); BILIRUBIN,TOTAL 0.4 mg/dL (0.2-1.3); BLOOD UREA NITROGEN 10 mg/dL (7-20); CALCIUM 8.1 mg/dL (8.4-10.2); CARBON DIOXIDE 25 mmol/L (22-30); CHLORIDE 103 mmol/L (98-107); GLUCOSE 127 mg/dL (75-110); POTASSIUM 3.5 mmol/L (3.6-5.0); SODIUM 134.8 mmol/L (137-145); TOTAL PROTEIN 4.7 g/dL (6.3-8.2)
[2018-02-11] MEDS: CEFEPIME 1 GM/D5W RTU 1 GM/50 ML RTUPB IV SCH (10:50)
[2018-02-11] MEDS: LEVOTHYROXINE SODIUM INJ/PF 0.1 MG SDV IV SCH (10:50)
[2018-02-11] MEDS: LIDOCAINE 5% (700 MG) TRANSDERMAL ADH..PATCH TP SCH (18:51)
[2018-02-11] MEDS: LEVOFLOXACIN 750 MG/D5W RTU 750 MG/150 ML RTUPB IV SCH (18:51)
--- NOTE | 2018-02-11 19:34 | PDOC PROGRESS REPORT ---
Subjective Progress Note for:: 02/11/18 Subjective:: Patient reported some improvement in her breathing but continue to experience productive cough. Remain on supplemental oxygen via nasal cannula. No chest pain. Tolerating clear liquid diet. Patient reported frequent diarrhea. No abdominal pain, nausea or vomiting. No fever or chills. Reason For Visit: [facility] Physical Exam Vital Signs: Temp Pulse Resp BP Pulse Ox 98.2 F 70 20 120/65 98 02/11/18 12:00 02/11/18 12:00 02/11/18 12:00 02/11/18 12:00 02/11/18 16:05 Intake & Output 02/10/18 02/11/18 02/12/18 06:59 06:59 06:59 Intake Total 2257 1100 50 Output Total 1200 475 Balance 1057 625 50 Weight 81.3 kg 81.6 kg 81.6 kg Physical Exam: General appearance: PRESENT: mild distress - with supplemental oxygen via nasal cannula., morbidly obese Head exam: PRESENT: atraumatic, normocephalic Eye exam: PRESENT: conjunctiva pink, EOMI, PERRLA. ABSENT: pallor, scleral icterus Ear exam: PRESENT: normal external ear exam Mouth exam: PRESENT: moist Respiratory exam: PRESENT: crackles, decreased breath sounds Cardiovascular exam: PRESENT: irregular rhythm, +S1, +S2. ABSENT: diastolic murmur, systolic murmur GI/Abdominal exam: PRESENT: normal bowel sounds, soft. ABSENT: distended, guarding, mass, organomegaly, rebound, tenderness Extremities exam: PRESENT: pedal edema Neurological exam: PRESENT: alert, awake Psychiatric exam: PRESENT: appropriate affect, normal mood. ABSENT: homicidal ideation, suicidal ideation Skin exam: PRESENT: dry, warm Results Laboratory Results: 02/11/18 05:24 02/11/18 05:24 02/11/18 02/11/18 05:24 05:24 WBC 8.1 RBC 3.60 L Hgb 9.7 L Hct 29.9 L MCV 83 MCH 26.9 L MCHC 32.4 RDW 18.3 H Plt Count 399 Seg Neutrophils % 69.3 Lymphocytes % 17.8 Monocytes % 10.2 Eosinophils % 2.3 Basophils % 0.4 Absolute Neutrophils 5.6 Absolute Lymphocytes 1.4 Absolute Monocytes 0.8 Absolute Eosinophils 0.2 Absolute Basophils 0.0 Sodium 134.8 L Potassium 3.5 L Chloride 103 Carbon Dioxide 25 Anion Gap 7 BUN 10 Creatinine 0.44 L Est GFR ( Amer) > 60 Est GFR (Non-Af Amer) > 60 Glucose 127 H Calcium 8.1 L Total Bilirubin 0.4 AST 23 ALT 16 Alkaline Phosphatase 87 Total Protein 4.7 L Albumin 2.3 L 02/06/18 16:13 Blood Blood Culture - Final NO GROWTH IN 5 DAYS 02/06/18 14:20 Blood Blood Culture - Final NO GROWTH IN 5 DAYS 02/06/18 02/06/18 02/06/18 14:20 20:40 20:40 Creatine Kinase 42 CK-MB (CK-2) 1.18 Troponin I < 0.012 < 0.012 02/07/18 02/07/18 02/07/18 03:52 03:52 10:50 Creatine Kinase 40 39 CK-MB (CK-2) 1.18 Troponin I < 0.012 02/07/18 10:50 Creatine Kinase CK-MB (CK-2) 0.99 Troponin I < 0.012 Impressions: Chest X-Ray 02/06/18 14:01 IMPRESSION: New heterogeneous opacity of the left lung base and loss of left diaphragmatic distinction, which may reflect atelectasis or developing airspace disease. Consider PA and lateral radiographs or CT to further evaluate as indicated by clinical concern. Abdomen/Pelvis CT 02/07/18 00:00 IMPRESSION: High-grade partial small bowel obstruction secondary to a partially obstructed loop of small bowel in at lower abdominal wall ventral hernia. KUB X-Ray 02/08/18 06:00 IMPRESSION: Large amount of stool throughout the colon. Stomach decompressed by nasogastric tube. Distended small bowel loops in the mid epigastrium. Abnormal but nonspecific bowel gas pattern. Assessment & Plan - Diagnosis (1) Bilateral pneumonia Qualifiers: Pneumonia type: due to unspecified organism Lung location: unspecified part of lung Qualified Code(s): J18.9 - Pneumonia, unspecified organism Is this a current diagnosis for this admission?: Yes (2) Small bowel obstruction Is this a current diagnosis for this admission?: Yes (3) Status post closed fracture of right hip Is this a current diagnosis for this admission?: Yes (4) Chronic atrial fibrillation Is this a current diagnosis for this admission?: Yes (5) Hypertension Qualifiers: Hypertension type: essential hypertension Qualified Code(s): I10 - Essenti al (primary) hypertension Is this a current diagnosis for this admission?: Yes (6) Hypothyroidism Qualifiers: Hypothyroidism type: acquired Qualified Code(s): E03.9 - Hypothyroidism, unspecified Is this a current diagnosis for this admission?: Yes (7) Osteoarthritis involving multiple 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 of body Is this a current diagnosis for this admission?: Yes (8) Vitamin B 12 deficiency Is this a current diagnosis for this admission?: Yes - Time Time Spent with patient: 25-34 minutes Medications reviewed and adjusted accordingly: Yes Anticipated discharge: SNF - for continue short term rehabilitation. - Inpatient Certification Based on my medical assessment, after consideration of the patient's comorbidities, presenting symptoms, or acuity I expect that the services needed warrant INPATIENT care.: Yes I certify that my determination is in accordance with my understanding of Medicare's requirements for reasonable and necessary INPATIENT services [42 CFR 412.3e].: Yes Medical Necessity: Need Close Monitoring Due to Risk of Patient Decompensation, Need For IV Fluids, Need For Continuous Telemetry Monitoring, Need for Nebulizer Therapy and Monitoring of Response, Need for IV Antibiotics, Risk of Complication if Not Cared For in Hospital Post Hospital Care: D/C or Transfer Summary - Plan Summary Plan Summary: Continue IV Cefepime and Levofloxacin coverage. Follow up on sputum evaluation. Start on Lactobacillus 250 mg p.o bid. Patient will receive oral potassium replacement therapy. Obtain serum Mag level. Obtain CBC with diff, BMP in am.
[2018-02-11] MEDS ORDERED: LACTOBACILLUS ACIDOPHILUS 250 MG TAB PO SCH (19:45)
[2018-02-11] MEDS: IPRATROPIUM/ALBUTEROL 0.5-2.5 MG/3 ML AMPUL NEB PRN (20:01)
[2018-02-12] MEDS: POTASSIUM CHLORIDE 10 MEQ CAPSULE.ER PO SCH ×3 (00:42→06:56)
[2018-02-12] MEDS ORDERED: LACTOBACILLUS ACIDOPHILUS 250 MG TAB PO ONE (00:45)
[2018-02-12] MEDS: CEFEPIME 1 GM/D5W RTU 1 GM/50 ML RTUPB IV SCH ×3 (00:52→22:30)
[2018-02-12] MEDS: ENOXAPARIN SODIUM INJ 40 MG/0.4 ML DISP.SYRIN SUBCUT SCH ×2 (00:52→22:30)
[2018-02-12 05:10] LABS: HEMATOCRIT 27.8 % (36.0-47.0); HEMOGLOBIN 9.1 g/dL (12.0-15.5); MEAN CORPUSCULAR HEMOGLOBIN 27.1 pg (27.0-33.4); MEAN CORPUSCULAR HGB CONC 32.8 g/dL (32.0-36.0); MEAN CORPUSCULAR VOLUME 83 fl (80-97); PLATELET COUNT 342 10^3/uL (150-450); RED BLOOD COUNT 3.36 10^6/uL (3.72-5.28); RED CELL DISTRIBUTION WIDTH 18.1 % (11.5-14.0); WHITE BLOOD COUNT 7.6 10^3/uL (4.0-10.5)
[2018-02-12 05:35] LABS: ABSOLUTE LYMPHOCYTES# (MANUAL) 2.1 10^3/uL (0.5-4.7); ABSOLUTE MONOCYTES # (MANUAL) 0.2 10^3/uL (0.1-1.4); ANISOCYTOSIS 1+; BAND NEUTROPHILS % (MANUAL) 3 % (3-5); BASOPHILS % (MANUAL) 3 % (0-2); EOSINOPHILS % (MANUAL) 2 % (0-6); LYMPHOCYTES % (MANUAL) 27 % (13-45); MONOCYTES % (MANUAL) 2 % (3-13); SEGMENTED NEUTROPHILS % (MAN) 63 % (42-78); TOTAL CELLS COUNTED 100
[2018-02-12 05:36] LABS: OVALOCYTES SLIGHT; PLATELET COMMENT ADEQUATE; POIKILOCYTOSIS SLIGHT; POLYCHROMASIA SLIGHT
[2018-02-12 05:43] LABS: ANION GAP 6 (5-19); BLOOD UREA NITROGEN 9 mg/dL (7-20); CALCIUM 7.8 mg/dL (8.4-10.2); CARBON DIOXIDE 26 mmol/L (22-30); CHLORIDE 104 mmol/L (98-107); GLUCOSE 121 mg/dL (75-110); POTASSIUM 3.6 mmol/L (3.6-5.0); SODIUM 135.6 mmol/L (137-145)
[2018-02-12] MEDS: PHARMACY COMMUNICATION ORDER MC SCH (07:03)
[2018-02-12] MEDS: LACTOBACILLUS ACIDOPHILUS 250 MG TAB PO SCH ×2 (09:46→17:14)
[2018-02-12] MEDS: LEVOTHYROXINE SODIUM INJ/PF 0.1 MG SDV IV SCH (09:58)
[2018-02-12] MEDS: IPRATROPIUM/ALBUTEROL 0.5-2.5 MG/3 ML AMPUL NEB PRN ×3 (10:36→23:45)
[2018-02-12] MEDS: LIDOCAINE 5% (700 MG) TRANSDERMAL ADH..PATCH TP SCH (17:13)
[2018-02-12] MEDS: LEVOFLOXACIN 750 MG/D5W RTU 750 MG/150 ML RTUPB IV SCH (17:14)
--- NOTE | 2018-02-12 18:02 | PDOC PROGRESS REPORT ---
Subjective Progress Note for:: 02/12/18 Subjective:: Patient reported continued diarrhea although she started on Probiotic yesterday. Tolerating full liquid diet. No abdominal pain, nausea or vomiting. No chest pain. some improvement in her breathing but continue to experience productive cough. Remain on supplemental oxygen via nasal cannula. No fever or chills. Reason For Visit: [facility] Physical Exam Vital Signs: Temp Pulse Resp BP Pulse Ox 97.9 F 95 20 147/59 H 93 02/12/18 15:31 02/12/18 17:08 02/12/18 17:08 02/12/18 15:31 02/12/18 17:08 Intake & Output 02/11/18 02/12/18 02/13/18 06:59 06:59 06:59 Intake Total 1100 1976 527 Output Total 475 350 360 Balance 625 1626 167 Weight 81.6 kg 99.4 kg Physical Exam: General appearance: PRESENT: mild distress - with supplemental oxygen via nasal cannula., morbidly obese Head exam: PRESENT: atraumatic, normocephalic Eye exam: PRESENT: conjunctiva pink, EOMI, PERRLA. ABSENT: pallor, scleral icterus Ear exam: PRESENT: normal external ear exam Mouth exam: PRESENT: moist Respiratory exam: PRESENT: crackles, decreased breath sounds Cardiovascular exam: PRESENT: irregular rhythm, +S1, +S2. ABSENT: diastolic murmur, systolic murmur GI/Abdominal exam: PRESENT: normal bowel sounds, soft. ABSENT: distended, guarding, mass, organomegaly, rebound, tenderness Extremities exam: PRESENT: less pedal edema Neurological exam: PRESENT: alert, awake Psychiatric exam: PRESENT: appropriate affect, normal mood. ABSENT: homicidal ideation, suicidal ideation Skin exam: PRESENT: dry, warm Results Laboratory Results: 02/12/18 04:00 02/12/18 04:00 02/11/18 02/12/18 02/12/18 05:24 04:00 04:00 WBC 7.6 RBC 3.36 L Hgb 9.1 L Hct 27.8 L MCV 83 MCH 27.1 MCHC 32.8 RDW 18.1 H Plt Count 342 Seg Neutrophils % Not Reportable Lymphocytes % Not Reportable Monocytes % Not Reportable Eosinophils % Not Reportable Basophils % Not Reportable Absolute Neutrophils Not Reportable Absolute Lymphocytes Not Reportable Absolute Monocytes Not Reportable Absolute Eosinophils Not Reportable Absolute Basophils Not Reportable Sodium 135.6 L Potassium 3.6 Chloride 104 Carbon Dioxide 26 Anion Gap 6 BUN 9 Creatinine 0.42 L Est GFR ( Amer) > 60 Est GFR (Non-Af Amer) > 60 Glucose 121 H Calcium 7.8 L Magnesium 2.0 02/11/18 11:37 Sputum Gram Stain - Final 02/11/18 11:37 Sputum Sputum Culture - Final C.albicans/C.dubliniensis Normal Satya Absent 02/06/18 16:13 Blood Blood Culture - Final NO GROWTH IN 5 DAYS 02/06/18 14:20 Blood Blood Culture - Final NO GROWTH IN 5 DAYS 02/06/18 02/06/18 02/06/18 14:20 20:40 20:40 Creatine Kinase 42 CK-MB (CK-2) 1.18 Troponin I < 0.012 < 0.012 02/07/18 02/07/18 02/07/18 03:52 03:52 10:50 Creatine Kinase 40 39 CK-MB (CK-2) 1.18 Troponin I < 0.012 02/07/18 10:50 Creatine Kinase CK-MB (CK-2) 0.99 Troponin I < 0.012 Impressions: Chest X-Ray 02/06/18 14:01 IMPRESSION: New heterogeneous opacity of the left lung base and loss of left diaphragmatic distinction, which may reflect atelectasis or developing airspace disease. Consider PA and lateral radiographs or CT to further evaluate as indicated by clinical concern. Abdomen/Pelvis CT 02/07/18 00:00 IMPRESSION: High-grade partial small bowel obstruction secondary to a partially obstructed loop of small bowel in at lower abdominal wall ventral hernia. KUB X-Ray 02/08/18 06:00 IMPRESSION: Large amount of stool throughout the colon. Stomach decompressed by nasogastric tube. Distended small bowel loops in the mid epigastrium. Abnormal but nonspecific bowel gas pattern. Assessment & Plan - Diagnosis (1) Bilateral pneumonia Qualifiers: Pneumonia type: due to unspecified organism Lung location: unspecified part of lung Qualified Code(s): J18.9 - Pneumonia, unspecified organism Is this a current diagnosis for this admission?: Yes (2) Small bowel obstruction Is this a current diagnosis for this admission?: Yes (3) Status post closed fracture of right hip Is this a current diagnosis for this admission?: Yes (4) Chronic atrial fibrillation Is this a current diagnosis for this admission?: Yes (5) Hypertension Qualifiers: Hypertension type: essential hypertension Qualified Code(s): I10 - Essential (primary) hypertension Is this a current diagnosis for this admission?: Yes (6) Hypothyroidism Qualifiers: Hypothyroidism type: acquired Qualified Code(s): E03.9 - Hypothyroidism, unspecified Is this a current diagnosis for this admission?: Yes (7) Osteoarthritis involving multiple 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 of body Is this a current diagnosis for this admission?: Yes (8) Vitamin B 12 deficiency Is this a current diagnosis for this admission?: Yes (9) Antibiotic-associated diarrhea Is this a current diagnosis for this admission?: Yes Plan: Continue Probiotic therapy. Obtain stool C. difficile toxin titer. - Time Time Spent with patient: 25-34 minutes Medications reviewed and adjusted accordingly: Yes Anticipated discharge: SNF Within: Other - Inpatient Certification Based on my medical assessment, after consideration of the patient's comorbidities, presenting symptoms, or acuity I expect that the services needed warrant INPATIENT care.: Yes I certify that my determination is in accordance with my understanding of Medicare's requirements for reasonable and necessary INPATIENT services [42 CFR 412.3e].: Yes Medical Necessity: Need For IV Fluids, Need For Continuous Telemetry Monitoring, Need for IV Antibiotics, Risk of Complication if Not Cared For in Hospital Post Hospital Care: D/C or Transfer Summary - Plan Summary Plan Summary: Continue current medication management. Sputum finding of budding yeast may be consequence of colonization but in view of absence of normal satya, I will add oral Diflucan to her medication management.
[2018-02-12] MEDS: FLUCONAZOLE 100 MG TABLET PO SCH (18:36)
[2018-02-12] MEDS: METRONIDAZOLE 500 MG TABLET PO SCH (23:10)
[2018-02-13] MEDS: PHARMACY COMMUNICATION ORDER MC SCH (06:00)
[2018-02-13] MEDS: METRONIDAZOLE 500 MG TABLET PO SCH ×3 (06:00→21:56)
[2018-02-13] MEDS: CEFEPIME 1 GM/D5W RTU 1 GM/50 ML RTUPB IV SCH (09:31)
[2018-02-13] MEDS: LACTOBACILLUS ACIDOPHILUS 250 MG TAB PO SCH ×2 (09:31→17:34)
[2018-02-13] MEDS: LEVOTHYROXINE SODIUM INJ/PF 0.1 MG SDV IV SCH (09:31)
--- NOTE | 2018-02-13 13:13 | PDOC PROGRESS REPORT ---
Subjective Progress Note for:: 02/13/18 Subjective:: Patient was admitted in the hospital for the pneumonia pneumonia and a small bowel obstruction and currently diagnosed with the C. difficile Patient's was put on the Flagyl last night Patient's still having some cough and congestions but no fever Patient had an episode of the one diarrhea this morning Patient is denied any abdominal pain no nausea no vomiting Reason For Visit: [facility] Physical Exam Vital Signs: Temp Pulse Resp BP Pulse Ox 98.3 F 78 16 125/55 L 93 02/13/18 08:08 02/13/18 08:08 02/13/18 08:08 02/13/18 08:08 02/13/18 08:08 Intake & Output 02/12/18 02/13/18 02/14/18 06:59 06:59 06:59 Intake Total 1976 727 50 Output Total 350 786 Balance 1626 -59 50 Weight 99.4 kg 102.6 kg General appearance: PRESENT: no acute distress, well-developed, well-nourished Head exam: PRESENT: atraumatic, normocephalic Eye exam: PRESENT: conjunctiva pink, EOMI, PERRLA. ABSENT: scleral icterus Ear exam: PRESENT: normal external ear exam Mouth exam: PRESENT: moist, tongue midline Neck exam: PRESENT: full ROM. ABSENT: carotid bruit, JVD, lymphadenopathy, thyromegaly Respiratory exam: PRESENT: clear to auscultation mendoza Cardiovascular exam: PRESENT: RRR. ABSENT: diastolic murmur, rubs, systolic murmur Pulses: PRESENT: normal dorsalis pedis pul, +2 pedal pulses bilateral Vascular exam: PRESENT: normal capillary refill GI/Abdominal exam: PRESENT: normal bowel sounds, soft. ABSENT: distended, guarding, mass, organolmegaly, rebound, tenderness Rectal exam: PRESENT: deferred Neurological exam: PRESENT: alert, awake, oriented to person, oriented to place, oriented to time, oriented to situation. ABSENT: motor sensory deficit Psychiatric exam: PRESENT: appropriate affect, normal mood. ABSENT: homicidal ideation, suicidal ideation Skin exam: PRESENT: dry, intact, warm. ABSENT: cyanosis, rash Results Laboratory Results: 02/12/18 04:00 02/12/18 04:00 02/11/18 11:37 Sputum Gram Stain - Final 02/11/18 11:37 Sputum Sputum Culture - Final C.albicans/C.dubliniensis Normal Lyssa Absent 02/06/18 02/06/18 02/06/18 14:20 20:40 20:40 Creatine Kinase 42 CK-MB (CK-2) 1.18 Troponin I < 0.012 < 0.012 02/07/18 02/07/18 02/07/18 03:52 03:52 10:50 Creatine Kinase 40 39 CK-MB (CK-2) 1.18 Troponin I < 0.012 02/07/18 10:50 Creatine Kinase CK-MB (CK-2) 0.99 Troponin I < 0.012 Impressions: Chest X-Ray 02/06/18 14:01 IMPRESSION: New heterogeneous opacity of the left lung base and loss of left diaphragmatic distinction, which may reflect atelectasis or developing airspace disease. Consider PA and lateral radiographs or CT to further evaluate as indicated by clinical concern. Abdomen/Pelvis CT 02/07/18 00:00 IMPRESSION: High-grade partial small bowel obstruction secondary to a partially obstructed loop of small bowel in at lower abdominal wall ventral hernia. KUB X-Ray 02/08/18 06:00 IMPRESSION: Large amount of stool throughout the colon. Stomach decompressed by nasogastric tube. Distended small bowel loops in the mid epigastrium. Abnormal but nonspecific bowel gas pattern. Assessment & Plan - Diagnosis (1) C. difficile colitis Is this a current diagnosis for this admission?: Yes Plan: Use of p.o. Flagyl (2) Bilateral pneumonia Qualifiers: Pneumonia type: due to unspecified organism Lung location: unspecified part of lung Qualified Code(s): J18.9 - Pneumonia, unspecified organism Is this a current diagnosis for this admission?: Yes Plan: Will get the IV Levaquin stop the cefepime will check the sputum culture and repeat the chest x-ray (3) Small bowel obstruction Is this a current diagnosis for this admission?: Yes Plan: Currently all resolved (4) Chronic atrial fibrillation Is this a current diagnosis for this admission?: Yes (5) Hypothyroidism Qualifiers: Hypothyroidism type: acquired Qualified Code(s): E03.9 - Hypothyroidism, unspecified Is this a current diagnosis for this admission?: Yes - Time Time Spent with patient: 15-24 minutes Medications reviewed and adjusted accordingly: Yes Anticipated discharge: Other Within: Other - Plan Summary Plan Summary: Will repeat the blood work and repeat the chest x-ray
[2018-02-13] MEDS: IPRATROPIUM/ALBUTEROL 0.5-2.5 MG/3 ML AMPUL NEB PRN (13:18)
--- NOTE | 2018-02-13 13:46 | RADIOLOGY REPORT (SQ) ---
EXAM DESCRIPTION: CHEST SINGLE VIEW COMPLETED DATE/TIME: 02/13/2018 1:35 pm REASON FOR STUDY: RHONCHI COMPARISON: 02/06/2018. FINDINGS: Single-view chest AP portable semi-upright approximately 1307 hours. Haziness throughout the lung bases with further diminished aeration compared to prior. Worsening vol ume loss with small effusions. Probable CHF. TECHNICAL DOCUMENTATION: JOB ID: [id number] Reading location - IP/workstation name: [email or web address]
[2018-02-13] MEDS: FUROSEMIDE INJ/PF 20 MG/2 ML SDV IV SCH (14:50)
[2018-02-13] MEDS: LIDOCAINE 5% (700 MG) TRANSDERMAL ADH..PATCH TP SCH (17:34)
[2018-02-13] MEDS: FLUCONAZOLE 100 MG TABLET PO SCH (17:34)
[2018-02-13] MEDS: LEVOFLOXACIN 750 MG/D5W RTU 750 MG/150 ML RTUPB IV SCH (17:35)
[2018-02-13] MEDS: ENOXAPARIN SODIUM INJ 40 MG/0.4 ML DISP.SYRIN SUBCUT SCH (21:56)
[2018-02-14] MEDS: METRONIDAZOLE 500 MG TABLET PO SCH ×3 (05:16→22:51)
[2018-02-14] MEDS: FUROSEMIDE INJ/PF 20 MG/2 ML SDV IV SCH ×2 (05:16→17:21)
[2018-02-14] MEDS: PHARMACY COMMUNICATION ORDER MC SCH (05:32)
[2018-02-14 06:05] LABS: HEMATOCRIT 28.7 % (36.0-47.0); HEMOGLOBIN 9.5 g/dL (12.0-15.5); MEAN CORPUSCULAR HEMOGLOBIN 27.7 pg (27.0-33.4); MEAN CORPUSCULAR HGB CONC 33.1 g/dL (32.0-36.0); MEAN CORPUSCULAR VOLUME 84 fl (80-97); PLATELET COUNT 365 10^3/uL (150-450); RED BLOOD COUNT 3.43 10^6/uL (3.72-5.28); RED CELL DISTRIBUTION WIDTH 18.7 % (11.5-14.0); WHITE BLOOD COUNT 10.4 10^3/uL (4.0-10.5)
[2018-02-14 06:25] LABS: ABSOLUTE LYMPHOCYTES# (MANUAL) 1.2 10^3/uL (0.5-4.7); ABSOLUTE MONOCYTES # (MANUAL) 0.1 10^3/uL (0.1-1.4); ABSOLUTE NEUTROPHILS# (MANUAL) 8.9 10^3/uL (1.7-8.2); BASOPHILS % (MANUAL) 0 % (0-2); EOSINOPHILS % (MANUAL) 1 % (0-6); LYMPHOCYTES % (MANUAL) 11 % (13-45); MONOCYTES % (MANUAL) 1 % (3-13); SEGMENTED NEUTROPHILS % (MAN) 82 % (42-78); TOTAL CELLS COUNTED 100
[2018-02-14 06:27] LABS: ANISOCYTOSIS 2+; OVALOCYTES SLIGHT; POIKILOCYTOSIS SLIGHT; POLYCHROMASIA 1+; TOXIC GRANULATION 1+
[2018-02-14 06:28] LABS: METAMYELOCYTES % (MANUAL) 3 % (0); PLATELET COMMENT ADEQUATE
[2018-02-14 06:29] LABS: MYELOCYTES % (MANUAL) 1 % (0)
[2018-02-14 06:32] LABS: ANION GAP 6 (5-19); BLOOD UREA NITROGEN 11 mg/dL (7-20); CALCIUM 7.9 mg/dL (8.4-10.2); CARBON DIOXIDE 29 mmol/L (22-30); CHLORIDE 98 mmol/L (98-107); GLUCOSE 116 mg/dL (75-110); POTASSIUM 3.9 mmol/L (3.6-5.0); SODIUM 132.9 mmol/L (137-145)
[2018-02-14] MEDS: LEVOTHYROXINE SODIUM INJ/PF 0.1 MG SDV IV SCH (09:24)
[2018-02-14] MEDS: LACTOBACILLUS ACIDOPHILUS 250 MG TAB PO SCH ×2 (09:24→17:21)
--- NOTE | 2018-02-14 11:55 | PDOC PROGRESS REPORT ---
Subjective Progress Note for:: 02/14/18 Subjective:: Patient is feeling much better after starting the Lasix 20 mg IV twice a day Patient is denied any chest pain denied any shortness of the breath Patient's chest x-ray suggested vascular congestions Reason For Visit: [facility] Physical Exam Vital Signs: Temp Pulse Resp BP Pulse Ox 97.9 F 84 22 H 104/65 97 02/14/18 08:38 02/14/18 08:38 02/14/18 08:38 02/14/18 08:38 02/14/18 08:38 Intake & Output 02/13/18 02/14/18 02/15/18 06:59 06:59 06:59 Intake Total 727 920 Output Total 786 3550 Balance -59 -2630 Weight 102.6 kg 103.2 kg General appearance: PRESENT: no acute distress, well-developed, well-nourished Head exam: PRESENT: atraumatic, normocephalic Eye exam: PRESENT: conjunctiva pink, EOMI, PERRLA. ABSENT: scleral icterus Ear exam: PRESENT: normal external ear exam Mouth exam: PRESENT: moist, tongue midline Neck exam: PRESENT: full ROM. ABSENT: carotid bruit, JVD, lymphadenopathy, thyromegaly Respiratory exam: PRESENT: clear to auscultation mendoza Cardiovascular exam: PRESENT: RRR. ABSENT: diastolic murmur, rubs, systolic murmur Pulses: PRESENT: normal dorsalis pedis pul, +2 pedal pulses bilateral Vascular exam: PRESENT: normal capillary refill GI/Abdominal exam: PRESENT: normal bowel sounds, soft. ABSENT: distended, guarding, mass, organolmegaly, rebound, tenderness Rectal exam: PRESENT: deferred Neurological exam: PRESENT: alert, awake, oriented to person, oriented to place, oriented to time, oriented to situation, CN II-XII grossly intact. ABSENT: motor sensory deficit Psychiatric exam: PRESENT: appropriate affect, normal mood. ABSENT: homicidal ideation, suicidal ideation Skin exam: PRESENT: dry, intact, warm. ABSENT: cyanosis, rash Results Laboratory Results: 02/14/18 05:14 02/14/18 05:14 02/14/18 02/14/18 05:14 05:14 WBC 10.4 RBC 3.43 L Hgb 9.5 L Hct 28.7 L MCV 84 MCH 27.7 MCHC 33.1 RDW 18.7 H Plt Count 365 Seg Neutrophils % Not Reportable Lymphocytes % Not Reportable Monocytes % Not Reportable Eosinophils % Not Reportable Basophils % Not Reportable Absolute Neutrophils Not Reportable Absolute Lymphocytes Not Reportable Absolute Monocytes Not Reportable Absolute Eosinophils Not Reportable Absolute Basophils Not Reportable Sodium 132.9 L Potassium 3.9 Chloride 98 Carbon Dioxide 29 Anion Gap 6 BUN 11 Creatinine 0.40 L Est GFR ( Amer) > 60 Est GFR (Non-Af Amer) > 60 Glucose 116 H Calcium 7.9 L 02/06/18 02/06/18 02/06/18 14:20 20:40 20:40 Creatine Kinase 42 CK-MB (CK-2) 1.18 Troponin I < 0.012 < 0.012 02/07/18 02/07/18 02/07/18 03:52 03:52 10:50 Creatine Kinase 40 39 CK-MB (CK-2) 1.18 Troponin I < 0.012 02/07/18 10:50 Creatine Kinase CK-MB (CK-2) 0.99 Troponin I < 0.012 Impressions: Abdomen/Pelvis CT 02/07/18 00:00 IMPRESSION: High-grade partial small bowel obstruction secondary to a partially obstructed loop of small bowel in at lower abdominal wall ventral hernia. KUB X-Ray 02/08/18 06:00 IMPRESSION: Large amount of stool throughout the colon. Stomach decompressed by nasogastric tube. Distended small bowel loops in the mid epigastrium. Abnormal but nonspecific bowel gas pattern. Assessment & Plan - Diagnosis (1) C. difficile colitis Is this a current diagnosis for this admission?: Yes Plan: Use of p.o. Flagyl (2) Bilateral pneumonia Qualifiers: Pneumonia type: due to unspecified organism Lung location: unspecified part of lung Qualified Code(s): J18.9 - Pneumonia, unspecified organism Is this a current diagnosis for this admission?: Yes Plan: Will get the IV Levaquin stop the cefepime will check the sputum culture and repeat the chest x-ray (3) Small bowel obstruction Is this a current diagnosis for this admission?: Yes Plan: Currently all resolved (4) Chronic atrial fibrillation Is this a current diagnosis for this admission?: Yes (5) Hypothyroidism Qualifiers: Hypothyroidism type: acquired Qualified Code(s): E03.9 - Hypothyroidism, unspecified Is this a current diagnosis for this admission?: Yes - Time Time Spent with patient: 15-24 minutes Medications reviewed and adjusted accordingly: Yes Anticipated discharge: Other Within: Other - Plan Summary Plan Summary: Continues current medication
[2018-02-14] MEDS: IPRATROPIUM/ALBUTEROL 0.5-2.5 MG/3 ML AMPUL NEB PRN ×2 (16:40→22:36)
[2018-02-14] MEDS: FLUCONAZOLE 100 MG TABLET PO SCH (17:21)
[2018-02-14] MEDS: LIDOCAINE 5% (700 MG) TRANSDERMAL ADH..PATCH TP SCH (17:22)
[2018-02-14] MEDS ORDERED: LEVOFLOXACIN 750 MG/D5W RTU 750 MG/150 ML RTUPB IV SCH (18:00)
[2018-02-14] MEDS: ENOXAPARIN SODIUM INJ 40 MG/0.4 ML DISP.SYRIN SUBCUT SCH (22:51)
[2018-02-15 05:30] LABS: ANION GAP 9 (5-19); BLOOD UREA NITROGEN 12 mg/dL (7-20); CALCIUM 7.8 mg/dL (8.4-10.2); CARBON DIOXIDE 29 mmol/L (22-30); CHLORIDE 94 mmol/L (98-107); GLUCOSE 126 mg/dL (75-110); POTASSIUM 3.7 mmol/L (3.6-5.0)
[2018-02-15] MEDS: METRONIDAZOLE 500 MG TABLET PO SCH ×3 (06:33→22:14)
[2018-02-15] MEDS: FUROSEMIDE INJ/PF 20 MG/2 ML SDV IV SCH ×2 (06:33→17:37)
[2018-02-15] MEDS: PHARMACY COMMUNICATION ORDER MC SCH (06:34)
--- NOTE | 2018-02-15 08:29 | PDOC PROGRESS REPORT ---
Subjective Progress Note for:: 02/15/18 Subjective:: Patient reported less coughing and good expectoration. No chest pain. No nausea, vomiting or abdominal pain. Improved diarrhea. No fever or chills. Reason For Visit: [facility] Physical Exam Vital Signs: Temp Pulse Resp BP Pulse Ox 98.1 F 83 18 125/60 94 02/15/18 07:30 02/15/18 07:30 02/15/18 07:30 02/15/18 07:30 02/15/18 07:30 Intake & Output 02/14/18 02/15/18 02/16/18 06:59 06:59 06:59 Intake Total 920 1251 Output Total 3550 2900 Balance -2630 -1649 Weight 103.2 kg 103.2 kg Physical Exam: General appearance: PRESENT: mild distress - with supplemental oxygen via nasal cannula., morbidly obese Head exam: PRESENT: atraumatic, normocephalic Eye exam: PRESENT: conjunctiva pink, EOMI, PERRLA. ABSENT: pallor, scleral icterus Ear exam: PRESENT: normal external ear exam Mouth exam: PRESENT: moist Respiratory exam: PRESENT: Clear to auscultation, decreased breath sounds Cardiovascular exam: PRESENT: irregular rhythm, +S1, +S2. ABSENT: diastolic murmur, systolic murmur GI/Abdominal exam: PRESENT: normal bowel sounds, soft. ABSENT: distended, guarding, mass, organomegaly, rebound, tenderness Extremities exam: PRESENT: less pedal edema Neurological exam: PRESENT: alert, awake Psychiatric exam: PRESENT: appropriate affect, normal mood. ABSENT: homicidal ideation, suicidal ideation Skin exam: PRESENT: dry, warm Results Laboratory Results: 02/14/18 05:14 02/15/18 03:36 02/15/18 03:36 Sodium 132.0 L Potassium 3.7 Chloride 94 L Carbon Dioxide 29 Anion Gap 9 BUN 12 Creatinine 0.49 L Est GFR ( Amer) > 60 Est GFR (Non-Af Amer) > 60 Glucose 126 H Calcium 7.8 L 02/06/18 02/06/18 02/06/18 14:20 20:40 20:40 Creatine Kinase 42 CK-MB (CK-2) 1.18 Troponin I < 0.012 < 0.012 02/07/18 02/07/18 02/07/18 03:52 03:52 10:50 Creatine Kinase 40 39 CK-MB (CK-2) 1.18 Troponin I < 0.012 02/07/18 10:50 Creatine Kinase CK-MB (CK-2) 0.99 Troponin I < 0.012 Impressions: Abdomen/Pelvis CT 02/07/18 00:00 IMPRESSION: High-grade partial small bowel obstruction secondary to a partially obstructed loop of small bowel in at lower abdominal wall ventral hernia. KUB X-Ray 02/08/18 06:00 IMPRESSION: Large amount of stool throughout the colon. Stomach decompressed by nasogastric tube. Distended small bowel loops in the mid epigastrium. Abnormal but nonspecific bowel gas pattern. Assessment & Plan - Diagnosis (1) Bilateral pneumonia Qualifiers: Pneumonia type: due to unspecified organism Lung location: unspecified part of lung Qualified Code(s): J18.9 - Pneumonia, unspecified organism Is this a current diagnosis for this admission?: Yes (2) Small bowel obstruction Is this a current diagnosis for this admission?: Yes (3) Status post closed fracture of right hip Is this a current diagnosis for this admission?: Yes (4) Chronic atrial fibrillation Is this a current diagnosis for this admission?: Yes (5) Hypertension Qualifiers: Hypertension type: essential hypertension Qualified Code(s): I10 - Essential (primary) hypertension Is this a current diagnosis for this admission?: Yes (6) Hypothyroidism Qualifiers: Hypothyroidism type: acquired Qualified Code(s): E03.9 - Hypothyroidism, unspecified Is this a current diagnosis for this admission?: Yes (7) Osteoarthritis involving multiple 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 of body Is this a current diagnosis for this admission?: Yes (8) Vitamin B 12 deficiency Is this a current diagnosis for this admission?: Yes (9) Antibiotic-associated diarrhea Is this a current diagnosis for this admission?: Yes - Time Time Spent with patient: 25-34 minutes Medications reviewed and adjusted accordingly: Yes Anticipated discharge: SNF Within: Other - Inpatient Certification Based on my medical assessment, after consideration of the patient's comorbidities, presenting symptoms, or acuity I expect that the services needed warrant INPATIENT care.: Yes I certify that my determination is in accordance with my understanding of Medicare's requirements for reasonable and necessary INPATIENT services [42 CFR 412.3e].: Yes Medical Necessity: Significant Comorbidiites Make Outpatient Treatment Too Risky, Need Close Monitoring Due to Risk of Patient Decompensation, Need For Continuous Telemetry Monitoring, Need for Nebulizer Therapy and Monitoring of Response, Need for IV Antibiotics, Risk of Complication if Not Cared For in Hospital Post Hospital Care: D/C or Transfer Summary - Plan Summary Plan Summary: Continue IV Levofloxacin coverage. She will remain on oral Flagyl therapy. Advance diet to soft diet today. Continue all other current medication management.
[2018-02-15] MEDS: LEVOTHYROXINE SODIUM INJ/PF 0.1 MG SDV IV SCH (09:55)
[2018-02-15] MEDS: LACTOBACILLUS ACIDOPHILUS 250 MG TAB PO SCH ×2 (09:55→17:29)
[2018-02-15 15:01] LABS: PATH REVIEW PATHOLOGIST REVIEWED
[2018-02-15] MEDS: FLUCONAZOLE 100 MG TABLET PO SCH (17:29)
[2018-02-15] MEDS: LEVOFLOXACIN 750 MG TABLET PO SCH (17:29)
[2018-02-15] MEDS: LIDOCAINE 5% (700 MG) TRANSDERMAL ADH..PATCH TP SCH (17:39)
[2018-02-15] MEDS: ENOXAPARIN SODIUM INJ 40 MG/0.4 ML DISP.SYRIN SUBCUT SCH (22:14)
[2018-02-16] MEDS: FUROSEMIDE INJ/PF 20 MG/2 ML SDV IV SCH (05:03)
[2018-02-16 06:18] LABS: ANION GAP 8 (5-19); BLOOD UREA NITROGEN 12 mg/dL (7-20); CALCIUM 7.7 mg/dL (8.4-10.2); CARBON DIOXIDE 31 mmol/L (22-30); CHLORIDE 93 mmol/L (98-107); GLUCOSE 95 mg/dL (75-110); POTASSIUM 3.8 mmol/L (3.6-5.0); SODIUM 131.6 mmol/L (137-145)
[2018-02-16] MEDS: PHARMACY COMMUNICATION ORDER MC SCH (06:49)
[2018-02-16] MEDS: METRONIDAZOLE 500 MG TABLET PO SCH ×3 (06:49→21:43)
[2018-02-16] MEDS: LEVOTHYROXINE SODIUM 0.088 MG TABLET PO SCH (06:49)
[2018-02-16] MEDS: LACTOBACILLUS ACIDOPHILUS 250 MG TAB PO SCH ×2 (10:11→17:38)
--- NOTE | 2018-02-16 11:21 | PDOC PROGRESS REPORT ---
Subjective Progress Note for:: 02/16/18 Subjective:: Patient reported some improvement in her diarrhea. No nausea, vomiting or abdominal pain. No fever or chills. No chest pain. Coughing persist with expectoration. Reason For Visit: [facility] Physical Exam Vital Signs: Temp Pulse Resp BP Pulse Ox 97.8 F 78 16 103/49 L 98 02/16/18 08:00 02/16/18 08:00 02/16/18 08:00 02/16/18 08:00 02/16/18 08:00 Intake & Output 02/15/18 02/16/18 02/17/18 06:59 06:59 06:59 Intake Total 1251 621 Output Total 2900 1300 Balance -1649 -679 Weight 103.2 kg 100.8 kg Physical Exam: General appearance: PRESENT: mild distress - with supplemental oxygen via nasal cannula., morbidly obese Head exam: PRESENT: atraumatic, normocephalic Eye exam: PRESENT: conjunctiva pink, EOMI, PERRLA. ABSENT: pallor, scleral icterus Ear exam: PRESENT: normal external ear exam Mouth exam: PRESENT: moist Respiratory exam: PRESENT: Clear to auscultation, decreased breath sounds at lung bases Cardiovascular exam: PRESENT: irregular rhythm, +S1, +S2. ABSENT: diastolic murmur, systolic murmur GI/Abdominal exam: PRESENT: normal bowel sounds, soft. ABSENT: distended, guarding, mass, organomegaly, rebound, tenderness Extremities exam: PRESENT: less pedal edema Neurological exam: PRESENT: alert, awake Psychiatric exam: PRESENT: appropriate affect, normal mood. ABSENT: homicidal ideation, suicidal ideation Skin exam: PRESENT: dry, warm Results Laboratory Results: 02/14/18 05:14 02/16/18 04:11 02/16/18 04:11 Sodium 131.6 L Potassium 3.8 Chloride 93 L Carbon Dioxide 31 H Anion Gap 8 BUN 12 Creatinine 0.51 L Est GFR ( Amer) > 60 Est GFR (Non-Af Amer) > 60 Glucose 95 Calcium 7.7 L 02/13/18 11:55 Sputum Gram Stain - Final 02/13/18 11:55 Sputum Sputum Culture - Final C.albicans/C.dubliniensis Reduced Normal Lyssa 02/06/18 02/06/18 02/06/18 14:20 20:40 20:40 Creatine Kinase 42 CK-MB (CK-2) 1.18 Troponin I < 0.012 < 0.012 02/07/18 02/07/18 02/07/18 03:52 03:52 10:50 Creatine Kinase 40 39 CK-MB (CK-2) 1.18 Troponin I < 0.012 02/07/18 10:50 Creatine Kinase CK-MB (CK-2) 0.99 Troponin I < 0.012 Impressions: Abdomen/Pelvis CT 02/07/18 00:00 IMPRESSION: High-grade partial small bowel obstruction secondary to a partially obstructed loop of small bowel in at lower abdominal wall ventral hernia. KUB X-Ray 02/08/18 06:00 IMPRESSION: Large amount of stool throughout the colon. Stomach decompressed by nasogastric tube. Distended small bowel loops in the mid epigastrium. Abnormal but nonspecific bowel gas pattern. Assessment & Plan - Diagnosis (1) Bilateral pneumonia Qualifiers: Pneumonia type: due to unspecified organism Lung location: unspecified part of lung Qualified Code(s): J18.9 - Pneumonia, unspecified organism Is this a current diagnosis for this admission?: Yes (2) Small bowel obstruction Is this a current diagnosis for this admission?: Yes (3) Status post closed fracture of right hip Is this a current diagnosis for this admission?: Yes (4) Chronic atrial fibrillation Is this a current diagnosis for this admission?: Yes (5) Hypertension Qualifiers: Hypertension type: essential hypertension Qualified Code(s): I10 - Essential (primary) hypertension Is this a current diagnosis for this admission?: Yes (6) Hypothyroidism Qualifiers: Hypothyroidism type: acquired Qualified Code(s): E03.9 - Hypothyroidism, unspecified Is this a current diagnosis for this admission?: Yes (7) Osteoarthritis involving multiple 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 of body Is this a current diagnosis for this admission?: Yes (8) Vitamin B 12 deficiency Is this a current diagnosis for this admission?: Yes (9) Antibiotic-associated diarrhea Is this a current diagnosis for this admission?: Yes - Time Time Spent with patient: 25-34 minutes Medications reviewed and adjusted accordingly: Yes Anticipated discharge: SNF Within: Other - Inpatient Certification Based on my medical assessment, after consideration of the patient's comorbidities, presenting symptoms, or acuity I expect that the services needed warrant INPATIENT care.: Yes I certify that my determination is in accordance with my understanding of Medicare's requirements for reasonable and necessary INPATIENT services [42 CFR 412.3e].: Yes Medical Necessity: Significant Comorbidiites Make Outpatient Treatment Too Risky, Need Close Monitoring Due to Risk of Patient Decompensation, Need For IV Fluids, Need For Continuous Telemetry Monitoring, Need for Nebulizer Therapy and Monitoring of Response, Risk of Complication if Not Cared For in Hospital Post Hospital Care: D/C or Transfer Summary - Plan Summary Plan Summary: D/C Levofloxacin. Continue Diflucan and Flagyl therapy. Add BeneProtein to dietary supplementation. Request PT and OT evaluation.
[2018-02-16] MEDS: FUROSEMIDE 20 MG TABLET PO SCH (17:38)
[2018-02-16] MEDS: FLUCONAZOLE 100 MG TABLET PO SCH (17:38)
[2018-02-16] MEDS: LEVOFLOXACIN 750 MG TABLET PO SCH (17:38)
[2018-02-16] MEDS: LIDOCAINE 5% (700 MG) TRANSDERMAL ADH..PATCH TP SCH (17:40)
[2018-02-16] MEDS: ENOXAPARIN SODIUM INJ 40 MG/0.4 ML DISP.SYRIN SUBCUT SCH (21:43)
[2018-02-17] MEDS: LEVOTHYROXINE SODIUM 0.088 MG TABLET PO SCH (06:31)
[2018-02-17] MEDS: METRONIDAZOLE 500 MG TABLET PO SCH ×3 (06:31→23:17)
[2018-02-17] MEDS: PHARMACY COMMUNICATION ORDER MC SCH (06:40)
--- NOTE | 2018-02-17 08:09 | PDOC PROGRESS REPORT ---
Subjective Progress Note for:: 02/17/18 Subjective:: No chest pain or difficulty with breathing. Improved coughing spells and expectoration. Compliant with bedside incentive spirometer and Flutter devices usage. No nausea, vomiting or abdominal pain. No fever or chills. There has been improvement in her diarrhea. Reason For Visit: [facility] Physical Exam Vital Signs: Temp Pulse Resp BP Pulse Ox 97.2 F 79 17 99/55 L 91 L 02/17/18 07:50 02/17/18 07:50 02/17/18 07:50 02/17/18 07:50 02/17/18 07:50 Intake & Output 02/16/18 02/17/18 02/18/18 06:59 06:59 06:59 Intake Total 621 1202 Output Total 1300 1105 Balance -679 97 Weight 100.8 kg 102.2 kg Physical Exam: General appearance: PRESENT: on CPAP support while sleeping. morbidly obese Head exam: PRESENT: atraumatic, normocephalic Eye exam: PRESENT: conjunctiva pink, EOMI, PERRLA. ABSENT: pallor, scleral icterus Ear exam: PRESENT: normal external ear exam Mouth exam: PRESENT: moist Respiratory exam: PRESENT: Clear to auscultation, decreased breath sounds at lung bases Cardiovascular exam: PRESENT: irregular rhythm, +S1, +S2. ABSENT: diastolic murmur, systolic murmur GI/Abdominal exam: PRESENT: normal bowel sounds, soft. ABSENT: distended, guarding, mass, organomegaly, rebound, tenderness Extremities exam: PRESENT: less pedal edema Neurological exam: PRESENT: alert, awake Psychiatric exam: PRESENT: appropriate affect, normal mood. ABSENT: homicidal ideation, suicidal ideation Skin exam: PRESENT: dry, warm Results Laboratory Results: 02/14/18 05:14 02/16/18 04:11 02/06/18 02/06/18 02/06/18 14:20 20:40 20:40 Creatine Kinase 42 CK-MB (CK-2) 1.18 Troponin I < 0.012 < 0.012 02/07/18 02/07/18 02/07/18 03:52 03:52 10:50 Creatine Kinase 40 39 CK-MB (CK-2) 1.18 Troponin I < 0.012 02/07/18 10:50 Creatine Kinase CK-MB (CK-2) 0.99 Troponin I < 0.012 Impressions: Abdomen/Pelvis CT 02/07/18 00:00 IMPRESSION: High-grade partial small bowel obstruction secondary to a partially obstructed loop of small bowel in at lower abdominal wall ventral hernia. KUB X-Ray 02/08/18 06:00 IMPRESSION: Large amount of stool throughout the colon. Stomach decompressed by nasogastric tube. Distended small bowel loops in the mid epigastrium. Abnormal but nonspecific bowel gas pattern. Assessment & Plan - Diagnosis (1) Bilateral pneumonia Qualifiers: Pneumonia type: due to unspecified organism Lung location: unspecified part of lung Qualified Code(s): J18.9 - Pneumonia, unspecified organism Is this a current diagnosis for this admission?: Yes (2) Small bowel obstruction Is this a current diagnosis for this admission?: Yes (3) Status post closed fracture of right hip Is this a current diagnosis for this admission?: Yes (4) Chronic atrial fibrillation Is this a current diagnosis for this admission?: Yes (5) Hypertension Qualifiers: Hypertension type: essential hypertension Qualified Code(s): I10 - Essential (primary) hypertension Is this a current diagnosis for this admission?: Yes (6) Hypothyroidism Qualifiers: Hypothyroidism type: acquired Qualified Code(s): E03.9 - Hypothyroidism, unspecified Is this a current diagnosis for this admission?: Yes (7) Osteoarthritis involving multiple 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 of body Is this a current diagnosis for this admission?: Yes (8) Vitamin B 12 deficiency Is this a current diagnosis for this admission?: Yes (9) Antibiotic-associated diarrhea Is this a current diagnosis for this admission?: Yes - Time Time Spent with patient: 25-34 minutes Medications reviewed and adjusted accordingly: Yes Anticipated discharge: SNF Within: Other - Inpatient Certification Based on my medical assessment, after consideration of the patient's comorbidities, presenting symptoms, or acuity I expect that the services needed warrant INPATIENT care.: Yes I certify that my determination is in accordance with my understanding of Medicare's requirements for reasonable and necessary INPATIENT services [42 CFR 412.3e].: Yes Medical Necessity: Significant Comorbidiites Make Outpatient Treatment Too Risky, Need Close Monitoring Due to Risk of Patient Decompensation, Need For Continuous Telemetry Monitoring, Need for Nebulizer Therapy and Monitoring of Response, Risk of Complication if Not Cared For in Hospital Post Hospital Care: D/C [employer] Manager Documentation - Plan Summary Plan Summary: Continue current medication management. Advance diet to regular consistency. Involve PT and OT services. Possible transfer back to SNF to continue short term rehabilitation.
[2018-02-17] MEDS: FUROSEMIDE 20 MG TABLET PO SCH ×2 (09:35→17:13)
[2018-02-17] MEDS: LACTOBACILLUS ACIDOPHILUS 250 MG TAB PO SCH ×2 (09:35→17:13)
[2018-02-17 09:39] LABS: HEMATOCRIT 28.9 % (36.0-47.0); HEMOGLOBIN 9.5 g/dL (12.0-15.5); MEAN CORPUSCULAR HEMOGLOBIN 27.1 pg (27.0-33.4); MEAN CORPUSCULAR HGB CONC 32.8 g/dL (32.0-36.0); MEAN CORPUSCULAR VOLUME 83 fl (80-97); PLATELET COUNT 359 10^3/uL (150-450); RED BLOOD COUNT 3.49 10^6/uL (3.72-5.28); RED CELL DISTRIBUTION WIDTH 19.1 % (11.5-14.0); WHITE BLOOD COUNT 9.2 10^3/uL (4.0-10.5)
[2018-02-17 10:01] LABS: ANION GAP 7 (5-19); BLOOD UREA NITROGEN 9 mg/dL (7-20); CALCIUM 7.5 mg/dL (8.4-10.2); CARBON DIOXIDE 30 mmol/L (22-30); CHLORIDE 94 mmol/L (98-107); GLUCOSE 107 mg/dL (75-110); POTASSIUM 3.8 mmol/L (3.6-5.0); SODIUM 130.5 mmol/L (137-145)
[2018-02-17 10:31] LABS: ABSOLUTE LYMPHOCYTES# (MANUAL) 1.9 10^3/uL (0.5-4.7); ABSOLUTE MONOCYTES # (MANUAL) 0.4 10^3/uL (0.1-1.4); ABSOLUTE NEUTROPHILS# (MANUAL) 6.7 10^3/uL (1.7-8.2); BAND NEUTROPHILS % (MANUAL) 3 % (3-5); BASOPHILS % (MANUAL) 0 % (0-2); EOSINOPHILS % (MANUAL) 2 % (0-6); LYMPHOCYTES % (MANUAL) 21 % (13-45); MONOCYTES % (MANUAL) 4 % (3-13); SEGMENTED NEUTROPHILS % (MAN) 70 % (42-78); TOTAL CELLS COUNTED 100; TOXIC GRANULATION 2+; TOXIC VACUOLATION PRESENT
[2018-02-17 10:32] LABS: ANISOCYTOSIS 2+; HYPOCHROMASIA SLIGHT; PLATELET COMMENT ADEQUATE; POLYCHROMASIA SLIGHT
[2018-02-17] MEDS: FLUCONAZOLE 100 MG TABLET PO SCH (17:13)
[2018-02-17] MEDS: LEVOFLOXACIN 750 MG TABLET PO SCH (17:13)
[2018-02-17] MEDS: LIDOCAINE 5% (700 MG) TRANSDERMAL ADH..PATCH TP SCH (23:17)
[2018-02-17] MEDS: ENOXAPARIN SODIUM INJ 40 MG/0.4 ML DISP.SYRIN SUBCUT SCH (23:17)
[2018-02-18] MEDS: METRONIDAZOLE 500 MG TABLET PO SCH ×3 (05:21→23:19)
[2018-02-18] MEDS: LEVOTHYROXINE SODIUM 0.088 MG TABLET PO SCH (05:21)
[2018-02-18] MEDS: PHARMACY COMMUNICATION ORDER MC SCH (05:29)
[2018-02-18 06:23] LABS: ANION GAP 7 (5-19); BLOOD UREA NITROGEN 8 mg/dL (7-20); CALCIUM 7.6 mg/dL (8.4-10.2); CARBON DIOXIDE 29 mmol/L (22-30); CHLORIDE 94 mmol/L (98-107); GLUCOSE 118 mg/dL (75-110); POTASSIUM 3.8 mmol/L (3.6-5.0); SODIUM 130.2 mmol/L (137-145)
--- NOTE | 2018-02-18 08:17 | PDOC PROGRESS REPORT ---
Subjective Progress Note for:: 02/18/18 Subjective:: No chest pain or difficulty with breathing. Tolerating oral feeding. No nausea, vomiting or abdominal pain. No fever or chills. Resolved diarrhea since last clinical evaluation. Reason For Visit: [facility] Physical Exam Vital Signs: Temp Pulse Resp BP Pulse Ox 98.0 F 72 17 107/44 L 95 02/18/18 07:34 02/18/18 07:34 02/18/18 07:34 02/18/18 07:34 02/18/18 07:34 Intake & Output 02/17/18 02/18/18 02/19/18 06:59 06:59 06:59 Intake Total 1202 710 Output Total 1105 2950 Balance 97 -2240 Weight 102.2 kg 103.2 kg Physical Exam: General appearance: PRESENT: No acute distress, obese Head exam: PRESENT: atraumatic, normocephalic Eye exam: PRESENT: conjunctiva pink, EOMI, PERRLA. ABSENT: pallor, scleral icterus Ear exam: PRESENT: normal external ear exam Mouth exam: PRESENT: moist Respiratory exam: PRESENT: Clear to auscultation, decreased breath sounds at lung bases Cardiovascular exam: PRESENT: irregular rhythm, +S1, +S2. ABSENT: diastolic murmur, systolic murmur GI/Abdominal exam: PRESENT: normal bowel sounds, soft. ABSENT: distended, guarding, mass, organomegaly, rebound, tenderness Extremities exam: PRESENT: less pedal edema Neurological exam: PRESENT: alert, awake Psychiatric exam: PRESENT: appropriate affect, normal mood. ABSENT: homicidal ideation, suicidal ideation Skin exam: PRESENT: dry, warm Results Laboratory Results: 02/17/18 08:36 02/18/18 05:16 02/17/18 02/17/18 02/18/18 08:36 08:36 05:16 WBC 9.2 RBC 3.49 L Hgb 9.5 L Hct 28.9 L MCV 83 MCH 27.1 MCHC 32.8 RDW 19.1 H Plt Count 359 Seg Neutrophils % Not Reportable Lymphocytes % Not Reportable Monocytes % Not Reportable Eosinophils % Not Reportable Basophils % Not Reportable Absolute Neutrophils Not Reportable Absolute Lymphocytes Not Reportable Absolute Monocytes Not Reportable Absolute Eosinophils Not Reportable Absolute Basophils Not Reportable Sodium 130.5 L 130.2 L Potassium 3.8 3.8 Chloride 94 L 94 L Carbon Dioxide 30 29 Anion Gap 7 7 BUN 9 8 Creatinine 0.50 L 0.50 L Est GFR ( Amer) > 60 > 60 Est GFR (Non-Af Amer) > 60 > 60 Glucose 107 118 H Calcium 7.5 L 7.6 L 02/06/18 02/06/18 02/06/18 14:20 20:40 20:40 Creatine Kinase 42 CK-MB (CK-2) 1.18 Troponin I < 0.012 < 0.012 02/07/18 02/07/18 02/07/18 03:52 03:52 10:50 Creatine Kinase 40 39 CK-MB (CK-2) 1.18 Troponin I < 0.012 02/07/18 10:50 Creatine Kinase CK-MB (CK-2) 0.99 Troponin I < 0.012 Impressions: Abdomen/Pelvis CT 02/07/18 00:00 IMPRESSION: High-grade partial small bowel obstruction secondary to a partially obstructed loop of small bowel in at lower abdominal wall ventral hernia. KUB X-Ray 02/08/18 06:00 IMPRESSION: Large amount of stool throughout the colon. Stomach decompressed by nasogastric tube. Distended small bowel loops in the mid epigastrium. Abnormal but nonspecific bowel gas pattern. Assessment & Plan - Diagnosis (1) Bilateral pneumonia Qualifiers: Pneumonia type: due to unspecified organism Lung location: unspecified part of lung Qualified Code(s): J18.9 - Pneumonia, unspecified organism Is this a current diagnosis for this admission?: Yes (2) Small bowel obstruction Is this a current diagnosis for this admission?: Yes (3) Status post closed fracture of right hip Is this a current diagnosis for this admission?: Yes (4) Chronic atrial fibrillation Is this a current diagnosis for this admission?: Yes (5) Hypertension Qualifiers: Hypertension type: essential hypertension Qualified Code(s): I10 - Essential (primary) hypertension Is this a current diagnosis for this admission?: Yes (6) Hypothyroidism Qualifiers: Hypothyroidism type: acquired Qualified Code(s): E03.9 - Hypothyroidism, unspecified Is this a current diagnosis for this admission?: Yes (7) Osteoarthritis involving multiple 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 of body Is this a current diagnosis for this admission?: Yes (8) Vitamin B 12 deficiency Is this a current diagnosis for this admission?: Yes (9) Antibiotic-associated diarrhea Is this a current diagnosis for this admission?: Yes - Time Time Spent with patient: 25-34 minutes Medications reviewed and adjusted accordingly: Yes Anticipated discharge: SNF - for short term rehabilitation. - Inpatient Certification Based on my medical assessment, after consideration of the patient's com orbidities, presenting symptoms, or acuity I expect that the services needed warrant INPATIENT care.: Yes I certify that my determination is in accordance with my understanding of Medicare's requirements for reasonable and necessary INPATIENT services [42 CFR 412.3e].: Yes Medical Necessity: Need Close Monitoring Due to Risk of Patient Decompensation, Need For Continuous Telemetry Monitoring, Risk of Complication if Not Cared For in Hospital Post Hospital Care: D/C or Transfer Summary - Plan Summary Plan Summary: D/C Weeks catheter and encourage bed to chair as well as bedside commode usage. Possible transfer to SNF tomorrow
[2018-02-18] MEDS: FUROSEMIDE 20 MG TABLET PO SCH ×2 (09:13→17:09)
[2018-02-18] MEDS: LACTOBACILLUS ACIDOPHILUS 250 MG TAB PO SCH ×2 (09:13→17:09)
[2018-02-18] MEDS: FLUCONAZOLE 100 MG TABLET PO SCH (17:08)
[2018-02-18] MEDS: LEVOFLOXACIN 750 MG TABLET PO SCH (17:09)
[2018-02-18] MEDS: LIDOCAINE 5% (700 MG) TRANSDERMAL ADH..PATCH TP SCH (17:09)
[2018-02-18] MEDS: ENOXAPARIN SODIUM INJ 40 MG/0.4 ML DISP.SYRIN SUBCUT SCH (23:19)
[2018-02-18] MEDS ORDERED: ACETAMINOPHEN 325 MG TABLET ONE (23:27)
[2018-02-18] MEDS ORDERED: ACETAMINOPHEN 325 MG TABLET PO PRN (23:47)
[2018-02-19 05:48] LABS: ANION GAP 9 (5-19); BLOOD UREA NITROGEN 9 mg/dL (7-20); CALCIUM 7.6 mg/dL (8.4-10.2); CARBON DIOXIDE 28 mmol/L (22-30); CHLORIDE 94 mmol/L (98-107); GLUCOSE 114 mg/dL (75-110); POTASSIUM 3.8 mmol/L (3.6-5.0); SODIUM 130.5 mmol/L (137-145)
[2018-02-19] MEDS: PHARMACY COMMUNICATION ORDER MC SCH (06:29)
[2018-02-19] MEDS: LEVOTHYROXINE SODIUM 0.088 MG TABLET PO SCH (06:29)
[2018-02-19] MEDS: METRONIDAZOLE 500 MG TABLET PO SCH ×2 (06:29→14:43)
--- NOTE | 2018-02-19 08:35 | PDOC TRANSFER SUMMARY ---
General - Admit/Disc Date/PCP Admission Date/Primary Care Provider: 02/06/18 15:54 JUSTICE HARRIS Discharge Date: 02/19/18 - Discharge Diagnosis (1) Bilateral pneumonia Is this a current diagnosis for this admission?: Yes (2) Small bowel obstruction Is this a current diagnosis for this admission?: Yes (3) Status post closed fracture of right hip Is this a current diagnosis for this admission?: Yes (4) Chronic atrial fibrillation Is this a current diagnosis for this admission?: Yes (5) Hypertension Is this a current diagnosis for this admission?: Yes (6) Hypothyroidism Is this a current diagnosis for this admission?: Yes (7) Osteoarthritis involving multiple 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 of body Is this a current diagnosis for this admission?: Yes (8) Vitamin B 12 deficiency Is this a current diagnosis for this admission?: Yes (9) Antibiotic-associated diarrhea Is this a current diagnosis for this admission?: Yes - Additional Information Prescriptions: RX: Fluconazole [Diflucan 100 mg Tablet] 100 mg PO QPM #5 tablet RX: Lactobacillus Acidophilus [Bacid 250 mg Tablet] 250 mg PO BID #60 tab RX: Levothyroxine Sodium [Synthroid 0.088 mg Tablet] 0.088 mg PO Q6AM #60 tablet RX: Lidocaine [Lidoderm 5% (700 mg) Transdermal Patch] 1 patch TP QPM #30 adh..patch RX: Metronidazole [Flagyl 500 mg Tablet] 500 mg PO Q8 #16 tablet Home Medications: RX: Furosemide [Lasix 40 mg Tablet] 40 mg PO QAM 03/17/11 RX: Potassium Chloride [Klor-Con 10 Meq Capsule ER] 20 meq PO DAILY 03/17/11 RX: Calcium Carbonate [Calcium] 600 mg PO DAILY 04/25/13 RX: Fluticasone Propionate [Flonase Nasal [place] 50 Mcg/[place] 16 gm] 2 sprays NASL DAILY PRN 07/13/14 RX: Tramadol HCl/Acetaminophen [Tramadol-Acetaminophn 37.5-325] 1 each PO TIDP PRN 07/13/14 RX: Amlodipine Besylate [Norvasc 5 mg Tablet] 5 mg PO DAILY 01/31/18 RX: Cetirizine HCl [Zyrtec 5 mg Tablet] 5 mg PO DAILY 01/31/18 RX: Levothyroxine Sodium [Synthroid 0.088 mg Tablet] 0.088 mg PO Q6AM 01/31/18 RX: Bifidobacterium Infantis [Align 4 mg Capsule] 1 cap PO DAILY 02/01/18 RX: Cyanocobalamin (Vitamin B-12) [Vitamin B-12 Inj 1000 Mcg/1 ml Vial] 1,000 m cg IM .MONTHLY 02/01/18 RX: Duloxetine HCl [Cymbalta 20 mg Capsule.dr] 20 mg PO QHS 02/01/18 RX: Krill/Om-3/Dha/Epa/Phospho/Ast [Megared [place]-3 Krill Oil Sfgl] 1 each PO DAILY 02/01/18 RX: Rivaroxaban [Xarelto 15 mg Tablet] 15 mg PO QHS 02/01/18 RX: Rosuvastatin Calcium [Crestor 10 mg Tablet] 10 mg PO QHS 02/01/18 RX: Sennosides/Docusate 8.6-50 mg [Senna Plus Tablet] 1 each PO BID #120 tablet 02/05/18 RX: Fluconazole [Diflucan 100 mg Tablet] 100 mg PO QPM #5 tablet 02/19/18 RX: Lactobacillus Acidophilus [Bacid 250 mg Tablet] 250 mg PO BID #60 tab 02/19/18 RX: Levothyroxine Sodium [Synthroid 0.088 mg Tablet] 0.088 mg PO Q6AM #60 tablet 02/19/18 RX: Lidocaine [Lidoderm 5% (700 mg) Transdermal Patch] 1 patch TP QPM #30 adh..patch 02/19/18 RX: Metronidazole [Flagyl 500 mg Tablet] 500 mg PO Q8 #16 tablet 02/19/18 History of Present Illness Admission Date/PCP: 02/06/18 15:54 JUSTICE HARRIS Patient complains of: Chest pain, Dry cough History of Present Illness: WILLIAM FISH is a 87 year old female, She was just discharged yesterday, she was recently admitted on January 31, 2018 when she sustained a closed right hip fracture she underwent right hip hemiarthroplasty on 02/03/2018 she [facility]/2018. She was referred to the emergency room because of concern for pneumonia CT chest was done without contrast, it demonstrated small bilateral pleural lobar pneumonia also found was bilateral total shoulder arthroplasty. When I saw the patient on the floor she has distended abdomen, there was also edema affecting the abdominal wall, the extremities she is found crackled on auscultation of the chest there is associated hypoalbuminemia consequent third spacing. CT scan of the abdomen and pelvis without contrast demonstrated marked gastric distention, there is marked distention of small bowel loops to the abdomen, relative decompression of the colon there is a lower abdominal wall hernia which contains bowel which appears obstructed Hospital Course Hospital Course: She was admitted as a case of hospital acquired pneumonia due to her recent ho spitalization at this facility. Her sputum culture was no growth for bacteria but revealed nereida specie with reduced satya suggestive of possible fungal related upper respiratory tract infection and possible lower tract involvement. She was treated with oral Diflucan. She was treated with IV Cefepime and Levofloxacin for presumed bilateral lower lobe pneumonia with small effusion as reported on non-contrast chest CT scan evaluation. There was concern about partial small bowel obstruction due to her presenting abdominal distention and anterior wall hernia with loops of bowel. She was managed conservatively with decompression through NGT. Patient developed antibiotic associated diarrhea duri ng this hospitalization that was confirmed with positive stool C. difficile toxin titer. She was treated with oral Flagyl and will continue same for four more days. Her diarrhea have ceased for over 48 hours. She is tolerating oral feeding. She is participating in physical therapy session. she is agreeable to SNF short term rehabilitation program transfer. She will be discharged to SNF today. She will follow up in the office as instructed upon discharge from the SNF. Facility staff should call the office before discharge for office follow up appointment. Physical Exam Vital Signs: Temp Pulse Resp BP Pulse Ox 100.4 F 77 16 120/53 L 96 02/18/18 23:28 02/19/18 07:00 02/19/18 00:32 02/18/18 23:28 02/19/18 00:32 Intake & Output 02/18/18 02/19/18 02/20/18 06:59 06:59 06:59 Intake Total 710 830 Output Total 2950 1200 Balance -2240 -370 Weight 103.2 kg 99 kg General appearance: PRESENT: No acute distress, obese Head exam: PRESENT: atraumatic, normocephalic Eye exam: PRESENT: conjunctiva pink, EOMI, PERRLA. ABSENT: pallor, scleral icterus Ear exam: PRESENT: normal external ear exam Mouth exam: PRESENT: moist Respiratory exam: PRESENT: Clear to auscultation, decreased breath sounds at lung bases Cardiovascular exam: PRESENT: irregular rhythm, +S1, +S2. ABSENT: diastolic mur mur, systolic murmur GI/Abdominal exam: PRESENT: normal bowel sounds, soft. ABSENT: distended, guar ding, mass, organomegaly, rebound, tenderness Extremities exam: PRESENT: less pedal edema Neurological exam: PRESENT: alert, awake Psychiatric exam: PRESENT: appropriate affect, normal mood. ABSENT: homicidal ideation, suicidal ideation Skin exam: PRESENT: dry, warm Results Laboratory Results: 02/17/18 08:36 02/19/18 04:29 02/19/18 04:29 Sodium 130.5 L Potassium 3.8 Chloride 94 L Carbon Dioxide 28 Anion Gap 9 BUN 9 Creatinine 0.51 L Est GFR ( Amer) > 60 Est GFR (Non-Af Amer) > 60 Glucose 114 H Calcium 7.6 L 02/06/18 02/06/18 02/06/18 14:20 20:40 20:40 Creatine Kinase 42 CK-MB (CK-2) 1.18 Troponin I < 0.012 < 0.012 02/07/18 02/07/18 02/07/18 03:52 03:52 10:50 Creatine Kinase 40 39 CK-MB (CK-2) 1.18 Troponin I < 0.012 02/07/18 10:50 Creatine Kinase CK-MB (CK-2) 0.99 Troponin I < 0.012 Impressions: Abdomen/Pelvis CT 02/07/18 00:00 IMPRESSION: High-grade partial small bowel obstruction secondary to a partially obstructed loop of small bowel in at lower abdominal wall ventral hernia. KUB X-Ray 02/08/18 06:00 IMPRESSION: Large amount of stool throughout the colon. Stomach decompressed by nasogastric tube. Distended small bowel loops in the mid epigastrium. Abnormal but nonspecific bowel gas pattern. Transfer Plan - Disposition Transfer Plan: Transfer to [facility] for short term rehabilitation service. She will follow up in the office as instructed before discharge from the SNF. - Time Spent with Patient Time spent with patient: Greater than 30 Minutes - more than 50% was psent in care coordination during her discharge intervention. Qualifiers - * PATIENT BEING DISCHARGED WITH ANY OF THE FOLLOWING DIAGNOSIS: No Plan Discharge Plan: Transfer to [facility] for short term rehabilitation service. She will follow up in the office as instructed before discharge from the SNF.
[2018-02-19] MEDS: LACTOBACILLUS ACIDOPHILUS 250 MG TAB PO SCH ×2 (10:05→17:50)
[2018-02-19] MEDS: FUROSEMIDE 20 MG TABLET PO SCH ×2 (10:05→17:50)
[2018-02-19 12:14] VITALS: BP 103/47
[2018-02-19] MEDS: LEVOFLOXACIN 750 MG TABLET PO SCH (17:50)
[2018-02-19] MEDS: FLUCONAZOLE 100 MG TABLET PO SCH (17:51)
[2018-02-19] MEDS: LIDOCAINE 5% (700 MG) TRANSDERMAL ADH..PATCH TP SCH (17:52)
== END 2018-02-19 18:35 | DRG 193 ==
LOC: ER 13:30 → EH 15:54 → 4N 19:00
PROVIDERS: ADMIT Internal Medicine; ATTEND Internal Medicine Geriatric Medicine
PROC: 0D9670Z Drainage of Stomach with Drainage Device, Via Natural or Artificial Opening (ICD-10-PCS; principal; 2018-02-07)
DX: J18.9 Pneumonia, unspecified organism (principal); B37.1 Pulmonary candidiasis; K56.609 Unspecified intestinal obstruction, unspecified as to partial versus complete obstruction; K52.1 Toxic gastroenteritis and colitis; A04.72 Enterocolitis due to Clostridium difficile, not specified as recurrent; T36.95XA Adverse effect of unspecified systemic antibiotic, initial encounter; E88.09 Other disorders of plasma-protein metabolism, not elsewhere classified; E03.9 Hypothyroidism, unspecified; S72.001D Fracture of unspecified part of neck of right femur, subsequent encounter for closed fracture with routine healing; I48.2 Chronic atrial fibrillation; I10 Essential (primary) hypertension; E53.8 Deficiency of other specified B group vitamins; M19.90 Unspecified osteoarthritis, unspecified site; Z79.899 Other long term (current) drug therapy; Z90.49 Acquired absence of other specified parts of digestive tract; Z96.653 Presence of artificial knee joint, bilateral; Z96.619 Presence of unspecified artificial shoulder joint
CPT/HCPCS: 36415; 36600; 71045; 71250; 74018; 74176; 80048; 80053; 80061; 80076; 80307; 81001; 82140; 82150; 82550; 82553; 82570; 82803; 83036; 83605; 83690; 83735; 84100; 84156; 84439; 84443; 84484; 85025; 87040; 87070; 87086; 87205; 87493; 93005; 93010; 94640; 94660; 94667; 94668; 94799; 96361; 96365; 96375; 99291; G8978-GP; G8979-GP; J0692; J1650; J1940; J1956; J2543; J3010; J3370; J3490; J7030; J7620

== ENCOUNTER → 2018-11-01 | Outpatient (CLI) | payer MEDICARE, BC ==
[2018-11-01 10:38] LABS: ABSOLUTE BASOPHILS # (AUTO) 0.1 10^3/uL (0.0-0.2); ABSOLUTE EOSINOPHILS # (AUTO) 0.3 10^3/uL (0.0-0.6); ABSOLUTE LYMPHOCYTES (AUTO) 1.8 10^3/uL (0.5-4.7); ABSOLUTE MONOCYTES (AUTO) 0.7 10^3/uL (0.1-1.4); BASOPHILS % (AUTO) 0.8 % (0-2); EOSINOPHILS % (AUTO) 4.4 % (0-6); HEMATOCRIT 32.7 % (36.0-47.0); MEAN CORPUSCULAR HEMOGLOBIN 29.5 pg (27.0-33.4); MEAN CORPUSCULAR HGB CONC 33.5 g/dL (32.0-36.0); MEAN CORPUSCULAR VOLUME 88 fl (80-97); MONOCYTES % (AUTO) 8.6 % (3-13); PLATELET COUNT 380 10^3/uL (150-450); RED BLOOD COUNT 3.72 10^6/uL (3.72-5.28); RED CELL DISTRIBUTION WIDTH 14.3 % (11.5-14.0); SEGMENTED NEUTROPHILS % (AUTO) 63.2 % (42-78); TOTAL CELLS COUNTED % (AUTO) 100 %; WHITE BLOOD COUNT 7.9 10^3/uL (4.0-10.5)
[2018-11-01 11:02] LABS: ALBUMIN 3.8 g/dL (3.5-5.0); ALKALINE PHOSPHATASE 155 U/L (38-126); ANION GAP 11 (5-19); ASPARTATE AMINO TRANSFERASE 22 U/L (14-36); BILIRUBIN,DIRECT 0.2 mg/dL (0.0-0.4); BILIRUBIN,TOTAL 0.2 mg/dL (0.2-1.3); BLOOD UREA NITROGEN 14 mg/dL (7-20); C-REACTIVE PROTEIN 24.8 mg/L (<10.0); CALCIUM 9.4 mg/dL (8.4-10.2); CARBON DIOXIDE 31 mmol/L (22-30); CHLORIDE 96 mmol/L (98-107); GLUCOSE 78 mg/dL (75-110); POTASSIUM 4.3 mmol/L (3.6-5.0); TOTAL PROTEIN 6.8 g/dL (6.3-8.2)
[2018-11-01 11:24] LABS: ERYTHROCYTE SEDIMENTATION RATE 98 mm/hr (0-30)
== END ==
LOC: OD 09:54
PROVIDERS: ATTEND Orthopaedic Surgery Sports Medicine
DX: M79.644 Pain in right finger(s) (principal); M79.641 Pain in right hand; Z96.641 Presence of right artificial hip joint; M16.11 Unilateral primary osteoarthritis, right hip; I10 Essential (primary) hypertension
CPT/HCPCS: 36415; 80053; 85025; 85652; 86140

== ENCOUNTER → 2018-11-05 | Outpatient (CLI) | payer MEDICARE, BC ==
--- NOTE | 2018-11-05 15:17 | RADIOLOGY REPORT (SQ) ---
EXAM DESCRIPTION: CT RT LOWER EXTREMITY WITHOUT COMPLETED DATE/TIME: 11/05/2018 8:03 am REASON FOR STUDY: RIGHT HIP PAIN (M25.551) M25.551 PAIN IN RIGHT HIP COMPARISON: CT abdomen pelvis 02/07/2018 Right hip films 01/24/2018 Right hip films 01/31/2018 TECHNIQUE: CT scan of the right hip performed without intravenous or oral contrast. Images reviewed with soft tissue and bone windows. Reconstructed coronal and sagittal MPR images reviewed. All ventura ges stored on PACS. All CT scanners at this facility use dose modulation, iterative reconstruction, and/or weight based d osing when appropriate to reduce radiation dose to as low as reasonably achievable (ALARA). [facility]: Dose Right [facility]: CareDose [facility]: Dose Right [facility]: Teradose 4D [facility]: [employer] RADIATION DOSE: 24.8 mGy. LIMITATIONS: There is streak artifact from the pre-existing right hip replacement prosthesis FINDINGS: Age-appropriate osteopenia. Visualized right hemipelvis in the field of view is intact. There is a right-sided femoral head replacement. There is dense bony sclerosis around the periphery of the femoral component, with extensive periosteal new bone formation. Findings are worrisome for l oosening of the prosthesis. Chronic low-grade infection could mimic this appearance. Consider three -phase bone scan for followup. No fracture of the the [place] femur in the field of view. Soft tissues demonstrate atherosclerotic arterial vascular calcification. No soft tissue mass or hem atoma. IMPRESSION: Sclerosis and periosteal new bone along the right proximal femur adjacent to a femoral h ead prosthesis. Findings could be seen with either loosening or infection. Consider three-phase bon e scan for followup. TECHNICAL DOCUMENTATION: JOB ID: [id number] Quality ID # [id number]: Final reports with documentation of one or more dose reduction techniques (e.g., Au tomated exposure control, adjustment of the mA and/or kV according to patient size, use of iterative reconstruction technique) 2010 [employer]- All Rights Reserved Reading location - IP/workstation name: [email or web address]
== END ==
LOC: RAD 07:15
PROVIDERS: ATTEND Orthopaedic Surgery Sports Medicine
DX: M25.551 Pain in right hip (principal)

== ENCOUNTER → 2018-11-10 | Day surgery (SDC) | payer MEDICARE, BC ==
--- NOTE | 2018-11-11 08:43 | RADIOLOGY REPORT (SQ) ---
EXAM DESCRIPTION: FLUORO/NEEDLE PLACEMENT COMPLETED DATE/TIME: 11/10/2018 3:55 pm REASON FOR STUDY: MECH LOOSENING OF INTERNAL RIGHT HIP PROSTHETIC JOINT, INIT (T84.030A) COMPARISON: None. TECHNIQUE: The patient was placed supine on the radiology table in the right hip was prepped and justin ped in a sterile fashion and local anesthesia was achieved using 1% lidocaine. RADIATION DOSE: Fluoro time 2 minutes. 1 image acquired and saved to PACs. LIMITATIONS: None. FINDINGS: Multiple attempts were made in several areas of the hip joint to aspirate fluid. These at tempts were unsuccessful. 2 mL of non preservative-free sterile saline was instilled into the joint area, but none could be aspirated back. IMPRESSION: Unsuccessful right hip joint aspiration. COMMENT: None TECHNICAL DOCUMENTATION: JOB ID: [id number] [employer]- All Rights Reserved Reading location - IP/workstation name: [email or web address]
== END ==
LOC: RAD 13:09
PROVIDERS: ATTEND Orthopaedic Surgery Sports Medicine
DX: T84.030A Mechanical loosening of internal right hip prosthetic joint, initial encounter (principal); X58.XXXA Exposure to other specified factors, initial encounter
CPT/HCPCS: 77002

== ENCOUNTER → 2018-12-29 | Outpatient (CLI) | payer MEDICARE, BC ==
--- NOTE | 2018-12-30 16:06 | RADIOLOGY REPORT (SQ) ---
EXAM DESCRIPTION: VENOUS BILATERAL LOWER COMPLETED DATE/TIME: 12/29/2018 3:25 pm REASON FOR STUDY: BLE SWELLING R22.41 LOCALIZED SWELLING, MASS AND LUMP, RIGHT LOWER LIMB COMPARISON: 03/27/2015 bilateral lower extremity venous Doppler TECHNIQUE: Dynamic and static adler scale and color images acquired of both lower extremity venous sy stems. Selected spectral images acquired with additional compression and augmentation maneuvers. Imag es stored on PACS. LIMITATIONS: None. FINDINGS: RIGHT LEG COMMON FEMORAL AND FEMORAL: Normal phasicity, compression and augmentation. No visualized echogenic m aterial on adler scale. No defects on color images. POPLITEAL: Normal compression and augmentation. No visualized echogenic material on adler scale. No de fects on color images. CALF VESSELS: Normal compression and augmentation. No visualized echogenic material on adler scale. No defects on color image. GSV AND SSV: Normal compression. No visualized echogenic material on adler scale. No defects on color images. ANY DEEP VENOUS INSUFFICIENCY: Not evaluated. ANY EVIDENCE OF POPLITEAL CYST: No. OTHER: Diffuse subcutaneous edema in the right lower leg LEFT LEG COMMON FEMORAL AND FEMORAL: Normal phasicity, compression and augmentation. No visualized echogenic m aterial on adler scale. No defects on color images. POPLITEAL: Normal compression and augmentation. No visualized echogenic material on adler scale. No de fects on color images. CALF VESSELS: Normal compression and augmentation. No visualized echogenic material on adler scale. No defects on color images. GSV AND SSV: Normal compression. No visualized echogenic material on adler scale. No defects on color images. ANY DEEP VENOUS INSUFFICIENCY: Not evaluated. ANY EVIDENCE POPLITEAL CYST: No. OTHER: Diffuse subcutaneous edema in the left lower leg IMPRESSION: NO EVIDENCE DVT OR SVT IN EITHER LEG. TECHNICAL DOCUMENTATION: JOB ID: [id number] [employer]- All Rights Reserved Reading location - IP/workstation name: [email or web address]
== END ==
LOC: SP 13:08
PROVIDERS: ATTEND Internal Medicine Geriatric Medicine
DX: R60.0 Localized edema (principal)
CPT/HCPCS: 93970

== ENCOUNTER 2019-01-12 10:06 | Inpatient (IN) | payer MEDICARE, BC ==
[2019-01-12 11:41] LABS: ARTERIAL BLOOD BASE EXCESS 0.5 mmol/L; ARTERIAL BLOOD H2CO3 1.23 mmol/L (1.05-1.35); ARTERIAL BLOOD HCO3 25.2 mmol/L (20-24); ARTERIAL BLOOD O2 SATURATION 96.7 % (94-98); ARTERIAL BLOOD PCO2 40.9 mmHg (35-45); ARTERIAL BLOOD PH 7.41 (7.35-7.45); ARTERIAL BLOOD PO2 87.4 mmHg (80-100); ARTERIAL BLOOD TOTAL CO2 26.5 mmol/L (21-25)
[2019-01-12 11:44] LABS: ARTERIAL BLOOD FIO2 28%
[2019-01-12] MEDS: FUROSEMIDE INJ/PF 40 MG/4 ML SDV IV SCH ×2 (11:59→21:47)
[2019-01-12] MEDS: PANTOPRAZOLE SODIUM 40 MG TABLET.DR PO SCH (11:59)
[2019-01-12 12:10] LABS: ABSOLUTE BASOPHILS # (AUTO) 0.1 10^3/uL (0.0-0.2); ABSOLUTE EOSINOPHILS # (AUTO) 0.3 10^3/uL (0.0-0.6); ABSOLUTE LYMPHOCYTES (AUTO) 1.3 10^3/uL (0.5-4.7); ABSOLUTE MONOCYTES (AUTO) 0.6 10^3/uL (0.1-1.4); ABSOLUTE NEUT (AUTO) 5.2 10^3/uL (1.7-8.2); EOSINOPHILS % (AUTO) 4.1 % (0-6); HEMATOCRIT 30.3 % (36.0-47.0); HEMOGLOBIN 9.8 g/dL (12.0-15.5); MEAN CORPUSCULAR HEMOGLOBIN 29.5 pg (27.0-33.4); MEAN CORPUSCULAR HGB CONC 32.4 g/dL (32.0-36.0); MEAN CORPUSCULAR VOLUME 91 fl (80-97); MONOCYTES % (AUTO) 7.8 % (3-13); PLATELET COUNT 426 10^3/uL (150-450); RED BLOOD COUNT 3.33 10^6/uL (3.72-5.28); RED CELL DISTRIBUTION WIDTH 17.8 % (11.5-14.0); SEGMENTED NEUTROPHILS % (AUTO) 70.1 % (42-78); TOTAL CELLS COUNTED % (AUTO) 100 %; WHITE BLOOD COUNT 7.5 10^3/uL (4.0-10.5)
[2019-01-12 12:51] LABS: ALBUMIN 3.6 g/dL (3.5-5.0); ALKALINE PHOSPHATASE 157 U/L (38-126); ANION GAP 12 (5-19); ASPARTATE AMINO TRANSFERASE 23 U/L (14-36); BILIRUBIN,DIRECT 0.2 mg/dL (0.0-0.4); BILIRUBIN,TOTAL 0.4 mg/dL (0.2-1.3); BLOOD UREA NITROGEN 8 mg/dL (7-20); CALCIUM 9.2 mg/dL (8.4-10.2); CARBON DIOXIDE 24 mmol/L (22-30); CHLORIDE 102 mmol/L (98-107); GLUCOSE 85 mg/dL (75-110); POTASSIUM 4.6 mmol/L (3.6-5.0); TOTAL PROTEIN 6.9 g/dL (6.3-8.2)
--- NOTE | 2019-01-12 13:22 | RADIOLOGY REPORT (SQ) ---
EXAM DESCRIPTION: CHEST 2 VIEWS COMPLETED DATE/TIME: 01/12/2019 1:08 pm REASON FOR STUDY: CHF COMPARISON: CT chest 02/07/2018 Chest films 02/13/2018, 02/06/2018 EXAM PARAMETERS: NUMBER OF VIEWS: two views TECHNIQUE: Digital Frontal and Lateral radiographic views of the chest acquired. RADIATION DOSE: NA LIMITATIONS: none FINDINGS: LUNGS AND PLEURA: Trace bilateral pleural effusions are present There is bibasilar airspace disease likely atelectasis. Pneumonia could not entirely be excluded. No pneumothorax. MEDIASTINUM AND HILAR STRUCTURES: No masses or contour abnormalities. HEART AND VASCULAR STRUCTURES: Stable cardiomegaly BONES: Old humeral head replacements. HARDWARE: None in the chest. OTHER: Gaseous distension of bowel under the hemidiaphragms. IMPRESSION: Trace bilateral pleural effusions Bibasilar airspace disease likely atelectasis Gaseous distention of bowel under the hemidiaphragms TECHNICAL DOCUMENTATION: JOB ID: [id number] [employer]- All Rights Reserved Reading location - IP/workstation name: [email or web address]
[2019-01-12] MEDS ORDERED: LIDOCAINE 5% (700 MG) TRANSDERMAL ADH..PATCH TP PRN (15:36)
[2019-01-12] MEDS ORDERED: (PENDING PHARMACY ID) (Tramadol Hcl/Acetaminophen [Ultracet 37.5 Mg/325 Mg Tablet] 1 TAB) PO PRN (15:36)
[2019-01-12] MEDS ORDERED: BENZONATATE 100 MG CAPSULE PO PRN (15:36)
[2019-01-12] MEDS ORDERED: NYSTATIN CREAM 15 GM TOP PRN (15:36)
[2019-01-12] MEDS: ATORVASTATIN CALCIUM 20 MG TABLET PO SCH (17:05)
[2019-01-12] MEDS: DULOXETINE HCL 20 MG CAPSULE.DR PO SCH (21:46)
--- NOTE | 2019-01-12 23:38 | EKG REPORT ---
SEVERITY:- ABNORMAL ECG - ATRIAL FIBRILLATION BORDERLINE LEFT AXIS DEVIATION LOW VOLTAGE THROUGHOUT BORDERLINE R WAVE PROGRESSION, ANTERIOR LEADS NONSPECIFIC T ABNORMALITIES, LATERAL LEADS : Confirmed by: Clint Alvarado 12-Jan-2019 23:38:07
[2019-01-13] MEDS: LEVOTHYROXINE SODIUM 0.088 MG TABLET PO SCH (06:19)
[2019-01-13] MEDS: FLUTICASONE NASAL SPRAY 50 MCG/SPRY 120 SPRAY/16 GM NASL SCH (09:08)
[2019-01-13] MEDS: FUROSEMIDE INJ/PF 40 MG/4 ML SDV IV SCH ×2 (09:09→22:06)
[2019-01-13] MEDS: POTASSIUM CHLORIDE 10 MEQ TABLET.ER PO SCH (09:10)
[2019-01-13] MEDS: AMLODIPINE BESYLATE 5 MG TABLET PO SCH (09:10)
[2019-01-13] MEDS: CALCIUM CARBONATE 250 MG/VITAMIN D3 125 UNIT TABLET PO SCH (09:10)
[2019-01-13] MEDS: PANTOPRAZOLE SODIUM 40 MG TABLET.DR PO SCH (09:10)
[2019-01-13] MEDS ORDERED: EPA PO SCH (10:00)
[2019-01-13] MEDS ORDERED: [UNRECOGNIZED DRUG - OTHER] PO SCH (10:00)
[2019-01-13] MEDS ORDERED: DHA PO SCH (10:00)
[2019-01-13] MEDS ORDERED: [UNRECOGNIZED DRUG - OTHER] PO SCH (10:00)
[2019-01-13] MEDS ORDERED: KRILL PO SCH (10:00)
[2019-01-13] MEDS ORDERED: CALCIUM CARBONATE PO SCH (10:00)
[2019-01-13] MEDS ORDERED: RIVAROXABAN 15 MG TABLET PO SCH (10:00)
[2019-01-13] MEDS ORDERED: VITAMIN D3 PO SCH (10:00)
[2019-01-13] MEDS ORDERED: (PENDING PHARMACY ID) (Potassium Chloride [Klor-Con M20] 20 MEQ) PO SCH (10:00)
[2019-01-13] MEDS ORDERED: BIFIDOBACTERIUM INFANTIS 4 MG PO SCH (10:00)
[2019-01-13] MEDS ORDERED: AST PO SCH (10:00)
--- NOTE | 2019-01-13 10:05 | PDOC PROGRESS REPORT ---
Subjective Progress Note for:: 01/13/19 Subjective:: Patient was admitted for the congestive heart failure per Dr. Fuentes past signout yesterday no H&P yet patient according To have increasing the more leg swelling since last several months Patient had a history of the right hip surgery recently also in the rehabs also with congestive heart failure currently see her Dr. Alvarado as outpatients last seen in the last January Patient had a echocardiogram order Patient was put on IV Lasix Patient's 2 days denied any chest pain denied any shortness of the breath Reason For Visit: ACUTE CHRONIC CHF,HTN,HYPOTHYROIDISM,VITAMIN B12 Physical Exam Vital Signs: Temp Pulse Resp BP Pulse Ox 97.9 F 77 16 137/58 H 96 01/13/19 08:00 01/13/19 08:00 01/13/19 08:00 01/13/19 08:00 01/13/19 08:00 Intake & Output 01/12/19 01/13/19 01/14/19 06:59 06:59 06:59 Intake Total 300 Output Total 3040 Balance -2740 Weight 95.2 kg General appearance: PRESENT: no acute distress, well-developed, well-nourished Head exam: PRESENT: atraumatic, normocephalic Eye exam: PRESENT: conjunctiva pink, EOMI, PERRLA. ABSENT: scleral icterus Ear exam: PRESENT: normal external ear exam Mouth exam: PRESENT: moist, tongue midline Neck exam: PRESENT: full ROM. ABSENT: carotid bruit, JVD, lymphadenopathy, thyromegaly Respiratory exam: PRESENT: clear to auscultation mendoza Cardiovascular exam: PRESENT: RRR. ABSENT: diastolic murmur, rubs, systolic murmur Vascular exam: PRESENT: normal capillary refill GI/Abdominal exam: PRESENT: normal bowel sounds, soft. ABSENT: distended, guarding, mass, organolmegaly, rebound, tenderness Rectal exam: PRESENT: deferred Extremities exam: PRESENT: pedal edema Additional comments: Bilateral leg edema with a small ulceration on the left leg Neurological exam: PRESENT: alert, awake, oriented to person, oriented to place, oriented to time, oriented to situation, CN II-XII grossly intact. ABSENT: motor sensory deficit Psychiatric exam: PRESENT: appropriate affect, normal mood. ABSENT: homicidal ideation, suicidal ideation Skin exam: PRESENT: dry, intact, warm. ABSENT: cyanosis, rash Results Laboratory Results: 01/12/19 11:46 01/12/19 11:46 01/12/19 01/12/19 01/12/19 11:30 11:46 11:46 WBC 7.5 RBC 3.33 L Hgb 9.8 L Hct 30.3 L MCV 91 MCH 29.5 MCHC 32.4 RDW 17.8 H Plt Count 426 Seg Neutrophils % 70.1 Carbonic Acid 1.23 HCO3/H2CO3 Ratio 20:1 ABG pH 7.41 ABG pCO2 40.9 ABG pO2 87.4 ABG HCO3 25.2 H ABG O2 Saturation 96.7 ABG Base Excess 0.5 FiO2 28% Sodium 137.6 Potassium 4.6 Chloride 102 Carbon Dioxide 24 Anion Gap 12 BUN 8 Creatinine 0.59 Est GFR ( Amer) > 60 Glucose 85 Calcium 9.2 Total Bilirubin 0.4 AST 23 Alkaline Phosphatase 157 H Total Protein 6.9 Albumin 3.6 01/12/19 11:46 NT-Pro-B Natriuret Pep 787 H Impressions: Chest X-Ray 01/12/19 10:24 IMPRESSION: Trace bilateral pleural effusions Bibasilar airspace disease likely atelectasis Gaseous distention of bowel under the hemidiaphragms Assessment & Plan - Diagnosis (1) Acute congestive heart failure Qualifiers: Heart failure type: unspecified Qualified Code(s): I50.9 - Heart failure, unspecified Is this a current diagnosis for this admission?: Yes Plan: Continues to IV Lasix We will get the echo reports on cardiology consult (2) Chronic atrial fibrillation Is this a current diagnosis for this admission?: Yes Plan: Continue on Xarelto (3) Hypertension Qualifiers: Hypertension type: essential hypertension Qualified Code(s): I10 - Essential (primary) hypertension Is this a current diagnosis for this admission?: Yes Plan: Currently all stable (4) Hypothyroidism Qualifiers: Hypothyroidism type: acquired Qualified Code(s): E03.9 - Hypothyroidism, unspecified Is this a current diagnosis for this admission?: Yes Plan: TSH and free T4 (5) Vitamin B 12 deficiency Is this a current diagnosis for this admission?: Yes - Time Time Spent with patient: 25-34 minutes Level of Care: IMCU Medications reviewed and adjusted accordingly: Yes Anticipated discharge: Home with Homehealth Within: Other - Plan Summary Plan Summary: Continues to IV Lasix Consult cardiology Wait for echo report Physical therapy evaluations
--- NOTE | 2019-01-13 15:28 | XCELERA REPORT ---
[address] [address] Lower Extremity Venous Evaluation Procedure: Color flow and duplex imaging bilaterally of the veins of the lower extremities as well as the Common Femoral veins. Right Sided Venous Evaluation Adequate visualization , except for parts of distal Femoral and Peroneal veins. Normal vessel filling wall to wall, compression and augmentation as well as Colour flow down to the infrageniculate veins. Left Sided Venous Evaluation Adequate visualization , except for Peroneal vein. Normal vessel filling wall to wall, compression and augmentation as well as Colour flow down to the infrageniculate veins. Interpretation Summary No duplex evidence of DVT or obstruction in the bilateral lower extremities. Study limitations noted. Name: WILLIAM FISH Age: 88 yrs Gender: Female : 1930 Patient Status: Inpatient Patient Location: [facility]^A Study Date: 01/13/2019 11:54 AM Reason For Study: leg edema/r/o dvt Ordering Physician: JUAN HANNA Performed By: Stevan Bolaños : JUAN HANNA > Don Ramos
[2019-01-13 15:30] LABS: FREE T4 (FREE THYROXINE) 0.71 ng/dL (0.78-2.19)
[2019-01-13 15:44] LABS: THYROID STIMULATING HORMONE 1.35 uIU/mL (0.47-4.68)
[2019-01-13] MEDS: ATORVASTATIN CALCIUM 20 MG TABLET PO SCH (18:02)
--- NOTE | 2019-01-13 22:01 | XCELERA REPORT ---
[address] [address] Transthoracic Echocardiogram Report Name: WILLIAM FISH Age: 88 yrs Gender: Female : 1930 Patient Status: Inpatient Patient Location: [facility]^A Study Date: 01/12/2019 06:10 PM Height: 64 in Weight: 214 lb BSA: 2.0 m2 Procedure: A two-dimensional transthoracic echocardiogram with color flow and Doppler was performed. Study Quality: Technically suboptimal. The study was technically difficult with many images being suboptimal in quality. Reason For Study: CHF Ordering Physician: JUSTICE HARRIS Performed By: Shiela Ramos Interpretation Summary Probably normal LV size,wall motion and .LVEF normal at 60%.Probably no LVH. There is no thrombus. Cannot assess for ASD ,VSD , or PFO. Right atrium not well visualized secondary to technical limitations The left atrium is moderately dilated. There is no mitral valve stenosis. There is no evidence of mitral valve prolapse. There is no vegetation seen on the mitral valve. There is a mild amount of mitral regurgitation There is no aortic valve stenosis There is aortic sclerosis without aortic stenosis. No aortic regurgitation is present. There is no tricuspid stenosis. There is a mild amount of tricuspid regurgitation RVSP is 46 mm of Hg , with RA mean of 10.Strongly suspect underestimation of TR jet and hence probably under estimation of RVSP.Recommend repeat Tricuspid valve interogation. There is no pulmonic valvular stenosis. The aortic root is not well visualized but is probably normal size. The inferior vena cava appeared normal and decreased > 50% with respiration (RAP 5-10 mmHg) There is no pericardial effusion. MMode/2D Measurements & Calculations RVDd: 3.0 cm LVIDd: 4.8 cm FS: 30.1 % Ao root diam: 3.3 cm IVSd: 1.0 cm LVIDs: 3.4 cm EDV(Teich): 107.5 ml Ao root area: 8.4 cm2 LVPWd: 1.1 cm ESV(Teich): 45.9 ml LA dimension: 3.9 cm EF(Teich): 57.3 % Doppler Measurements & Calculations MV E max junior: MV P1/2t max junior: Ao V2 max: LV V1 max P.1 cm/sec 129.0 cm/sec 123.6 cm/sec 1.8 mmHg MV P1/2t: 45.3 msec Ao max P.1 mmHgLV V1 max: MVA(P1/2t): 4.9 cm2 67.6 cm/sec MV dec slope: 833.8 cm/sec2 MV dec time: 0.15 sec PA V2 max: TR max junior: MV P1/2t-pr_phl: 80.8 cm/sec 298.6 cm/sec 45.3 msec PA max P.6 mmHg TR max P.7 mmHg Left Ventricle Probably normal LV size,wall motion and .LVEF normal at 60%.Probably no LVH. LV diastolic function could not be adequately assessed due to atrial fibrilation. There is no thrombus. Cannot assess for ASD ,VSD , or PFO. Right Ventricle The right ventricle is not well visualized secondary to technical limitations. Atria Right atrium not well visualized secondary to technical limitations. The left atrium is moderately dilated. Mitral Valve There is no evidence of mitral valve prolapse. There is no vegetation seen on the mitral valve. There is no mitral valve stenosis. There is a mild amount of mitral regurgitation. Aortic Valve There is no aortic valvular vegetation. There is no aortic valve stenosis. There is aortic sclerosis without aortic stenosis. No aortic regurgitation is present. Tricuspid Valve There is no tricuspid stenosis. There is a mild amount of tricuspid regurgitation. RVSP is 46 mm of Hg , with RA mean of 10.Strongly suspect underestimation of TR jet and hence probably under estimation of RVSP.Recommend repeat Tricuspid valve interogation. Pulmonic Valve There is no pulmonic valvular stenosis. There is a trace amount of pulmonic regurgitation. Great Vessels The aortic root is not well visualized but is probably normal size. The inferior vena cava appeared normal and decreased > 50% with respiration (RAP 5-10 mmHg). Effusions There is no pericardial effusion. : JUSTICE HARRIS Lakshmi
[2019-01-13] MEDS: RIVAROXABAN 15 MG TABLET PO SCH (22:06)
[2019-01-13] MEDS: DULOXETINE HCL 20 MG CAPSULE.DR PO SCH (22:06)
[2019-01-14] MEDS: LEVOTHYROXINE SODIUM 0.088 MG TABLET PO SCH (05:19)
[2019-01-14 05:37] LABS: ABSOLUTE BASOPHILS # (AUTO) 0.1 10^3/uL (0.0-0.2); ABSOLUTE EOSINOPHILS # (AUTO) 0.3 10^3/uL (0.0-0.6); ABSOLUTE LYMPHOCYTES (AUTO) 1.3 10^3/uL (0.5-4.7); ABSOLUTE MONOCYTES (AUTO) 0.7 10^3/uL (0.1-1.4); ABSOLUTE NEUT (AUTO) 4.1 10^3/uL (1.7-8.2); BASOPHILS % (AUTO) 1.1 % (0-2); EOSINOPHILS % (AUTO) 4.1 % (0-6); HEMATOCRIT 29.3 % (36.0-47.0); HEMOGLOBIN 9.6 g/dL (12.0-15.5); LYMPHOCYTES % (AUTO) 20.6 % (13-45); MEAN CORPUSCULAR HEMOGLOBIN 29.4 pg (27.0-33.4); MEAN CORPUSCULAR HGB CONC 32.7 g/dL (32.0-36.0); MEAN CORPUSCULAR VOLUME 90 fl (80-97); MONOCYTES % (AUTO) 10.4 % (3-13); PLATELET COUNT 416 10^3/uL (150-450); RED BLOOD COUNT 3.27 10^6/uL (3.72-5.28); RED CELL DISTRIBUTION WIDTH 17.2 % (11.5-14.0); SEGMENTED NEUTROPHILS % (AUTO) 63.8 % (42-78); TOTAL CELLS COUNTED % (AUTO) 100 %; WHITE BLOOD COUNT 6.4 10^3/uL (4.0-10.5)
[2019-01-14 05:58] LABS: ANION GAP 9 (5-19); BLOOD UREA NITROGEN 10 mg/dL (7-20); CALCIUM 8.5 mg/dL (8.4-10.2); CARBON DIOXIDE 31 mmol/L (22-30); CHLORIDE 98 mmol/L (98-107); GLUCOSE 112 mg/dL (75-110); POTASSIUM 4.1 mmol/L (3.6-5.0)
[2019-01-14 06:26] LABS: FREE T3 1.89 pg/mL (2.77-5.27)
[2019-01-14] MEDS: POTASSIUM CHLORIDE 10 MEQ TABLET.ER PO SCH (09:25)
[2019-01-14] MEDS: AMLODIPINE BESYLATE 5 MG TABLET PO SCH (09:25)
[2019-01-14] MEDS: CALCIUM CARBONATE 250 MG/VITAMIN D3 125 UNIT TABLET PO SCH (09:25)
[2019-01-14] MEDS: FLUTICASONE NASAL SPRAY 50 MCG/SPRY 120 SPRAY/16 GM NASL SCH (09:26)
[2019-01-14] MEDS: PANTOPRAZOLE SODIUM 40 MG TABLET.DR PO SCH (09:26)
[2019-01-14] MEDS: FUROSEMIDE INJ/PF 40 MG/4 ML SDV IV SCH ×2 (09:26→22:06)
--- NOTE | 2019-01-14 10:30 | PDOC PROGRESS REPORT ---
Subjective Progress Note for:: 01/14/19 Subjective:: Patient is currently doing much better Patient echocardiogram with a normal EF Dr. PERERA thought patients have underlying pulmonary hypertension's patient's ultrasound is negative for DVT Reason For Visit: ACUTE CHRONIC CHF,HTN,HYPOTHYROIDISM,VITAMIN B12 Physical Exam Vital Signs: Temp Pulse Resp BP Pulse Ox 97.3 F 67 14 100/45 L 100 01/14/19 08:17 01/14/19 08:17 01/14/19 08:17 01/14/19 08:17 01/14/19 08:17 Intake & Output 01/13/19 01/14/19 01/15/19 06:59 06:59 06:59 Intake Total 300 1200 Output Total 3040 2300 Balance -2740 -1100 Weight 95.2 kg 91.3 kg General appearance: PRESENT: no acute distress, well-developed, well-nourished Head exam: PRESENT: atraumatic, normocephalic Eye exam: PRESENT: conjunctiva pink, EOMI, PERRLA. ABSENT: scleral icterus Ear exam: PRESENT: normal external ear exam Mouth exam: PRESENT: moist, tongue midline Neck exam: PRESENT: full ROM. ABSENT: carotid bruit, JVD, lymphadenopathy, thyromegaly Respiratory exam: PRESENT: clear to auscultation mendoza Cardiovascular exam: PRESENT: RRR. ABSENT: diastolic murmur, rubs, systolic murmur Pulses: PRESENT: normal dorsalis pedis pul, +2 pedal pulses bilateral Vascular exam: PRESENT: normal capillary refill GI/Abdominal exam: PRESENT: normal bowel sounds, soft. ABSENT: distended, guarding, mass, organolmegaly, rebound, tenderness Rectal exam: PRESENT: deferred Extremities exam: PRESENT: pedal edema Neurological exam: PRESENT: alert, awake, oriented to person, oriented to place, oriented to time, oriented to situation, CN II-XII grossly intact. ABSENT: motor sensory deficit Psychiatric exam: PRESENT: appropriate affect, normal mood. ABSENT: homicidal ideation, suicidal ideation Skin exam: PRESENT: dry, intact, warm. ABSENT: cyanosis, rash Results Laboratory Results: 01/14/19 04:49 01/14/19 04:49 01/13/19 01/14/19 01/14/19 14:28 04:49 04:49 WBC 6.4 RBC 3.27 L Hgb 9.6 L Hct 29.3 L MCV 90 MCH 29.4 MCHC 32.7 RDW 17.2 H Plt Count 416 Seg Neutrophils % 63.8 Sodium 137.9 Potassium 4.1 Chloride 98 Carbon Dioxide 31 H Anion Gap 9 BUN 10 Creatinine 0.78 Est GFR ( Amer) > 60 Glucose 112 H Calcium 8.5 TSH 1.35 Free T4 0.71 L Free T3 pg/mL 1.89 L 01/12/19 11:46 NT-Pro-B Natriuret Pep 787 H Impressions: Chest X-Ray 01/12/19 10:24 IMPRESSION: Trace bilateral pleural effusions Bibasilar airspace disease likely atelectasis Gaseous distention of bowel under the hemidiaphragms Assessment & Plan - Diagnosis (1) Acute congestive heart failure Qualifiers: Heart failure type: unspecified Qualified Code(s): I50.9 - Heart failure, unspecified Is this a current diagnosis for this admission?: Yes Plan: Continues to IV Lasix (2) Chronic atrial fibrillation Is this a current diagnosis for this admission?: Yes Plan: Continue on Xarelto (3) Hypertension Qualifiers: Hypertension type: essential hypertension Qualified Code(s): I10 - Essential (primary) hypertension Is this a current diagnosis for this admission?: Yes Plan: Currently all stable (4) Hypothyroidism Qualifiers: Hypothyroidism type: acquired Qualified Code(s): E03.9 - Hypothyroidism, unspecified Is this a current diagnosis for this admission?: Yes Plan: TSH and free T4 (5) Vitamin B 12 deficiency Is this a current diagnosis for this admission?: Yes - Time Time Spent with patient: 15-24 minutes Level of Care: IMCU Medications reviewed and adjusted accordingly: Yes Anticipated discharge: Home with Homehealth Within: Other - Plan Summary Plan Summary: Continues to current medications
[2019-01-14] MEDS: NYSTATIN TOPICAL POWDER 15 GM TP SCH ×2 (14:25→17:44)
[2019-01-14] MEDS: ATORVASTATIN CALCIUM 20 MG TABLET PO SCH (17:44)
--- NOTE | 2019-01-14 19:22 | Progress Note ---
Provider Note Provider Note: CARDIOLOGY PROGRESS NOTE by Dr. Nette Glover on 01/14/2019. SUBJECTIVE: The patient states her shortness of breath is much improved her leg edema is also improved. She has a history of sleep apnea but does not use BiPAP. The echo was suboptimal it shows normal left ventricular ejection fraction. Although the right with a systolic pressure is measured at 46 mmHg I think this is underestimation of the right heart pressures I suspect that the patient has significant pulmonary hypertension causing right heart failure. The patient remains in atrial fibrillation with controlled ventricular response. There is no bleeding on Xarelto. There is no TIA CVA symptoms. There is no ventricular arrhythmia seen on the monitor. PHYSICAL EXAMINATION: The patient is moderately obese but well-groomed in no acute distress Selected Entries 01/14/19 12:29 Temperature 97.4 F Temperature Oral Source Pulse Rate 81 Respiratory 16 Rate Blood Pressure 114/50 L Blood Pressure 71 Mean BP Location Left Arm BP Position Supine O2 Sat by Pulse 100 Oximetry Oxygen Flow 2.00 Rate Oxygen Delivery Nasal Cannula Method HEAD: Is atraumatic normocephalic. EYES: Pupils equal round regular reactive to light accommodation. Extraocular movements are normal. There is no conjunctiva l pallor. There is no scleral icterus. EARS: Tympanic membranes are intact. External auditory canals are clear. NOSE: There is no deviated nasal septum. There is no inflammation of these mucous membranes. MOUTH: Mucous memories of mouth are moist. Tongue is moist. There is no ulcers. THROAT: There is no redness of the oropharynx. There is no exudates SKIN: There is no skin rashes skin lesions. There is no petechia or ecchymosis. There is chronic venous stasis dermatitis of the lower extremities. LUNGS: Is clear to auscultation percussion. On palpation there is no chest wall tenderness. HEART: S1-S2 is heard. S1 is variable intensity. There is no S3 gallop. There is no S4 gallop. There is systolic murmur left sternal border and the apex there is no rub. ABDOMEN: Soft. Slightly obese. There is no hepatosplenomegaly. Nontender. Bowel sounds are normally heard. EXTREMITIES: Femorals are diminished. There is no femoral bruits. There is mild edema with chronic veno us stasis dermatitis. There is no DVT or cellulitis. Leg pulses are difficult to palpate. There is no cyanosis or clubbing. QUALITY AUDIT REPRESENTATIVE: The patient is conscious awake alert oriented times with no focal deficit. PSYCHIATRIC: The patient judgment insight are intact her affect is normal. Labs- All tests 24 hr 01/13/19 01/14/19 01/14/19 14:28 04:49 04:49 WBC 6.4 RBC 3.27 L Hgb 9.6 L Hct 29.3 L MCV 90 MCH 29.4 MCHC 32.7 RDW 17.2 H Plt Count 416 Lymph % (Auto) 20.6 [place] % (Auto) 10.4 Eos % (Auto) 4.1 Baso % (Auto) 1.1 Absolute Neuts (auto) 4.1 Absolute Lymphs (auto) 1.3 Absolute Monos (auto) 0.7 Absolute Eos (auto) 0.3 Absolute Basos (auto) 0.1 Seg Neutrophils % 63.8 Sodium 137.9 Potassium 4.1 Chloride 98 Carbon Dioxide 31 H Anion Gap 9 BUN 10 Creatinine 0.78 Est GFR ( Amer) > 60 Est GFR (MDRD) Non-Af > 60 Glucose 112 H Calcium 8.5 TSH 1.35 Free T4 0.71 L Free T3 pg/mL 1.89 L Chest X-Ray 01/12/19 10:24 IMPRESSION: Trace bilateral pleural effusions Bibasilar airspace disease likely atelectasis Gaseous distention of bowel under the hemidiaphragms The patient's lower extremity venous Dopplers are negative for DVT. IMPRESSION/RECOMMENDATION: 1. Acute on chronic right ventricular systolic heart failure. Suspect significant pulmonary hypertension. Will reassess the tricuspid valve. Continue current treatment. Would add hydralazine 2. Suspect significant pulmonary hypertension. Will repeat patient's echo for tricuspid valve interrogation. 3. Chronic atrial fibrillation: With controlled ventricular response. 4. History of sleep apnea. Patient noncompliant with CPAP. This probably is contributing to the patient's pulmonary hypertension right heart failure. 5. Hypertension: Blood pressure well controlled 6. Hypothyroidism: Continue thyroid replacement. 7. Vitamin B12 deficiency: Continue replacement. Medications reviewed. Medications added medical decision making is of high complexity. Medical regimen and management plan discussed with attending physician. Will reassess the tricuspid valve with repeat interrogation to assess to see if the right heart pressures are really conducive with significant pulmonary hypertension. 40 minutes spent on this patient with more than 50% of time spent in direct patient care. Will follow.
[2019-01-14] MEDS: DULOXETINE HCL 20 MG CAPSULE.DR PO SCH (22:06)
[2019-01-14] MEDS: RIVAROXABAN 15 MG TABLET PO SCH (22:06)
[2019-01-15] MEDS: LEVOTHYROXINE SODIUM 0.088 MG TABLET PO SCH (06:10)
[2019-01-15 06:49] LABS: ANION GAP 7 (5-19); BLOOD UREA NITROGEN 12 mg/dL (7-20); CALCIUM 8.5 mg/dL (8.4-10.2); CARBON DIOXIDE 33 mmol/L (22-30); CHLORIDE 98 mmol/L (98-107); GLUCOSE 115 mg/dL (75-110); POTASSIUM 3.8 mmol/L (3.6-5.0)
--- NOTE | 2019-01-15 10:23 | PDOC PROGRESS REPORT ---
Subjective Progress Note for:: 01/15/19 Subjective:: Patient is currently doing much better Patient echocardiogram with a normal EF Dr. PERERA thought patients have underlying pulmonary hypertension's patient's ultrasound is negative for DVT Reason For Visit: ACUTE CHRONIC CHF,HTN,HYPOTHYROIDISM,VITAMIN B12 Physical Exam Vital Signs: Temp Pulse Resp BP Pulse Ox 97.4 F 81 16 125/50 L 98 01/15/19 08:09 01/15/19 08:09 01/15/19 08:09 01/15/19 08:09 01/15/19 08:09 Intake & Output 01/14/19 01/15/19 01/16/19 06:59 06:59 06:59 Intake Total 1200 1190 Output Total 2300 1000 Balance -1100 190 Weight 91.3 kg 91 kg General appearance: PRESENT: no acute distress, well-developed, well-nourished Head exam: PRESENT: atraumatic, normocephalic Eye exam: PRESENT: conjunctiva pink, EOMI, PERRLA. ABSENT: scleral icterus Ear exam: PRESENT: normal external ear exam Mouth exam: PRESENT: moist, tongue midline Neck exam: PRESENT: full ROM. ABSENT: carotid bruit, JVD, lymphadenopathy, thyromegaly Respiratory exam: PRESENT: clear to auscultation mendoza Cardiovascular exam: PRESENT: RRR. ABSENT: diastolic murmur, rubs, systolic murmur Pulses: PRESENT: normal dorsalis pedis pul, +2 pedal pulses bilateral Vascular exam: PRESENT: normal capillary refill GI/Abdominal exam: PRESENT: normal bowel sounds, soft. ABSENT: distended, guarding, mass, organolmegaly, rebound, tenderness Rectal exam: PRESENT: deferred Extremities exam: ABSENT: pedal edema Neurological exam: PRESENT: alert, awake, oriented to person, oriented to place, oriented to time, oriented to situation, CN II-XII grossly intact. ABSENT: motor sensory deficit Psychiatric exam: PRESENT: appropriate affect, normal mood. ABSENT: homicidal ideation, suicidal ideation Skin exam: PRESENT: dry, intact, warm. ABSENT: cyanosis, rash Results Laboratory Results: 01/14/19 04:49 01/15/19 05:57 01/15/19 05:57 Sodium 138.1 Potassium 3.8 Chloride 98 Carbon Dioxide 33 H Anion Gap 7 BUN 12 Creatinine 0.77 Est GFR ( Amer) > 60 Glucose 115 H Calcium 8.5 01/12/19 11:46 NT-Pro-B Natriuret Pep 787 H Impressions: Chest X-Ray 01/12/19 10:24 IMPRESSION: Trace bilateral pleural effusions Bibasilar airspace disease likely atelectasis Gaseous distention of bowel under the hemidiaphragms Assessment & Plan - Diagnosis (1) Acute congestive heart failure Qualifiers: Heart failure type: unspecified Qualified Code(s): I50.9 - Heart failure, unspecified Is this a current diagnosis for this admission?: Yes Plan: Consider switch to IV to the p.o. Lasix (2) Chronic atrial fibrillation Is this a current diagnosis for this admission?: Yes Plan: Continue on Xarelto (3) Hypertension Qualifiers: Hypertension type: essential hypertension Qualified Code(s): I10 - Essential (primary) hypertension Is this a current diagnosis for this admission?: Yes Plan: Currently all stable (4) Hypothyroidism Qualifiers: Hypothyroidism type: acquired Qualified Code(s): E03.9 - Hypothyroidism, unspecified Is this a current diagnosis for this admission?: Yes Plan: TSH and free T4 (5) Vitamin B 12 deficiency Is this a current diagnosis for this admission?: Yes - Time Time Spent with patient: 15-24 minutes Level of Care: IMCU Medications reviewed and adjusted accordingly: Yes Anticipated discharge: Home Within: within 48 hours - Plan Summary Plan Summary: To the IV to the p.o. Lasix
[2019-01-15] MEDS: AMLODIPINE BESYLATE 5 MG TABLET PO SCH (10:47)
[2019-01-15] MEDS: PANTOPRAZOLE SODIUM 40 MG TABLET.DR PO SCH (10:47)
[2019-01-15] MEDS: CALCIUM CARBONATE 250 MG/VITAMIN D3 125 UNIT TABLET PO SCH (10:47)
[2019-01-15] MEDS: POTASSIUM CHLORIDE 10 MEQ TABLET.ER PO SCH (10:47)
[2019-01-15] MEDS: FLUTICASONE NASAL SPRAY 50 MCG/SPRY 120 SPRAY/16 GM NASL SCH (10:48)
[2019-01-15] MEDS: NYSTATIN TOPICAL POWDER 15 GM TP SCH ×2 (10:49→17:45)
[2019-01-15] MEDS: FUROSEMIDE INJ/PF 40 MG/4 ML SDV IV SCH (15:43)
[2019-01-15] MEDS: FUROSEMIDE 40 MG TABLET PO SCH (17:44)
[2019-01-15] MEDS: ATORVASTATIN CALCIUM 20 MG TABLET PO SCH (17:45)
[2019-01-15] MEDS: RIVAROXABAN 15 MG TABLET PO SCH (21:19)
[2019-01-15] MEDS: DULOXETINE HCL 20 MG CAPSULE.DR PO SCH (21:20)
--- NOTE | 2019-01-15 21:55 | Progress Note ---
Provider Note Provider Note: CARDIOLOGY PROGRESS NOTE by Dr. Nette Glover on 01/15/2019. SUBJECTIVE: The patient states she is not short of breath anymore. There is no PND orthopnea. The patient is atrial fibrillation with controlled ventricular response. There is no bleeding on Xarelto. There is no TIA CVA symptoms. Her leg edema is much improved. There is no ventricular arrhythmia seen on the monitor. PHYSICAL EXAMINATION: THE patient is moderately obese. In no acute distress Selected Entries 01/15/19 12:05 Temperature 97.2 F Temperature Oral Source Pulse Rate 81 Respiratory 14 Rate Blood Pressure 110/55 L Blood Pressure 73 Mean BP Location Left Arm BP Position Supine O2 Sat by Pulse 99 Oximetry Oxygen Delivery Room Air Method HEAD: Is atraumatic normocephalic. EYES: Pupils equal round regular reactive to light accommodation. Extraocular movements are normal. There is no conjunctival pallor. There is no scleral icterus. EARS: Tympanic membranes are intact. External auditory canals are clear. NOSE: There is no deviated nasal septum. There is no inflammation of these mucous membranes. MOUTH: Mucous memories of mouth are moist. Tongue is moist. There is no ulcers. THROAT: There is no redness of the oropharynx. There is no exudates SKIN: There is no skin rashes skin lesions. There is no petechia or ecchymosis. There is chronic venous stasis dermatitis of the lower extremities. LUNGS: Is clear to auscultation percussion. On palpation there is no chest wall tenderness. HEART: S1-S2 is heard. S1 is variable intensity. There is no S3 gallop. There is no S4 gallop. There is systolic murmur left sternal border and the apex there is no rub. ABDOMEN: Soft. Slightly obese. There is no hepatosplenomegaly. Nontender. Bowel sounds are normally heard. EXTREMITIES: Femorals are diminished. There is no femoral bruits. There is trace edema with chronic venous stasis dermatitis. There is no DVT or cellulitis. Leg pulses are difficult to palpate. There is no cyanosis or clubbing. AUTOMATION AND CONTROLS INSTRUCTOR: The patient is conscious awake alert oriented times with no focal deficit. PSYCHIATRIC: The patient judgment insight are intact her affect is normal. Labs- All tests 24 hr 01/15/19 05:57 Sodium 138.1 Potassium 3.8 Chloride 98 Carbon Dioxide 33 H Anion Gap 7 BUN 12 Creatinine 0.77 Est GFR ( Amer) > 60 Est GFR (MDRD) Non-Af > 60 Glucose 115 H Calcium 8.5 Chest X-Ray 01/12/19 10:24 IMPRESSION: Trace bilateral pleural effusions Bibasilar airspace disease likely atelectasis Gaseous distention of bowel under the hemidiaphragms IMPRESSION/RECOMMENDATION: 1. Acute on chronic right ventricular systolic heart failure. Suspect significant pulmonary hypertension. Will reassess the tricuspid valve. Continue current treatment. Would add hydralazine 2. Suspect significant pulmonary hypertension. Will repeat patient's echo for tricuspid valve interrogation. 3. Chronic atrial fibrillation: With controlled ventricular response. 4. History of sleep apnea. Patient noncompliant with CPAP. This probably is contributing to the patient's pulmonary hypertension right heart failure. 5. Hypertension: Blood pressure well controlled 6. Hypothyroidism: Continue thyroid replacement. 7. Vitamin B12 deficiency: Continue replacement. Medications reviewed. Management plan discussed with attending provider on the case. Medical decision making is of moderate complexity. 40 minutes spent on this patient more than 50% time spent direct patient care. Will follow.
[2019-01-16 05:15] LABS: ABSOLUTE BASOPHILS # (AUTO) 0.1 10^3/uL (0.0-0.2); ABSOLUTE EOSINOPHILS # (AUTO) 0.2 10^3/uL (0.0-0.6); ABSOLUTE LYMPHOCYTES (AUTO) 1.2 10^3/uL (0.5-4.7); ABSOLUTE MONOCYTES (AUTO) 0.6 10^3/uL (0.1-1.4); ABSOLUTE NEUT (AUTO) 5.2 10^3/uL (1.7-8.2); BASOPHILS % (AUTO) 1.1 % (0-2); EOSINOPHILS % (AUTO) 2.4 % (0-6); HEMATOCRIT 30.3 % (36.0-47.0); LYMPHOCYTES % (AUTO) 17.1 % (13-45); MEAN CORPUSCULAR HEMOGLOBIN 29.4 pg (27.0-33.4); MEAN CORPUSCULAR HGB CONC 32.9 g/dL (32.0-36.0); MEAN CORPUSCULAR VOLUME 89 fl (80-97); MONOCYTES % (AUTO) 8.6 % (3-13); PLATELET COUNT 395 10^3/uL (150-450); RED CELL DISTRIBUTION WIDTH 17.1 % (11.5-14.0); SEGMENTED NEUTROPHILS % (AUTO) 70.8 % (42-78); TOTAL CELLS COUNTED % (AUTO) 100 %; WHITE BLOOD COUNT 7.3 10^3/uL (4.0-10.5)
[2019-01-16] MEDS: LEVOTHYROXINE SODIUM 0.088 MG TABLET PO SCH (05:15)
[2019-01-16 05:34] LABS: ANION GAP 9 (5-19); BLOOD UREA NITROGEN 12 mg/dL (7-20); CALCIUM 8.8 mg/dL (8.4-10.2); CARBON DIOXIDE 29 mmol/L (22-30); CHLORIDE 98 mmol/L (98-107); GLUCOSE 116 mg/dL (75-110)
[2019-01-16] MEDS: PANTOPRAZOLE SODIUM 40 MG TABLET.DR PO SCH (09:13)
[2019-01-16] MEDS: FUROSEMIDE 40 MG TABLET PO SCH ×2 (09:13→17:09)
[2019-01-16] MEDS: CALCIUM CARBONATE 250 MG/VITAMIN D3 125 UNIT TABLET PO SCH (09:13)
[2019-01-16] MEDS: AMLODIPINE BESYLATE 5 MG TABLET PO SCH (09:13)
[2019-01-16] MEDS: POTASSIUM CHLORIDE 10 MEQ TABLET.ER PO SCH (09:13)
[2019-01-16] MEDS: NYSTATIN TOPICAL POWDER 15 GM TP SCH ×2 (09:14→17:09)
[2019-01-16] MEDS: FLUTICASONE NASAL SPRAY 50 MCG/SPRY 120 SPRAY/16 GM NASL SCH (09:16)
--- NOTE | 2019-01-16 10:39 | PDOC PROGRESS REPORT ---
Subjective Progress Note for:: 01/16/19 Subjective:: Patient is currently doing much better Patient echocardiogram with a normal EF Dr. PERERA thought patients have underlying pulmonary hypertension's patient's ultrasound is negative for DVT Reason For Visit: ACUTE CHRONIC CHF,HTN,HYPOTHYROIDISM,VITAMIN B12 Physical Exam Vital Signs: Temp Pulse Resp BP Pulse Ox 97.7 F 78 16 120/89 H 96 01/16/19 08:05 01/16/19 08:05 01/16/19 08:05 01/16/19 08:05 01/16/19 08:05 Intake & Output 01/15/19 01/16/19 01/17/19 06:59 06:59 06:59 Intake Total 1190 1210 Output Total 1000 1300 Balance 190 -90 Weight 91 kg 89.3 kg General appearance: PRESENT: no acute distress, well-developed, well-nourished Head exam: PRESENT: atraumatic, normocephalic Eye exam: PRESENT: conjunctiva pink, EOMI, PERRLA. ABSENT: scleral icterus Ear exam: PRESENT: normal external ear exam Mouth exam: PRESENT: moist, tongue midline Neck exam: PRESENT: full ROM. ABSENT: carotid bruit, JVD, lymphadenopathy, thyromegaly Respiratory exam: PRESENT: clear to auscultation mendoza Cardiovascular exam: PRESENT: RRR. ABSENT: diastolic murmur, rubs, systolic murmur Vascular exam: PRESENT: normal capillary refill GI/Abdominal exam: PRESENT: normal bowel sounds, soft. ABSENT: distended, guarding, mass, organolmegaly, rebound, tenderness Rectal exam: PRESENT: deferred Neurological exam: PRESENT: alert, awake, oriented to person, oriented to place, oriented to time, oriented to situation, CN II-XII grossly intact. ABSENT: motor sensory deficit Psychiatric exam: PRESENT: appropriate affect, normal mood. ABSENT: homicidal ideation, suicidal ideation Skin exam: PRESENT: dry, intact, warm. ABSENT: cyanosis, rash Results Laboratory Results: 01/16/19 04:51 01/16/19 04:51 01/16/19 01/16/19 04:51 04:51 WBC 7.3 RBC 3.40 L Hgb 10.0 L Hct 30.3 L MCV 89 MCH 29.4 MCHC 32.9 RDW 17.1 H Plt Count 395 Seg Neutrophils % 70.8 Sodium 135.9 L Potassium 4.0 Chloride 98 Carbon Dioxide 29 Anion Gap 9 BUN 12 Creatinine 0.78 Est GFR ( Amer) > 60 Glucose 116 H Calcium 8.8 01/12/19 11:46 NT-Pro-B Natriuret Pep 787 H Impressions: Chest X-Ray 01/12/19 10:24 IMPRESSION: Trace bilateral pleural effusions Bibasilar airspace disease likely atelectasis Gaseous distention of bowel under the hemidiaphragms Assessment & Plan - Diagnosis (1) Acute congestive heart failure Qualifiers: Heart failure type: unspecified Qualified Code(s): I50.9 - Heart failure, unspecified Is this a current diagnosis for this admission?: Yes Plan: Continues to p.o. Lasix (2) Chronic atrial fibrillation Is this a current diagnosis for this admission?: Yes Plan: Continue on Xarelto (3) Hypertension Qualifiers: Hypertension type: essential hypertension Qualified Code(s): I10 - Essential (primary) hypertension Is this a current diagnosis for this admission?: Yes Plan: Currently all stable (4) Hypothyroidism Qualifiers: Hypothyroidism type: acquired Qualified Code(s): E03.9 - Hypothyroidism, unspecified Is this a current diagnosis for this admission?: Yes Plan: TSH and free T4 (5) Vitamin B 12 deficiency Is this a current diagnosis for this admission?: Yes - Time Time Spent with patient: 15-24 minutes Level of Care: IMCU Medications reviewed and adjusted accordingly: Yes Anticipated discharge: Home with Homehealth Within: Other - Plan Summary Plan Summary: If the patient remains stable next 24 will discharge home
[2019-01-16] MEDS: ATORVASTATIN CALCIUM 20 MG TABLET PO SCH (17:09)
[2019-01-16] MEDS: RIVAROXABAN 15 MG TABLET PO SCH (21:30)
[2019-01-16] MEDS: DULOXETINE HCL 20 MG CAPSULE.DR PO SCH (21:30)
[2019-01-17] MEDS: LEVOTHYROXINE SODIUM 0.088 MG TABLET PO SCH (05:49)
[2019-01-17] MEDS: FUROSEMIDE 40 MG TABLET PO SCH ×2 (09:21→17:35)
[2019-01-17] MEDS: AMLODIPINE BESYLATE 5 MG TABLET PO SCH (09:21)
[2019-01-17] MEDS: FLUTICASONE NASAL SPRAY 50 MCG/SPRY 120 SPRAY/16 GM NASL SCH (09:21)
[2019-01-17] MEDS: POTASSIUM CHLORIDE 10 MEQ TABLET.ER PO SCH (09:21)
[2019-01-17] MEDS: CALCIUM CARBONATE 250 MG/VITAMIN D3 125 UNIT TABLET PO SCH (09:21)
[2019-01-17] MEDS: PANTOPRAZOLE SODIUM 40 MG TABLET.DR PO SCH (09:21)
[2019-01-17] MEDS: NYSTATIN TOPICAL POWDER 15 GM TP SCH ×2 (10:12→17:27)
[2019-01-17] MEDS: ATORVASTATIN CALCIUM 20 MG TABLET PO SCH (17:34)
--- NOTE | 2019-01-17 18:48 | PDOC PROGRESS REPORT ---
Subjective Progress Note for:: 01/17/19 Subjective:: Patient reported significant improvement in her breathing and fluid over load status. No chest pain. No fever or chills. No nausea, vomiting,or abdominal pain. Reason For Visit: ACUTE CHRONIC CHF,HTN,HYPOTHYROIDISM,VITAMIN B12 Physical Exam Vital Signs: Temp Pulse Resp BP Pulse Ox 97.8 F 70 18 112/62 100 01/17/19 15:58 01/17/19 15:58 01/17/19 15:58 01/17/19 15:58 01/17/19 15:58 Intake & Output 01/16/19 01/17/19 01/18/19 06:59 06:59 06:59 Intake Total 1210 1690 Output Total 1300 500 Balance -90 1190 Weight 89.3 kg 90 kg General appearance: PRESENT: obese Head exam: PRESENT: atraumatic, normocephalic Eye exam: PRESENT: conjunctiva pink, EOMI, PERRLA. ABSENT: scleral icterus Ear exam: PRESENT: normal external ear exam Mouth exam: PRESENT: moist Respiratory exam: PRESENT: clear to auscultation mendoza Cardiovascular exam: PRESENT: irregular rhythm, +S1, +S2. ABSENT: diastolic murmur, systolic murmur Vascular exam: ABSENT: pallor GI/Abdominal exam: PRESENT: hernia - ventral, long standing., normal bowel sounds, soft. ABSENT: distended, guarding, mass, organolmegaly, rebound, tenderness Extremities exam: PRESENT: pedal edema - significant improvement Neurological exam: PRESENT: alert, awake, oriented to person, oriented to place, oriented to time, oriented to situation, CN II-XII grossly intact. ABSENT: motor sensory deficit Psychiatric exam: PRESENT: appropriate affect, normal mood. ABSENT: homicidal ideation, suicidal ideation Skin exam: PRESENT: dry, warm Results Laboratory Results: 01/16/19 04:51 01/16/19 04:51 01/12/19 11:46 NT-Pro-B Natriuret Pep 787 H Impressions: Chest X-Ray 01/12/19 10:24 IMPRESSION: Trace bilateral pleural effusions Bibasilar airspace disease likely atelectasis Gaseous distention of bowel under the hemidiaphragms Assessment & Plan - Diagnosis (1) Acute on chronic diastolic (congestive) heart failure Is this a current diagnosis for this admission?: Yes Plan: Continue current medication management. (2) Chronic atrial fibrillation Is this a current diagnosis for this admission?: Yes Plan: Continue current medication management. I will discuss further with library sales consultant possible change of Norvasc to Cardizem for triple benefits of rate control,blood pressure control, and diastolic heart failure. (3) Hypertension Qualifiers: Hypertension type: essential hypertension Qualified Code(s): I10 - Essential (primary) hypertension Is this a current diagnosis for this admission?: Yes Plan: Continue current medication management. (4) Hypothyroidism Qualifiers: Hypothyroidism type: acquired Qualified Code(s): E03.9 - Hypothyroidism, unspecified Is this a current diagnosis for this admission?: Yes Plan: Continue current medication management. (5) Osteoarthritis involving multiple 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 of body Is this a current diagnosis for this admission?: Yes Plan: Continue current medication management. (6) Vitamin B 12 deficiency Is this a current diagnosis for this admission?: Yes Plan: Continue current medication management. - Time Time Spent with patient: 35 or more minutes Level of Care: IMCU Medications reviewed and adjusted accordingly: Yes Anticipated discharge: Home with Homehealth Within: Other - Inpatient Certification Based on my medical assessment, after consideration of the patient's com orbidities, presenting symptoms, or acuity I expect that the services needed warrant INPATIENT care.: Yes I certify that my determination is in accordance with my understanding of Medicare's requirements for reasonable and necessary INPATIENT services [42 CFR 412.3e].: Yes Medical Necessity: Significant Comorbidiites Make Outpatient Treatment Too Risky, Need Close Monitoring Due to Risk of Patient Decompensation, Need For Continuous Telemetry Monitoring, Risk of Complication if Not Cared For in Hospital, Risk of Diagnosis Which Will Require Inpatient Eval/Care/Monitoring Post Hospital Care: D/C [employer] Forms Builder Documentation - Plan Summary Plan Summary: Continue current medication management.
--- NOTE | 2019-01-17 19:44 | PDOC H&P ---
History of Present Illness Admission Date/PCP: 01/12/19 10:06 JUSTICE KIMBERLY Patient complains of: Difficulty with breathing, increase swelling History of Present Illness: WILLIAM FISH is a 88 year old female patient known to my practice who presented to the office with several days history of increasing difficulty with breathing and worsening bilateral leg swelling. Patient reported limitation in her activities due to exertional dyspnea. She reported compliance with her prescribed medication, dietary salt restrictions as well as fluid restriction. She described nocturnal coughing spells, orthopnea and PND. She denied any significant chest pain. No nausea, vomiting, abdominal pain, constipation, or diarrhea. No fever or chills. Cough is minimally productive of clear white sputum. In view of her morbidities and significant weight gain and clinical findings of near anasarca status, she was advised hospitalization for further evaluation and management. Her morbidities are as listed below. Past Medical History Cardiac Medical History: Reports: Atrial Fibrillation, Hyperlipidema, Hypertension - medicated Denies: Myocardial Infarction Pulmonary Medical History: Denies: Asthma Neurological Medical History: Denies: Seizures Endocrine Medical History: Reports: Hypothyroidism GI Medical History: Denies: Hepatitis, Hiatal Hernia Musculoskeltal Medical History: Reports: Arthritis Psychiatric Medical History: Denies: Depression Hematology: Denies: Anemia, Sickle Cell Disease Past Surgical History Past Surgical History: Reports: Appendectomy, Cholecystectomy, Orthopedic Surgery - bilateral knee replacement, mendoza. shoulder replacement Denies: Amputation, Hysterectomy, Mastectomy, Pacemaker Social History Smoking Status: Never Smoker Electronic Cigarette use?: No Frequency of Alcohol Use: None Hx Recreational Drug Use: No Drugs: None Hx Prescription Drug Abuse: No Family History Family History: Reviewed & Not Pertinent Parental Family History Reviewed: Yes Children Family History Reviewed: Yes Sibling(s) Family History Reviewed.: Yes Medication/Allergy Home Medications: Amlodipine Besylate [Norvasc 5 mg Tablet] 5 mg PO DAILY 01/12/19 Benzonatate [Tessalon Perle 100 mg Capsule] 100 mg PO TIDP PRN 01/12/19 Bifidobacterium Infantis [Align 4 mg Capsule] 4 mg PO DAILY 01/12/19 Calcium Carbonate/Vitamin D3 [Calcium 600-Vit D3 400 Caplet] 1 tab PO DAILY 01/12/19 Cyanocobalamin (Vitamin B-12) [Vitamin B-12 Inj 1000 Mcg/1 ml Vial] 1,000 mcg IM .[id number] 01/12/19 Duloxetine HCl [Cymbalta 20 mg Capsule.dr] 20 mg PO QHS 01/12/19 Fluticasone Propionate [Flonase Nasal Maspeth 50 Mcg/Maspeth 16 gm] 2 spray NASL DAILY 01/12/19 Furosemide [Lasix 40 mg Tablet] 40 mg PO DAILY 01/12/19 Krill/Om-3/Dha/Epa/Phospho/Ast [Megared Waka-3 Krill Oil Sfgl] 1 cap PO DAILY 01/12/19 Levothyroxine Sodium 88 mcg PO Q6AM 01/12/19 Lidocaine [Lidoderm 5% (700 mg) Transdermal Patch] 1 patch TD DAILYP PRN 01/12/19 Nystatin [Mycostatin Cream 15 gm] 1 applic TOP BIDP PRN 01/12/19 Potassium Chloride [Klor-Con M20] 20 meq PO DAILY 01/12/19 Rivaroxaban [Xarelto 15 mg Tablet] 15 mg PO DAILY 01/12/19 Rosuvastatin Calcium [Crestor 10 mg Tablet] 10 mg PO QPM 01/12/19 Tramadol HCl/Acetaminophen [Ultracet 37.5 mg/325 mg Tablet] 1 tab PO Q8HP PRN 01/12/19 Allergies/Adverse Reactions: acetaminophen [From Percocet] Allergy (Mild, Unverified 01/12/19 10:56) Nausea levothyroxine sodium Allergy (Mild, Unverified 01/12/19 10:56) oxycodone [From Percocet] Allergy (Mild, Unverified 01/12/19 10:56) Nausea thimerosal [Thimerosal] Allergy (Unknown, Verified 03/21/11 09:19) adhesive tape [Adhesive Tape] Allergy (Verified 03/17/11 11:07) walker skin Review of Systems Constitutional: ABSENT: chills, fever(s), headache(s), weight gain, weight loss Eyes: PRESENT: visual disturbances Ears: ABSENT: hearing changes Nose, Mouth, and Throat: ABSENT: headache(s), mouth pain, sore throat, vertigo Cardiovascular: PRESENT: dyspnea on exertion, edema, orthropnea. ABSENT: chest pain, palpitations Respiratory: PRESENT: cough, dyspnea, sputum Gastrointestinal: ABSENT: abdominal pain, constipation, diarrhea, hematemesis, hematochezia, nausea, vomiting Genitourinary: ABSENT: dysuria, hematuria Musculoskeletal: PRESENT: deformity - due to multiple joints involvemen with arthritis, joint swelling - bilateral leg swelling to thigh level Neurological: ABSENT: abnormal gait, abnormal speech, confusion, dizziness, focal weakness, syncope Endocrine: ABSENT: cold intolerance, heat intolerance, polydipsia, polyuria Hematologic/Lymphatic: ABSENT: easy bleeding, easy bruising, lymphadenopathy Allergic/Immunologic: ABSENT: seasonal rhinorrhea Physical Exam Vital Signs: Temp Pulse Resp BP Pulse Ox 97.6 F 66 18 152/62 H 99 01/12/19 12:00 01/12/19 14:00 01/12/19 12:00 01/12/19 12:00 01/12/19 12:00 Intake & Output 01/11/19 01/12/19 01/13/19 06:59 06:59 06:59 Intake Total 150 Output Total 240 Balance -90 Weight 97.9 kg General appearance: PRESENT: mild distress - due to excess fluid, obese Head exam: PRESENT: atraumatic, normocephalic Eye exam: PRESENT: conjunctiva pink, EOMI, PERRLA. ABSENT: scleral icterus Ear exam: PRESENT: normal external ear exam Mouth exam: PRESENT: moist Neck exam: PRESENT: full ROM. ABSENT: carotid bruit, JVD, lymphadenopathy, thyromegaly Respiratory exam: PRESENT: clear to auscultation mendoza, decreased breath sounds - at lung bases Cardiovascular exam: PRESENT: irregular rhythm, +S1, +S2, systolic murmur. ABSENT: diastolic murmur Murmur grade: 3 Vascular exam: ABSENT: pallor GI/Abdominal exam: PRESENT: normal bowel sounds, soft. ABSENT: distended, guarding, mass, organolmegaly, rebound, tenderness Rectal exam: PRESENT: deferred Extremities exam: PRESENT: pedal edema - bilateral to thigh level and sacral region Musculoskeletal exam: ABSENT: ambulatory - wheelchair bound in the office Neurological exam: PRESENT: alert, awake, oriented to person, oriented to place, oriented to time, oriented to situation, CN II-XII grossly intact. ABSENT: motor sensory deficit Psychiatric exam: PRESENT: appropriate affect, normal mood. ABSENT: homicidal ideation, suicidal ideation Skin exam: PRESENT: dry, warm Results Laboratory Results: 01/12/19 11:46 01/12/19 11:46 01/12/19 01/12/1901/12/19 11:30 11:46 11:46 WBC 7.5 RBC 3.33 L Hgb 9.8 L Hct 30.3 L MCV 91 MCH 29.5 MCHC 32.4 RDW 17.8 H Plt Count 426 Seg Neutrophils % 70.1 Carbonic Acid 1.23 HCO3/H2CO3 Ratio 20:1 ABG pH 7.41 ABG pCO2 40.9 ABG pO2 87.4 ABG HCO3 25.2 H ABG O2 Saturation 96.7 ABG Base Excess 0.5 FiO2 28% Sodium 137.6 Potassium 4.6 Chloride 102 Carbon Dioxide 24 Anion Gap 12 BUN 8 Creatinine 0.59 Est GFR ( Amer) > 60 Glucose 85 Calcium 9.2 Total Bilirubin 0.4 AST 23 Alkaline Phosphatase 157 H Total Protein 6.9 Albumin 3.6 01/12/19 11:46 NT-Pro-B Natriuret Pep 787 H Impressions: Chest X-Ray 01/12/19 10:24 IMPRESSION: Trace bilateral pleural effusions Bibasilar airspace disease likely atelectasis Gaseous distention of bowel under the hemidiaphragms Assessment & Plan - Diagnosis (1) Acute congestive heart failure Qualifiers: Heart failure type: unspecified Qualified Code(s): I50.9 - Heart failure, unspecified Is this a current diagnosis for this admission?: Yes Plan: See admitting attending physician orders for details about care plan. (2) Chronic atrial fibrillation Is this a current diagnosis for this admission?: Yes Plan: See admitting attending physician orders for details about care plan. (3) Hypertension Qualifiers: Hypertension type: essential hypertension Qualified Code(s): I10 - Essential (primary) hypertension Is this a current diagnosis for this admission?: Yes Plan: See admitting attending physician orders for details about care plan. (4) Hyperlipidemia Qualifiers: Hyperlipidemia type: unspecified Qualified Code(s): E78.5 - Hyperlipidemia, unspecified Is this a current diagnosis for this admission?: Yes Plan: See admitting attending physician orders for details about care plan. (5) Hypothyroidism Qualifiers: Hypothyroidism type: acquired Qualified Code(s): E03.9 - Hypothyroidism, unspecified Is this a current diagnosis for this admission?: Yes Plan: See admitting attending physician orders for details about care plan. (6) Osteoarthritis involving multiple 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 of body Is this a current diagnosis for this admission?: Yes Plan: See admitting attending physician orders for details about care plan. (7) Vitamin B 12 deficiency Is this a current diagnosis for this admission?: Yes Plan: See admitting attending physician orders for details about care plan. - Time Time Spent: 50 to 70 Minutes Medications reviewed and adjusted accordingly: Yes Anticipated discharge: Home with Homehealth Within: Other - Inpatient Certification Based on my medical assessment, after consideration of the patient's c omorbidities, presenting symptoms, or acuity I expect that the services needed warrant INPATIENT care.: Yes I certify that my determination is in accordance with my understanding of Medicare's requirements for reasonable and necessary INPATIENT services [42 CFR 412.3e].: Yes Medical Necessity: Significant Comorbidiites Make Outpatient Treatment Too Risky, Need Close Monitoring Due to Risk of Patient Decompensation, Need For Continuous Telemetry Monitoring, Risk of Complication if Not Cared For in Hospital, Risk of Diagnosis Which Will Require Inpatient Eval/Care/Monitoring Post Hospital Care: D/C Shop Mechanic Helper Documentation - Plan Summary Plan Summary: See admitting attending physician orders for details about care plan. Dr. Delatorre will cover my service until 01/17/2019.
[2019-01-17] MEDS: DULOXETINE HCL 20 MG CAPSULE.DR PO SCH (21:49)
[2019-01-17] MEDS: RIVAROXABAN 15 MG TABLET PO SCH (21:49)
[2019-01-18] MEDS: LEVOTHYROXINE SODIUM 0.088 MG TABLET PO SCH (06:36)
[2019-01-18] MEDS: FUROSEMIDE 40 MG TABLET PO SCH ×2 (09:01→17:50)
[2019-01-18] MEDS: POTASSIUM CHLORIDE 10 MEQ TABLET.ER PO SCH (09:01)
[2019-01-18] MEDS: NYSTATIN TOPICAL POWDER 15 GM TP SCH ×2 (09:01→17:58)
[2019-01-18] MEDS: FLUTICASONE NASAL SPRAY 50 MCG/SPRY 120 SPRAY/16 GM NASL SCH (09:01)
[2019-01-18] MEDS: PANTOPRAZOLE SODIUM 40 MG TABLET.DR PO SCH (09:02)
[2019-01-18] MEDS: CALCIUM CARBONATE 250 MG/VITAMIN D3 125 UNIT TABLET PO SCH (09:02)
[2019-01-18] MEDS: AMLODIPINE BESYLATE 5 MG TABLET PO SCH (09:02)
[2019-01-18] MEDS: ATORVASTATIN CALCIUM 20 MG TABLET PO SCH (17:50)
--- NOTE | 2019-01-18 18:22 | PDOC PROGRESS REPORT ---
Subjective Progress Note for:: 01/18/19 Subjective:: Patient denied chest pain or difficulty with breathing. No fever or chills. No nausea, vomiting,or abdominal pain. Reason For Visit: ACUTE CHRONIC CHF,HTN,HYPOTHYROIDISM,VITAMIN B12 Physical Exam Vital Signs: Temp Pulse Resp BP Pulse Ox 98.1 F 85 17 104/61 98 01/18/19 15:09 01/18/19 15:09 01/18/19 15:09 01/18/19 15:09 01/18/19 15:09 Intake & Output 01/17/19 01/18/19 01/19/19 06:59 06:59 06:59 Intake Total 5907 120 7225 Output Total 500 Balance 6354 233 3026 Weight 90 kg 86.4 kg Physical Exam: General appearance: PRESENT: obese Head exam: PRESENT: atraumatic, normocephalic Eye exam: PRESENT: conjunctiva pink. ABSENT: pallor, scleral icterus Ear exam: PRESENT: normal external ear exam Mouth exam: PRESENT: moist Respiratory exam: PRESENT: clear to auscultation mendoza Cardiovascular exam: PRESENT: irregular rhythm, +S1, +S2. ABSENT: diastolic murmur, systolic murmur GI/Abdominal exam: PRESENT: hernia - ventral, long standing., normal bowel sounds, soft. ABSENT: distended, guarding, mass, organomegaly, rebound, tenderness Extremities exam: PRESENT: pedal edema - significant improvement Neurological exam: PRESENT: alert, awake, oriented to person, oriented to place, oriented to time, oriented to situation, CN II-XII grossly intact. ABSENT: motor sensory deficit Psychiatric exam: PRESENT: appropriate affect, normal mood. ABSENT: homicidal ideation, suicidal ideation Skin exam: PRESENT: dry, warm Murmur grade: 3 Results Laboratory Results: 01/16/19 04:51 01/16/19 04:51 01/12/19 11:46 NT-Pro-B Natriuret Pep 787 H Impressions: Chest X-Ray 01/12/19 10:24 IMPRESSION: Trace bilateral pleural effusions Bibasilar airspace disease likely atelectasis Gaseous distention of bowel under the hemidiaphragms Assessment & Plan - Diagnosis (1) Acute congestive heart failure Qualifiers: Heart failure type: unspecified Qualified Code(s): I50.9 - Heart failure, unspecified Is this a current diagnosis for this admission?: Yes (2) Chronic atrial fibrillation Is this a current diagnosis for this admission?: Yes (3) Hypertension Qualifiers: Hypertension type: essential hypertension Qualified Code(s): I10 - Essential (primary) hypertension Is this a current diagnosis for this admission?: Yes (4) Hyperlipidemia Qualifiers: Hyperlipidemia type: unspecified Qualified Code(s): E78.5 - Hyperlipidemia, unspecified Is this a current diagnosis for this admission?: Yes (5) Hypothyroidism Qualifiers: Hypothyroidism type: acquired Qualified Code(s): E03.9 - Hypothyroidism, unspecified Is this a current diagnosis for this admission?: Yes (6) Osteoarthritis involving multiple 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 of body Is this a current diagnosis for this admission?: Yes (7) Vitamin B 12 deficiency Is this a current diagnosis for this admission?: Yes - Time Time Spent with patient: 25-34 minutes Level of Care: IMCU Medications reviewed and adjusted accordingly: Yes Anticipated discharge: Home with Homehealth Within: Other - Inpatient Certification Based on my medical assessment, after consideration of the patient's comorbidities, presenting symptoms, or acuity I expect that the services needed warrant INPATIENT care.: Yes I certify that my determination is in accordance with my understanding of Medicare's requirements for reasonable and necessary INPATIENT services [42 CFR 412.3e].: Yes Medical Necessity: Significant Comorbidiites Make Outpatient Treatment Too Risky, Need Close Monitoring Due to Risk of Patient Decompensation, Need For Continuous Telemetry Monitoring, Risk of Complication if Not Cared For in Hospital, Risk of Diagnosis Which Will Require Inpatient Eval/Care/Monitoring Post Hospital Care: D/C Line Servicer Documentation - Plan Summary Plan Summary: D/C Amlodipine. Start on Cardizem 30 mg p.o q 8 hours. I discussed case with Dr. Schmitt and in agreement to start on Cardizem for rate control in view of her inte rmittent exertional symptoms. Continue all other current medication management. Obtain limited right sided echocardiogram evaluation for better functional interrogation.
[2019-01-18] MEDS: DULOXETINE HCL 20 MG CAPSULE.DR PO SCH (21:14)
[2019-01-18] MEDS: DILTIAZEM HCL 30 MG TABLET PO SCH (21:14)
[2019-01-18] MEDS: RIVAROXABAN 15 MG TABLET PO SCH (21:14)
[2019-01-19] MEDS: LEVOTHYROXINE SODIUM 0.088 MG TABLET PO SCH (05:18)
[2019-01-19] MEDS: DILTIAZEM HCL 30 MG TABLET PO SCH ×3 (05:18→21:54)
[2019-01-19] MEDS: FLUTICASONE NASAL SPRAY 50 MCG/SPRY 120 SPRAY/16 GM NASL SCH (09:15)
[2019-01-19] MEDS: PANTOPRAZOLE SODIUM 40 MG TABLET.DR PO SCH (09:15)
[2019-01-19] MEDS: CALCIUM CARBONATE 250 MG/VITAMIN D3 125 UNIT TABLET PO SCH (09:15)
[2019-01-19] MEDS: FUROSEMIDE 40 MG TABLET PO SCH ×2 (09:15→17:54)
[2019-01-19] MEDS: POTASSIUM CHLORIDE 10 MEQ TABLET.ER PO SCH (09:15)
[2019-01-19] MEDS: NYSTATIN TOPICAL POWDER 15 GM TP SCH ×2 (09:17→17:54)
[2019-01-19] MEDS: ATORVASTATIN CALCIUM 20 MG TABLET PO SCH (17:54)
[2019-01-19] MEDS: DULOXETINE HCL 20 MG CAPSULE.DR PO SCH (21:54)
[2019-01-19] MEDS: RIVAROXABAN 15 MG TABLET PO SCH (21:55)
--- NOTE | 2019-01-20 00:58 | XCELERA REPORT ---
[address] [address] Transthoracic Echocardiogram Report Name: WILLIAM FISH Age: 88 yrs Gender: Female : 1930 Patient Status: Inpatient Patient Location: [address] [place], [place] [address] Study Date: 01/19/2019 02:56 PM Procedure: A two-dimensional transthoracic echocardiogram with color flow and Doppler was performed in limited views only. Study Quality: Fair. Reason For Study: Limited for right sided evaluation, CHF, Afib Ordering Physician: JUSTICE HARRIS Performed By: Ani Gauthier Interpretation Summary There is no tricuspid stenosis. There is a mild amount of tricuspid regurgitation There is mild pulmonary hypertension by echo RVSP is 42 mm of Hg , with RA mean of 10. MMode/2D Measurements & Calculations RVDd: 3.6 cm LVIDd: 4.9 cm FS: 34.5 % Ao root diam: 3.0 cm IVSd: 1.2 cm LVIDs: 3.2 cm EDV(Teich): 111.1 ml Ao root area: 7.0 cm2 LVPWd: 1.2 cm ESV(Teich): 40.6 ml LA dimension: 4.0 cm EF(Teich): 63.5 % Doppler Measurements & Calculations TR max junior: 281.0 cm/sec TR max P.6 mmHg Tricuspid Valve There is no tricuspid stenosis. There is a mild amount of tricuspid regurgitation. There is mild pulmonary hypertension by echo. RVSP is 42 mm of Hg , with RA mean of 10. : JUSTICE HARRIS Lakshmi
[2019-01-20] MEDS: LEVOTHYROXINE SODIUM 0.088 MG TABLET PO SCH (05:27)
[2019-01-20] MEDS: DILTIAZEM HCL 30 MG TABLET PO SCH (05:27)
[2019-01-20] MEDS: PANTOPRAZOLE SODIUM 40 MG TABLET.DR PO SCH (09:59)
[2019-01-20] MEDS: POTASSIUM CHLORIDE 10 MEQ TABLET.ER PO SCH (09:59)
[2019-01-20] MEDS: FLUTICASONE NASAL SPRAY 50 MCG/SPRY 120 SPRAY/16 GM NASL SCH (09:59)
[2019-01-20] MEDS: FUROSEMIDE 20 MG TABLET PO SCH ×2 (09:59→17:33)
[2019-01-20] MEDS: CALCIUM CARBONATE 250 MG/VITAMIN D3 125 UNIT TABLET PO SCH (09:59)
[2019-01-20] MEDS ORDERED: FUROSEMIDE 40 MG TABLET PO SCH (10:00)
[2019-01-20] MEDS: NYSTATIN TOPICAL POWDER 15 GM TP SCH ×2 (10:00→17:24)
[2019-01-20] MEDS: DILTIAZEM HCL 120 MG CAP.SR.24H PO SCH (12:37)
[2019-01-20] MEDS: ATORVASTATIN CALCIUM 20 MG TABLET PO SCH (17:33)
[2019-01-20] MEDS: DULOXETINE HCL 20 MG CAPSULE.DR PO SCH (21:20)
[2019-01-20] MEDS: RIVAROXABAN 15 MG TABLET PO SCH (21:20)
[2019-01-21] MEDS: LEVOTHYROXINE SODIUM 0.088 MG TABLET PO SCH (05:22)
[2019-01-21] MEDS: POTASSIUM CHLORIDE 10 MEQ TABLET.ER PO SCH (09:42)
[2019-01-21] MEDS: CALCIUM CARBONATE 250 MG/VITAMIN D3 125 UNIT TABLET PO SCH (09:42)
[2019-01-21] MEDS: NYSTATIN TOPICAL POWDER 15 GM TP SCH (09:42)
[2019-01-21] MEDS: PANTOPRAZOLE SODIUM 40 MG TABLET.DR PO SCH (09:42)
[2019-01-21] MEDS: DILTIAZEM HCL 120 MG CAP.SR.24H PO SCH (09:42)
[2019-01-21] MEDS: FUROSEMIDE 20 MG TABLET PO SCH ×2 (09:42→17:54)
[2019-01-21] MEDS: FLUTICASONE NASAL SPRAY 50 MCG/SPRY 120 SPRAY/16 GM NASL SCH (09:42)
[2019-01-21] MEDS ORDERED: CYANOCOBALAMIN (VITAMIN B-12) INJ 1000 MCG/1 ML VIAL IM SCH (10:00)
--- NOTE | 2019-01-21 17:08 | PDOC PROGRESS REPORT ---
Subjective Progress Note for:: 01/19/19 Subjective:: Patient denied any chest pain or difficulty with breathing. No fever or chills. No nausea, vomiting, or abdominal pain. Reason For Visit: ACUTE CHRONIC CHF,HTN,HYPOTHYROIDISM,VITAMIN B12 Physical Exam Vital Signs: Temp Pulse Resp BP Pulse Ox 97.6 F 61 18 126/53 H 97 01/19/19 11:54 01/19/19 13:57 01/19/19 11:54 01/19/19 11:54 01/19/19 11:54 Intake & Output 01/18/19 01/19/19 01/20/19 06:59 06:59 06:59 Intake Total 700 1160 960 Output Total 0 Balance 700 1160 960 Weight 86.4 kg 86.5 kg 86.5 kg Physical Exam: General appearance: PRESENT: obese Head exam: PRESENT: atraumatic, normocephalic Eye exam: PRESENT: conjunctiva pink. ABSENT: pallor, scleral icterus Ear exam: PRESENT: normal external ear exam Mouth exam: PRESENT: moist Respiratory exam: PRESENT: clear to auscultation mendoza Cardiovascular exam: PRESENT: irregular rhythm, +S1, +S2. ABSENT: diastolic murmur, systolic murmur GI/Abdominal exam: PRESENT: hernia - ventral, long standing., normal bowel sounds, soft. ABSENT: distended, guarding, mass, organomegaly, rebound, tenderness Extremities exam: PRESENT: minimal pedal edema Neurological exam: PRESENT: alert, awake, oriented to person, oriented to place, oriented to time, oriented to situation, CN II-XII grossly intact. ABSENT: motor sensory deficit Psychiatric exam: PRESENT: appropriate affect, normal mood. ABSENT: homicidal ideation, suicidal ideation Skin exam: PRESENT: dry, warm Murmur grade: 3 Results Laboratory Results: 01/16/19 04:51 01/16/19 04:51 01/12/19 11:46 NT-Pro-B Natriuret Pep 787 H Impressions: Chest X-Ray 01/12/19 10:24 IMPRESSION: Trace bilateral pleural effusions Bibasilar airspace disease likely atelectasis Gaseous distention of bowel under the hemidiaphragms Assessment & Plan - Diagnosis (1) Acute on chronic diastolic (congestive) heart failure Is this a current diagnosis for this admission?: Yes Plan: Continue current medication management. D/C Immediate release Cardizem and start on Cardizem CD 120 mg p.o daily (2) Chronic atrial fibrillation Is this a current diagnosis for this admission?: Yes (3) Hypertension Qualifiers: Hypertension type: essential hypertension Qualified Code(s): I10 - Essential (primary) hypertension Is this a current diagnosis for this admission?: Yes (4) Hyperlipidemia Qualifiers: Hyperlipidemia type: unspecified Qualified Code(s): E78.5 - Hyperlipidemia, unspecified Is this a current diagnosis for this admission?: Yes (5) Hypothyroidism Qualifiers: Hypothyroidism type: acquired Qualified Code(s): E03.9 - Hypothyroidism, unspecified Is this a current diagnosis for this admission?: Yes (6) Osteoarthritis involving multiple 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 of body Is this a current diagnosis for this admission?: Yes (7) Vitamin B 12 deficiency Is this a current diagnosis for this admission?: Yes - Time Time Spent with patient: 25-34 minutes Level of Care: IMCU Medications reviewed and adjusted accordingly: Yes Anticipated discharge: Home with Homehealth Within: Other - Inpatient Certification Based on my medical assessment, after consideration of the patient's comorbidities, presenting symptoms, or acuity I expect that the services needed warrant INPATIENT care.: Yes I certify that my determination is in accordance with my understanding of Medicare's requirements for reasonable and necessary INPATIENT services [42 CFR 412.3e].: Yes Medical Necessity: Significant Comorbidiites Make Outpatient Treatment Too Risky, Need Close Monitoring Due to Risk of Patient Decompensation, Need For Continuous Telemetry Monitoring, Risk of Complication if Not Cared For in Hospital, Risk of Diagnosis Which Will Require Inpatient Eval/Care/Monitoring Post Hospital Care: D/C Tufting Creeler Documentation - Plan Summary Plan Summary: Continue current medication management. Plan for CD formulation of Cardizem to sam administration and improve medication compliance upon discharge.
--- NOTE | 2019-01-21 17:13 | PDOC PROGRESS REPORT ---
Subjective Progress Note for:: 01/20/19 Subjective:: Patient denied any chest pain or difficulty with breathing. Leg swelling has significantly improved. No fever or chills. No nausea, vomiting, or abdominal pain. Reason For Visit: ACUTE CHRONIC CHF,HTN,HYPOTHYROIDISM,VITAMIN B12 Physical Exam Vital Signs: Temp Pulse Resp BP Pulse Ox 97.6 F 71 12 112/65 100 01/20/19 11:22 01/20/19 14:00 01/20/19 11:22 01/20/19 11:22 01/20/19 11:22 Intake & Output 01/19/19 01/20/19 01/21/19 06:59 06:59 06:59 Intake Total 2031 036 1449 Output Total 0 500 Balance 1160 960 580 Weight 86.5 kg 85.2 kg Physical Exam: General appearance: PRESENT: obese Head exam: PRESENT: atraumatic, normocephalic Eye exam: PRESENT: conjunctiva pink. ABSENT: pallor, scleral icterus Ear exam: PRESENT: normal external ear exam Mouth exam: PRESENT: moist Respiratory exam: PRESENT: clear to auscultation mendoza Cardiovascular exam: PRESENT: irregular rhythm, +S1, +S2. ABSENT: diastolic mu rmur, systolic murmur GI/Abdominal exam: PRESENT: hernia - ventral, long standing., normal bowel danita nds, soft. ABSENT: distended, guarding, mass, organomegaly, rebound, tenderness Extremities exam: PRESENT: pedal edema - significant improvement Neurological exam: PRESENT: alert, awake, oriented to person, oriented to place, oriented to time, oriented to situation, CN II-XII grossly intact. ABSENT: motor sensory deficit Psychiatric exam: PRESENT: appropriate affect, normal mood. ABSENT: homicidal ideation, suicidal ideation Skin exam: PRESENT: dry, warm Murmur grade: 3 Results Laboratory Results: 01/16/19 04:51 01/16/19 04:51 01/12/19 11:46 NT-Pro-B Natriuret Pep 787 H Impressions: Chest X-Ray 01/12/19 10:24 IMPRESSION: Trace bilateral pleural effusions Bibasilar airspace disease likely atelectasis Gaseous distention of bowel under the hemidiaphragms Assessment & Plan - Diagnosis (1) Acute on chronic diastolic (congestive) heart failure Is this a current diagnosis for this admission?: Yes Plan: Patient missed administration of Cardizem CD due to demonstrable low blood pressure. This may be due to her Lasix 40 mg p bid. I will decrease Lasix to 30 mg p.o bid and hopefully she will start on Cardizem CD tomorrow. If she remain stable plan for discharge in 48 hours. (2) Chronic atrial fibrillation Is this a current diagnosis for this admission?: Yes (3) Hypertension Qualifiers: Hypertension type: essential hypertension Qualified Code(s): I10 - Essen tial (primary) hypertension Is this a current diagnosis for this admission?: Yes (4) Hyperlipidemia Qualifiers: Hyperlipidemia type: unspecified Qualified Code(s): E78.5 - Hyperlipidemia, unspecified Is this a current diagnosis for this admission?: Yes (5) Hypothyroidism Qualifiers: Hypothyroidism type: acquired Qualified Code(s): E03.9 - Hypothyroidism, unspecified Is this a current diagnosis for this admission?: Yes (6) Osteoarthritis involving multiple 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 of body Is this a current diagnosis for this admission?: Yes (7) Vitamin B 12 deficiency Is this a current diagnosis for this admission?: Yes - Time Time Spent with patient: 25-34 minutes Level of Care: IMCU Medications reviewed and adjusted accordingly: Yes Anticipated discharge: Home with Homehealth Within: within 48 hours - Inpatient Certification Based on my medical assessment, after consideration of the patient's comorbidities, presenting symptoms, or acuity I expect that the services needed warrant INPATIENT care.: Yes I certify that my determination is in accordance with my understanding of [employer] 's requirements for reasonable and necessary INPATIENT services [42 CFR 412.3e].: Yes Medical Necessity: Significant Comorbidiites Make Outpatient Treatment Too Risky, Need Close Monitoring Due to Risk of Patient Decompensation, Need For Continuous Telemetry Monitoring, Risk of Complication if Not Cared For in Hospital, Risk of Diagnosis Which Will Require Inpatient Eval/Care/Monitoring Post Hospital Care: D/C C++ Professor Documentation - Plan Summary Plan Summary: Continue current medication management. Overall prognosis fair and she my be discharge home tomorrow.
--- NOTE | 2019-01-21 17:16 | PDOC PROGRESS REPORT ---
Subjective Progress Note for:: 01/21/19 Subjective:: Patient denied any chest pain or difficulty with breathing. No fever or chills. No nausea, vomiting, or abdominal pain. Reason For Visit: ACUTE CHRONIC CHF,HTN,HYPOTHYROIDISM,VITAMIN B12 Physical Exam Vital Signs: Temp Pulse Resp BP Pulse Ox 97.2 F 64 16 119/54 L 99 01/21/19 15:39 01/21/19 15:39 01/21/19 15:39 01/21/19 15:39 01/21/19 15:39 Intake & Output 01/20/19 01/21/19 01/22/19 06:59 06:59 06:59 Intake Total 960 1080 720 Output Total 0 500 0 Balance 960 580 720 Weight 85.2 kg 86.1 kg Physical Exam: General appearance: PRESENT: obese Head exam: PRESENT: atraumatic, normocephalic Eye exam: PRESENT: conjunctiva pink. ABSENT: pallor, scleral icterus Ear exam: PRESENT: normal external ear exam Mouth exam: PRESENT: moist Respiratory exam: PRESENT: clear to auscultation mendoza Cardiovascular exam: PRESENT: irregular rhythm, +S1, +S2. ABSENT: diastolic murmur, systolic murmur GI/Abdominal exam: PRESENT: hernia - ventral, long standing., normal bowel sounds, soft. ABSENT: distended, guarding, mass, organomegaly, rebound, tenderness Extremities exam: PRESENT: pedal edema - significant improvement Neurological exam: PRESENT: alert, awake, oriented to person, oriented to place, oriented to time, oriented to situation, CN II-XII grossly intact. ABSENT: motor sensory deficit Psychiatric exam: PRESENT: appropriate affect, normal mood. ABSENT: homicidal ideation, suicidal ideation Skin exam: PRESENT: dry, warm Murmur grade: 3 Results Laboratory Results: 01/16/19 04:51 01/16/19 04:51 01/12/19 11:46 NT-Pro-B Natriuret Pep 787 H Impressions: Chest X-Ray 01/12/19 10:24 IMPRESSION: Trace bilateral pleural effusions Bibasilar airspace disease likely atelectasis Gaseous distention of bowel under the hemidiaphragms Assessment & Plan - Diagnosis (1) Acute on chronic diastolic (congestive) heart failure Is this a current diagnosis for this admission?: Yes (2) Chronic atrial fibrillation Is this a current diagnosis for this admission?: Yes (3) Hypertension Qualifiers: Hypertension type: essential hypertension Qualified Code(s): I10 - Essential (primary) hypertension Is this a current diagnosis for this admission?: Yes (4) Hyperlipidemia Qualifiers: Hyperlipidemia type: unspecified Qualified Code(s): E78.5 - Hyperlipidemia, unspecified Is this a current diagnosis for this admission?: Yes (5) Hypothyroidism Qualifiers: Hypothyroidism type: acquired Qualified Code(s): E03.9 - Hypothyroidism, unspecified Is this a current diagnosis for this admission?: Yes (6) Osteoarthritis involving multiple 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 of body Is this a current diagnosis for this admission?: Yes (7) Vitamin B 12 deficiency Is this a current diagnosis for this admission?: Yes - Time Time Spent with patient: 25-34 minutes Level of Care: IMCU Medications reviewed and adjusted accordingly: Yes Anticipated discharge: Home with Homehealth Within: within 48 hours - Inpatient Certification Based on my medical assessment, after consideration of the patient's comorbidities, presenting symptoms, or acuity I expect that the services needed warrant INPATIENT care.: Yes I certify that my determination is in accordance with my understanding of Medicare's requirements for reasonable and necessary INPATIENT services [42 CFR 412.3e].: Yes Medical Necessity: Significant Comorbidiites Make Outpatient Treatment Too Risky, Need Close Monitoring Due to Risk of Patient Decompensation, Need For Continuous Telemetry Monitoring, Risk of Complication if Not Cared For in Hospital, Risk of Diagnosis Which Will Require Inpatient Eval/Care/Monitoring 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 No significant bradycardia or anurag st pain. If she continue to remain stable, she will be discharge home tomorrow.
[2019-01-21] MEDS: ATORVASTATIN CALCIUM 20 MG TABLET PO SCH (17:54)
[2019-01-21] MEDS: DULOXETINE HCL 20 MG CAPSULE.DR PO SCH (21:28)
[2019-01-21] MEDS: RIVAROXABAN 15 MG TABLET PO SCH (21:28)
[2019-01-22] MEDS: LEVOTHYROXINE SODIUM 0.088 MG TABLET PO SCH (05:21)
[2019-01-22] MEDS: PANTOPRAZOLE SODIUM 40 MG TABLET.DR PO SCH (09:33)
[2019-01-22] MEDS: CALCIUM CARBONATE 250 MG/VITAMIN D3 125 UNIT TABLET PO SCH (09:33)
[2019-01-22] MEDS: DILTIAZEM HCL 120 MG CAP.SR.24H PO SCH (09:33)
[2019-01-22] MEDS: FUROSEMIDE 20 MG TABLET PO SCH (09:33)
[2019-01-22] MEDS: POTASSIUM CHLORIDE 10 MEQ TABLET.ER PO SCH (09:33)
[2019-01-22] MEDS: FLUTICASONE NASAL SPRAY 50 MCG/SPRY 120 SPRAY/16 GM NASL SCH (09:34)
--- NOTE | 2019-01-22 12:43 | PDOC DISCHARGE SUMMARY ---
Impression - Admit/DC Date/PCP Admission Date/Primary Care Provider: 01/12/19 10:06 JUSTICE HARRIS Discharge Date: 01/22/19 - Discharge Diagnosis (1) Acute on chronic diastolic (congestive) heart failure Is this a current diagnosis for this admission?: Yes (2) Chronic atrial fibrillation Is this a current diagnosis for this admission?: Yes (3) Hypertension Is this a current diagnosis for this admission?: Yes (4) Hyperlipidemia Is this a current diagnosis for this admission?: Yes (5) Hypothyroidism Is this a current diagnosis for this admission?: Yes (6) Osteoarthritis involving multiple 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 of body Is this a current diagnosis for this admission?: Yes (7) Vitamin B 12 deficiency Is this a current diagnosis for this admission?: Yes - Assessment Summary: Patient was admitted for acute CHF due to progressively worsen difficulty with breathing and bilateral leg swelling associated orthopnea and PND. Her echocardiogram revealed satisfactory LVEF but her diastolic function was not adequately assessed due to atrial fibrillation. There was with moderately dilated left atrium with mild mitral regurgitation. Her right sided structure were not adequately evaluated but suggested mild pulmonary hypertension and mild tricuspid regurgitation. Her CHF is deduced as diastolic type. She was trans ition to CD formulation Cardizem for blood pressure control and heart rate management. She remain stable and agreeable to discharge home today. she was seen in consultation by Dr. Schmitt, databases computer consultant, who his in agreement with her care during this hospitalization. she will follow up with Dr. Schmitt and myself in the office as instructed upon discharge. - Additional Information Discharge Diet: Cardiac Discharge Activity: Activity As Tolerated, Balance Activity w/Rest, Keep Legs Elevated, Weigh Daily Referrals: JUSTICE HARRIS MD [Primary Care Provider] - 01/26/19 10:00 am (Obtain CBC, BMP at follow up office visit.) FEDE FLOREZ MD [ACTIVE STAFF] - Prescriptions: Diltiazem HCl [Cardizem Cd 120 mg Capsule] 120 mg PO DAILY #30 cap.sr.24h Furosemide [Lasix 20 mg Tablet] 1.5 tab PO QAM 30 Days #45 tablet Home Medications: Benzonatate [Tessalon Perle 100 mg Capsule] 100 mg PO TIDP PRN 01/12/19 Bifidobacterium Infantis [Align 4 mg Capsule] 4 mg PO DAILY 01/12/19 Calcium Carbonate/Vitamin D3 [Calcium 600-Vit D3 400 Caplet] 1 tab PO DAILY 1 03/14/18 Cyanocobalamin (Vitamin B-12) [Vitamin B-12 Inj 1000 Mcg/1 ml Vial] 1,000 mcg IM .[id number] 01/12/19 Duloxetine HCl [Cymbalta 20 mg Capsule.dr] 20 mg PO QHS 01/12/19 Fluticasone Propionate [Flonase Nasal [place] 50 Mcg/[place] 16 gm] 2 spray NASL DAILY 01/12/19 Krill/Om-3/Dha/Epa/Phospho/Ast [Megared [place]-3 Krill Oil Sfgl] 1 cap PO DAILY 01/12/19 Levothyroxine Sodium 88 mcg PO Q6AM 01/12/19 Lidocaine [Lidoderm 5% (700 mg) Transdermal Patch] 1 patch TD DAILYP PRN 01/12/19 Nystatin [Mycostatin Cream 15 gm] 1 applic TOP BIDP PRN 01/12/19 Potassium Chloride [Klor-Con M20] 20 meq PO DAILY 01/12/19 Rivaroxaban [Xarelto 15 mg Tablet] 15 mg PO DAILY 01/12/19 Rosuvastatin Calcium [Crestor 10 mg Tablet] 10 mg PO QPM 01/12/19 Tramadol HCl/Acetaminophen [Ultracet 37.5 mg/325 mg Tablet] 1 tab PO Q8HP PRN 01/12/19 Diltiazem HCl [Cardizem Cd 120 mg Capsule] 120 mg PO DAILY #30 cap.sr.24h 01/22/19 Furosemide [Lasix 20 mg Tablet] 1.5 tab PO QAM 30 Days #45 tablet 01/22/19 History of Present Illiness History of Present Illness: WILLIAM FISH is a 88 year old female patient known to my practice who presented to the office with several days history of increasing difficulty with breathing and worsening bilateral leg swelling. Patient reported limitation in her activities due to exertional dyspnea. She reported compliance with her prescribed medication, dietary salt restrictions as well as fluid restriction. She described nocturnal coughing spells, PND, and orthopnea. She denied any significant chest pain. No nausea, vomiting, abdominal pain, constipation, or diarrhea. No fever or chills. Cough is minimally productive of clear white sputum. In view of her morbidities and significant weight gain and clinical findings of near anasarca status, she was advised hospitalization for further evaluation and management. Her morbidities are as listed below. Hospital Course Hospital Course: Patient was admitted for acute CHF due to progressively worsen difficulty with breathing and bilateral leg swelling associated orthopnea and PND. Her echocardiogram revealed satisfactory LVEF but her diastolic function was not adequately assessed due to atrial fibrillation. There was with moderately dilated left atrium with mild mitral regurgitation. Her right sided structure were not adequately evaluated but suggested mild pulmonary hypertension and mild tricuspid regurgitation. Her CHF is deduced as diastolic type. She was transition to CD formulation Cardizem for blood pressure control and heart rate management. She was treated with IV Lasix and transition back to oral Lasix with adjustment in her dosing schedule and amount. She remain stable and agreeable to discharge home today. she was seen in consultation by Dr. Schmitt, databases computer consultant, who his in agreement with her care during this hospitalization. she will follow up with Dr. Schmitt and myself in the office as instructed upon discharge. Physical Exam Vital Signs: Temp Pulse Resp BP Pulse Ox 97.4 F 51 L 18 134/51 H 99 01/22/19 07:51 01/22/19 07:51 01/22/19 07:51 01/22/19 07:51 01/22/19 07:51 Intake & Output 01/21/19 01/22/19 01/23/19 06:59 06:59 06:59 Intake Total 1080 1080 Output Total 500 0 Balance 580 1080 Weight 86.1 kg 86.4 kg General appearance: PRESENT: obese Head exam: PRESENT: atraumatic, normocephalic Eye exam: PRESENT: conjunctiva pink. ABSENT: pallor, scleral icterus Ear exam: PRESENT: normal external ear exam Mouth exam: PRESENT: moist Respiratory exam: PRESENT: clear to auscultation mendoza Cardiovascular exam: PRESENT: irregular rhythm, +S1, +S2. ABSENT: diastolic murmur, systolic murmur GI/Abdominal exam: PRESENT: hernia - ventral, long standing., normal bowel sounds, soft. ABSENT: distended, guarding, mass, organomegaly, rebound, tenderness Extremities exam: PRESENT: pedal edema - significant improvement Neurological exam: PRESENT: alert, awake, oriented to person, oriented to place, oriented to time, oriented to situation, CN II-XII grossly intact. ABSENT: motor sensory deficit Psychiatric exam: PRESENT: appropriate affect, normal mood. ABSENT: homicidal ideation, suicidal ideation Skin exam: PRESENT: dry, warm Results Laboratory Results: WBC 7.3 10^3/uL (4.0-10.5) 01/16/19 04:51 RBC 3.40 10^6/uL (3.72-5.28) L 01/16/19 04:51 Hgb 10.0 g/dL (12.0-15.5) L 01/16/19 04:51 Hct 30.3 % (36.0-47.0) L 01/16/19 04:51 MCV 89 fl (80-97) 01/16/19 04:51 MCH 29.4 pg (27.0-33.4) 01/16/19 04:51 MCHC 32.9 g/dL (32.0-36.0) 01/16/19 04:51 RDW 17.1 % (11.5-14.0) H 01/16/19 04:51 Plt Count 395 10^3/uL (150-450) 01/16/19 04:51 Lymph % (Auto) 17.1 % (13-45) 01/16/19 04:51 [place] % (Auto) 8.6 % (3-13) 01/16/19 04:51 Eos % (Auto) 2.4 % (0-6) 01/16/19 04:51 Baso % (Auto) 1.1 % (0-2) 01/16/19 04:51 Absolute Neuts (auto) 5.2 10^3/uL (1.7-8.2) 01/16/19 04:51 Absolute Lymphs (auto) 1.2 10^3/uL (0.5-4.7) 01/16/19 04:51 Absolute Monos (auto) 0.6 10^3/uL (0.1-1.4) 01/16/19 04:51 Absolute Eos (auto) 0.2 10^3/uL (0.0-0.6) 01/16/19 04:51 Absolute Basos (auto) 0.1 10^3/uL (0.0-0.2) 01/16/19 04:51 Seg Neutrophils % 70.8 % (42-78) 01/16/19 04:51 Carbonic Acid 1.23 mmol/L (1.05-1.35) 01/12/19 11:30 HCO3/H2CO3 Ratio 20:1 01/12/19 11:30 ABG pH 7.41 (7.35-7.45) 01/12/19 11:30 ABG pCO2 40.9 mmHg (35-45) 01/12/19 11:30 ABG pO2 87.4 mmHg (80-100) 01/12/19 11:30 ABG HCO3 25.2 mmol/L (20-24) H 01/12/19 11:30 ABG Total CO2 26.5 mmol/L (21-25) H 01/12/19 11:30 ABG O2 Saturation 96.7 % (94-98) 01/12/19 11:30 ABG Base Excess 0.5 mmol/L 01/12/19 11:30 FiO2 28% 01/12/19 11:30 Sodium 135.9 mmol/L (137-145) L 01/16/19 04:51 Potassium 4.0 mmol/L (3.6-5.0) 01/16/19 04:51 Chloride 98 mmol/L (98-107) 01/16/19 04:51 Carbon Dioxide 29 mmol/L (22-30) 01/16/19 04:51 Anion Gap 9 (5-19) 01/16/19 04:51 BUN 12 mg/dL (7-20) 01/16/19 04:51 Creatinine 0.78 mg/dL (0.52-1.25) 01/16/19 04:51 Est GFR ( Amer) > 60 (>60) 01/16/19 04:51 Est GFR (MDRD) Non-Af > 60 (>60) 01/16/19 04:51 Glucose 116 mg/dL (75-110) H 01/16/19 04:51 Calcium 8.8 mg/dL (8.4-10.2) 01/16/19 04:51 Total Bilirubin 0.4 mg/dL (0.2-1.3) 01/12/19 11:46 Direct Bilirubin 0.2 mg/dL (0.0-0.4) 01/12/19 11:46 Neonat Total Bilirubin Not Reportable 01/12/19 11:46 Neonat Direct Bilirubin Not Reportable 01/12/19 11:46 Neonat Indirect Bili Not Reportable 01/12/19 11:46 AST 23 U/L (14-36) 01/12/19 11:46 ALT 8 U/L (<35) 01/12/19 11:46 Alkaline Phosphatase 157 U/L (38-126) H 01/12/19 11:46 NT-Pro-B Natriuret Pep 787 pg/mL (<450) H 01/12/19 11:46 Total Protein 6.9 g/dL (6.3-8.2) 01/12/19 11:46 Albumin 3.6 g/dL (3.5-5.0) 01/12/19 11:46 TSH 1.35 uIU/mL (0.47-4.68) 01/13/19 14:28 Free T4 0.71 ng/dL (0.78-2.19) L 01/13/19 14:28 Free T3 pg/mL 1.89 pg/mL (2.77-5.27) L 01/13/19 14:28 01/12/19 11:46 NT-Pro-B Natriuret Pep 787 H Impressions: Chest X-Ray 01/12/19 10:24 IMPRESSION: Trace bilateral pleural effusions Bibasilar airspace disease likely atelectasis Gaseous distention of bowel under the hemidiaphragms Plan Health Concerns: Medication, dietary, and fluid restriction compliance. she is high risk for 30 days readmission. I will enroll in CHF program with [employer]EL[employer] services. Plan of Treatment: Maintain on all current medication, dietary, and fluid restriction management. Goals: Reduce 30 days readmission risk and improve her management compliance. Time Spent: Greater than 30 Minutes - Post discharge care coordination and counselling. Stroke Is this a Stroke Patient?: No Acute Heart Failure - Is this a Heart Failure Patient?: Yes Documentation of LVEF assessment?: Yes LVEF < 40%?: No- if no continue to question #3 3. Anticoagulant therapy for permanect/persistent/paraoxysmal Afib or Aflutter: Yes Follow-up Appointment scheduled within 7 days?: Yes
[2019-01-22 12:50] VITALS: BP 121/60
== END 2019-01-22 13:28 | disposition home health service (06) | DRG 292 ==
LOC: 3W 10:06
PROVIDERS: ADMIT Internal Medicine Geriatric Medicine; ATTEND Internal Medicine Geriatric Medicine
DX: I11.0 Hypertensive heart disease with heart failure (principal); I48.20 Chronic atrial fibrillation, unspecified; I50.33 Acute on chronic diastolic (congestive) heart failure; E03.9 Hypothyroidism, unspecified; E78.5 Hyperlipidemia, unspecified; E53.8 Deficiency of other specified B group vitamins; M19.90 Unspecified osteoarthritis, unspecified site; F32.9 Major depressive disorder, single episode, unspecified; Z79.01 Long term (current) use of anticoagulants; Z79.899 Other long term (current) drug therapy
CPT/HCPCS: 36415; 36600; 71046; 80048; 80053; 82803; 83880; 84439; 84443; 84481; 85025; 93005; 93010; 93306; 93321; 93970; 94799; J1940; J3490